=== PATIENT | male | born 1945 | race Caucasian/White ===

== ENCOUNTER 2017-02-27 09:24 | Observation (INO) | payer BC ==
--- NOTE | 2017-02-27 10:28 | RAD ---
ONE VIEW CHEST: Comparison: 01-21-17 History: Chest pain, low grade fever. FINDINGS: Stable left sided transvenous defibrillator. Note: Lead terminating over the right ventricle is not included on the current exam. Heart is enlarged. Pulmonary vessels are within normal limits. Costoph renic angles are clear. Chronic changes of the lung parenchyma. Hyperinflation is redemonstrated. No pneumothorax. Mild osteopenic changes. IMPRESSION: 1. Cardiomegaly. No evidence of congestive heart failure. 2. Left sided transvenous pacemaker, incompletely evaluated. POS: [facility]
[2017-02-27 10:38] LABS: #Eosinphils 0.1 thou/uL (0.0-0.7); #Lymphocytes 0.8 thou/uL (1.20-3.40); #Monocytes 0.4 thou/uL (0.11-0.59); #Neutrophils 9.2 thou/uL (1.40-6.50); %Basophils 0.3 % (0.0-1.0); %Eosinophils 0.9 % (0.0-10.0); %Lymphocytes 7.5 % (21.0-51.0); %Monocytes 3.6 % (0.0-10.0); Hematocrit 40.9 % (42.0-52.0); Mean Platelet Volume 6.9 fL (7.4-10.4); Red Blood Cell (RBC) Count 4.22 mill/uL (4.70-6.10); White Blood Cell (WBC) Count 10.5 thou/uL (4.8-10.8)
[2017-02-27 11:03] LABS: ALT (SGPT) 14 U/L (8-55); AST (SGOT) 14 U/L (5-34); Alkaline Phosphatase 80 U/L (40-150); Anion Gap 13 mmol/L (10-20); BUN (Urea Nitrogen) 35 mg/dL (8.4-25.7); Bilirubin, Total 0.5 mg/dL (0.2-1.2); CK (CPK) 42 U/L (30-200); Calc. Creatinine Clearance 0 mL/min (70-130); Calcium 9.3 mg/dL (7.8-10.44); Carbon Dioxide 28 mmol/L (23-31); Chloride 102 mmol/L (98-107); Estimated GFR-MDRD 39; Protein, Total 6.6 g/dL (5.8-8.1)
[2017-02-27 11:06] LABS: Troponin I 0.032 ng/mL (< 0.028)
[2017-02-27] MEDS ORDERED: Furosemide 40 MG/4 ML VIAL ONE (12:48)
--- NOTE | 2017-02-27 13:48 | HP ---
PRIMARY CARE PHYSICIAN: Dr. Wagner Mccormack. REASON FOR ADMISSION: Mild congestive heart failure and chronic obstructive pulmonary disease exace rbation. HISTORY OF PRESENT ILLNESS: A 71-year-old male who has chronic systolic heart failure with last ech ocardiography showed EF 20%-25%. He has an AICD in place. At the same time, he also has history of COPD, who came to the emergency room with complaint of 3 days history of increasing shortness of br eath, chest tightness and dizziness for the last 3 days. He also has cough productive of white sput um. He was feeling subjective feverish at home. He denies any orthopnea. He reports that he gaine d some weight. He does report lower extremity edema. The patient also reports that since yesterday , his blood sugar is also fluctuating too low to very high. The patient denies using oxygen at home. He was trying his inhalers without any significant help. As the patient's shortness of breath had gotten worse and more worse last night and that is why toda y patient decided to come to the emergency room. Patient called paramedics and paramedics saw him w ith low grade fever with a temperature of 99. He was wheezing in both lungs. Paramedics gave him D uoNeb therapy, Solu-Medrol 125 mg, and oxygen 2 liter nasal cannula and subsequently the patient was brought to emergency room. As per paramedics, his blood sugar was 262. Today in the emergency room, patient had electrocardiogram which showed pacemaker rhythm. Chest x-r ay showed cardiomegaly without any significant congestion. The patient's routine blood tests showed indeterminant troponin. At this point, we are admitting this patient for observation for mild COPD and CHF exacerbation. Patient reports that his normal baseline is he is able to walk 75 feet 2-3 times per day. The patie nt is still smoking at home. REVIEW OF SYSTEMS: The following complete review of systems was negative, unless otherwise mentione d in the HPI or below: Constitutional: Weight loss or gain, ability to conduct usual activities. Skin: Rash, itching. Eyes: Double vision, pain. ENT/Mouth: Nose bleeding, neck stiffness, pain, tenderness. Cardiovascular: Palpitations, dyspnea on exertion, orthopnea. Respiratory: Shortness of breath, wheezing, cough, hemoptysis, fever or night sweats. Gastrointestinal: Poor appetite, abdominal pain, heartburn, nausea, vomiting, constipation, or diar jesús. Genitourinary: Urgency, frequency, dysuria, nocturia. Musculoskeletal: Pain, swelling. Neurologic/Psychiatric: Anxiety, depression. Allergy/Immunologic: Skin rash, bleeding tendency. Please see my HPI for pertinent positives and negatives. All other review of system reviewed and ne gative except as mentioned in the HPI. PAST MEDICAL HISTORY: Coronary artery disease; ischemic cardiomyopathy; history of myocardial infar ction; chronic atrial fibrillation; history of pacemaker, which was upgraded to AICD; diabetes type 2, insulin requiring; hypertension; dyslipidemia; history of CVA; COPD; chronic systolic heart failu re with EF 20%-25%. PAST SURGICAL HISTORY: Appendicectomy, pacemaker placement and subsequent upgradation to defibrilla tor placement, bilateral cataract surgery. PAST PSYCHIATRIC HISTORY: Reviewed and negative. SOCIAL HISTORY: Patient lives at home with his . No history of alcohol abuse. He denies any o ther illicit drug abuse. Patient does have a history of smoking and he also intermittently smokes. He was a heavy smoker up until 2016. FAMILY HISTORY: No strong family history of premature coronary artery disease, stroke or cancer. ALLERGIES: No known drug allergies. CURRENT HOME MEDICATIONS: Symbicort 2 puff inhalation b.i.d., amiodarone 200 mg p.o. daily, Coreg 6 .25 mg p.o. b.i.d., Levemir 26 units subcu in morning, Lasix 20 mg p.o. daily, Coumadin 2 mg daily, Protonix 40 mg p.o. daily, aspirin 81 mg p.o. daily, Zocor 80 mg p.o. at bedtime, NovoLog insulin as per sliding scale. EMERGENCY ROOM COURSE: Patient is given DuoNeb therapy. PHYSICAL EXAMINATION: VITAL SIGNS: Currently, blood pressure 127/76, pulse 83, respiratory rate 26, temperature 98.8, sat uration 90% on room air and 96% on 2 liters oxygen, weight 99.7 kilograms. GENERAL: Patient is currently alert, awake, no obvious acute distress. Initially tachypneic, but n ow has improved after DuoNeb therapy. HEAD: Normocephalic, atraumatic. EYES: Pupils round, reactive to light. Extraocular muscle intact. ENT: Oropharynx within normal limits. Moist mucous membranes. No oral lesions. No pharyngeal brad thema, no exudates. NECK: Supple. Range of motion is normal. No meningeal signs of irritation, no obvious JVD noted. LUNGS: Few end expiratory wheezing heard, bibasilar rales noted. No accessory muscles of respirati on in use. CARDIAC: S1, S2 appears regular. No murmur, no gallop, no rub. AICD in place. No chest wall tend erness. ABDOMEN: Soft, bowel sounds present, nontender, nondistended. No organomegaly, no mass, no suprapu bic tenderness. BACK: Unremarkable, no CVA tenderness. EXTREMITIES: Upper extremity, passive movement of all joints are normal. Lower extremity, bilatera l pitting lower extremity edema noted. Good peripheral pulsation. SKIN: No skin rash. HEMATOLOGICAL: No lymphadenopathy. PSYCHIATRIC: Normal affect. NEUROLOGIC: The patient is alert, oriented x3, no focal neurological deficit noted. Speech normal. SIGNIFICANT LABORATORY DATA AND IMAGING: EKG based on my review, electronic ventricular pacemaker r hythm. Chest x-ray based on my review, cardiomegaly without any acute process. CBC: WBC 10.5, hem oglobin 12.8, platelets 169 with left shift. BMP shows sodium 139, potassium 4.3, chloride 102, car bon dioxide 28, anion gap 13, BUN 35, creatinine 1.71, glucose 250, calcium 9.3. Lactic acid 1.0. LFT: AST 14, ALT 14, alkaline phosphatase 80, albumin 3.6. CK 42, CK-MB 1.7, troponin I 0.032. BN P 513.8. ASSESSMENT AND PLAN: 1. Dyspnea on exertion, chest tightness, low grade fever, cough. This patient's presentation is co nsistent with both combined mild chronic obstructive pulmonary disease and congestive heart failure exacerbation. 2. Acute on chronic systolic congestive heart failure exacerbation. This patient has weight gain. He does have an elevated BNP. He does have cardiomegaly. He does have lower extremity pitting roxanne ma and pulmonary vascular congestion based on examination. This patient will benefit from Lasix 40 mg IV b.i.d. today and tomorrow. We will monitor BMP and we will monitor weight, input and output c earl, and replace electrolytes if needed. Upon discharge, we will increase his Lasix to 40 mg p.o. daily. Fluid balance and dietary education given. Congestive heart failure education given. 3. Mild chronic obstructive pulmonary disease exacerbation. This patient also has low grade fever with a left shift. He does have a cough productive of phlegm. He has underlying chronic obstructiv e pulmonary disease history. At this point, I will give him empiric antibiotic therapy with doxycyc line 100 mg p.o. b.i.d. We will continue with the DuoNeb therapy every 6 hourly an as needed basis along with Dulera two puffs inhalation b.i.d. I will also add Mucinex 600 mg twice daily. 4. Elevated troponin, likely due to demand ischemia. We will do 3 sets of cardiac enzymes to rule out acute coronary syndrome. 5. Chronic anticoagulation with warfarin. With the next blood draw, we will check PT/INR and we wi ll also repeat PT/INR tomorrow and based on that, we will continue the warfarin therapy. 6. Atrial fibrillation treated with pacemaker, currently on amiodarone 200 mg p.o. daily along with chronic anticoagulation therapy with warfarin. The patient's rate is under control. 7. Coronary artery disease. We will continue aspirin 81 mg p.o. daily, Zocor 80 mg p.o. at bedtime and we are trying to rule out acute coronary syndrome with serial cardiac enzymes. We will also co ntinue with nitro patch q.8 hourly. We will also continue with Coreg 3.125 mg p.o. b.i.d. Regardin g systolic congestive heart failure, the patient is not on HARSHAD inhibitor or ARB, because of renal in sufficiency. 8. Diabetes type 2. Patient reports that his blood sugar is fluctuating. At this point, I will co ntinue the Levemir 26 units subcutaneous daily and Humalog insulin as per sliding scale per protocol . Diabetic diet will be given. We will try to adjust his insulin dose before discharge. 9. Dyslipidemia. We will continue Zocor 40 mg p.o. at bedtime. 10. Chronic kidney disease stage 3. We will monitor renal function. 11. Deep venous thrombosis prophylaxis not needed, because the patient is already on warfarin thera py. 12. Gastrointestinal prophylaxis, Protonix 40 mg p.o. daily. CODE STATUS: Code status discussed with the patient, who can make decision by himself. The patient's is surrogate decision maker, but patient does not want intubation to be done. He is okay with CPR. We will respect his wishes and do not intubate order is written. Disposition and plan based on clinical course. At this point, I am expecting that patient should ge t better in 24-48 hours. Plan of care discussed with the patient in detail. Before discharge, we w ill also monitor his oxygen saturations and we will try to wean off oxygen to see his oxygen saturat ion is normal on room air, because he does not use oxygen and we will also do walking program to see his baseline status.
[2017-02-27 14:06] LABS: Troponin I 0.033 ng/mL (< 0.028)
[2017-02-27 15:34] VITALS: BMI 30.2
[2017-02-27] MEDS ORDERED: Milk Of Magnesia 30 ML UDCUP PO PRN (16:07)
[2017-02-27] MEDS ORDERED: Acetaminophen 325 MG TAB PO PRN (16:07)
[2017-02-27] MEDS ORDERED: Dextrose 50% Abboject 50 ML SYRINGE SLOW IVP PRN (16:07)
[2017-02-27] MEDS ORDERED: Eucerin (Mineral Oil/Petrolatum,White) 30 gm Jar TOP PRN (16:07)
[2017-02-27] MEDS ORDERED: Loratadine 10 MG TAB PO PRN (16:07)
[2017-02-27] MEDS ORDERED: HumaLOG 300 UNITS/3 ML VIAL SC PRN (16:07)
[2017-02-27] MEDS ORDERED: Ondansetron HCl/PF 4 MG/2 ML Vial IVP PRN (16:07)
[2017-02-27] MEDS ORDERED: Mag-Al 1200 mg/1200 mg/30 ML UDCUP PO PRN (16:07)
[2017-02-27] MEDS ORDERED: Loperamide HCl 2 MG CAP PO PRN (16:07)
[2017-02-27] MEDS ORDERED: Nitroglycerin 0.4 MG TAB (25 Tab Bottle) SL PRN (16:07)
[2017-02-27] MEDS ORDERED: Diabetic Tussin 200 MG/10 ML UDCUP PO PRN (16:07)
[2017-02-27] MEDS ORDERED: Dextrose 5% in Water 1,000 ML IV PRN (16:07)
[2017-02-27] MEDS ORDERED: Senokot 8.6 MG TAB PO PRN (16:07)
[2017-02-27] MEDS ORDERED: Benzonatate 100 MG CAP PO PRN (16:07)
[2017-02-27] MEDS ORDERED: Ondansetron ODT 4 MG TAB PO PRN (16:07)
[2017-02-27] MEDS ORDERED: Sodium Chloride 0.65% Nasal 44 ML BOT EA NARE PRN (16:07)
[2017-02-27 16:45] LABS: Troponin I 0.028 ng/mL (< 0.028)
[2017-02-27] MEDS ORDERED: Warfarin Sodium 2 MG TAB PO SCH (17:00)
[2017-02-27] MEDS: Furosemide 40 MG/4 ML VIAL SLOW IVP SCH (17:50)
[2017-02-27] MEDS: HumaLOG 300 UNITS/3 ML VIAL SC PRN (17:52)
[2017-02-27] MEDS: Mometasone/Formoterol 120 PUFF INHALER INH SCH (19:33)
[2017-02-27] MEDS: Doxycycline 100 MG CAP PO SCH (20:39)
[2017-02-27] MEDS: Carvedilol 6.25 MG TAB PO SCH (20:40)
[2017-02-27] MEDS: guaiFENesin ER 600 MG TAB PO SCH (20:40)
[2017-02-27] MEDS ORDERED: Simvastatin 40 MG TAB PO SCH (21:00)
[2017-02-28 04:35] LABS: Prothrombin Time 27.4 SEC (12.0-14.7)
[2017-02-28 04:42] LABS: Band 1 % (5-11); Mean Platelet Volume 7.4 fL (7.4-10.4); Neutrophil 94 % (42-75); Red Blood Cell (RBC) Count 4.12 mill/uL (4.70-6.10); White Blood Cell (WBC) Count 8.7 thou/uL (4.8-10.8)
[2017-02-28] MEDS: HumaLOG 300 UNITS/3 ML VIAL SC PRN (05:45)
[2017-02-28] MEDS: Furosemide 40 MG/4 ML VIAL SLOW IVP SCH (05:46)
[2017-02-28] MEDS: Mometasone/Formoterol 120 PUFF INHALER INH SCH (06:23)
[2017-02-28 07:47] VITALS: BP 119/85; TEMP 98.5
--- NOTE | 2017-02-28 08:11 | PDOC.PN ---
- Subjective Encounter Start Date: 02/28/17 Encounter Start Time: 08:09 - Objective Resuscitation Status: Resuscitation Status DNI:No Intubation MAR Reviewed: Yes Vital Signs & Weight: Vital Signs (12 hours) Temp Pulse Resp BP BP Pulse Ox 02/28/17 07:47 98.5 F 76 16 02/28/17 07:14 98.5 F 75 16 119/85 93 L 02/28/17 06:23 72 18 93 L 02/28/17 06:21 72 18 93 L 02/28/17 04:52 98.3 F 70 18 131/76 93 L 02/28/17 00:56 86 18 91 L 02/27/17 23:23 98.5 F 82 20 124/70 94 L 02/27/17 20:40 99.0 F 84 26 H Weight Weight 224 lb 1.6 oz I&O: 02/27/17 02/28/17 03/01/17 06:59 06:59 06:59 Intake Total 1320 400 Output Total 442 300 Balance 878 100 Result Diagrams: 02/28/17 04:14 02/27/17 10:24 Additional Labs: Accuchecks 02/28/17 02/27/17 02/27/17 05:39 20:37 17:17 POC Glucose 315 H 382 H 308 H Phys Exam - Physical Examination Constitutional: NAD HEENT: moist MMs, sclera anicteric Neck: no nodes, no JVD Respiratory: no wheezing, no rales, no rhonchi Cardiovascular: no significant murmur, no rub Gastrointestinal: soft, non-tender, positive bowel sounds Neurological: non-focal, moves all 4 limbs Psychiatric: normal affect Skin: no rash, normal turgor Dx/Plan (1) CHF exacerbation Code(s): I50.9 - HEART FAILURE, UNSPECIFIED Status: Acute (2) COPD exacerbation Code(s): J44.1 - CHRONIC OBSTRUCTIVE PULMONARY DISEASE W (ACUTE) EXACERBATION Status: Acute (3) Dyspnea Code(s): R06.00 - DYSPNEA, UNSPECIFIED Status: Acute (4) Afib Code(s): I48.91 - UNSPECIFIED ATRIAL FIBRILLATION Status: Chronic Qualifiers: (5) Ischemic cardiomyopathy Code(s): I25.5 - ISCHEMIC CARDIOMYOPATHY Status: Chronic (6) S/P implantation of automatic cardioverter/defibrillator (AICD) Code(s): Z95.810 - PRESENCE OF AUTOMATIC (IMPLANTABLE) CARDIAC DEFIBRILLATOR Status: Chronic - Plan Acute Systolic CHF exacerbation with Acute Bronchitis resulting in Dyspnea on Exertion * change IV lasix to PO (will double home dose to 40mg daily upon discharge) * continue Doxycycline will prescribe this for 7-day course * oxygen has been weaned off Uncontrolled DM2 * will increase Levemir to 19 units QAM today Dispo: Home today. Discharge Summary: [id number]
[2017-02-28] MEDS ORDERED: INSULIN DETEMIR SC SCH ×2 (09:00)
[2017-02-28] MEDS ORDERED: ADMIXTURE FEE SC SCH ×2 (09:00)
[2017-02-28] MEDS: guaiFENesin ER 600 MG TAB PO SCH (09:22)
[2017-02-28] MEDS: Carvedilol 6.25 MG TAB PO SCH (09:22)
[2017-02-28] MEDS: Doxycycline 100 MG CAP PO SCH (09:22)
--- NOTE | 2017-02-28 12:25 | DIS ---
DATE OF ADMISSION: 02/27/2017 DATE OF DISCHARGE: 02/28/2017 PRIMARY DISCHARGE DIAGNOSES: 1. Acute systolic congestive heart failure exacerbation with acute bronchitis resulting in dyspnea on exertion. 2. Uncontrolled diabetes mellitus, type 2. SECONDARY DISCHARGE DIAGNOSES: 1. Chronic obstructive pulmonary disease. 2. Atrial fibrillation. 3. Status post automatic implantable cardioverter-defibrillator. HOSPITAL COURSE SUMMARY: This is a very pleasant 71-year-old male, who presented with dyspnea on ex ertion, found to have acute systolic congestive heart failure exacerbation and acute bronchitis. He was treated with IV Lasix b.i.d. and placed on fluid restriction. He was also started on doxycycli ne and his oxygen has been weaned off. He feels a lot better today and is not complaining of any sh ortness of breath, chest pain, palpitations, nausea, or diaphoresis. For discharge physical examination, labs, and imaging, please refer to my progress note from earlier today. DISCHARGE MEDICATIONS: Reviewed and reconciled. Please refer to chart for details. DISCHARGE PLAN/DISPOSITION: 1. Discharge home today. 2. Follow up with PCP in 1 week. 3. We will double his dose of home Lasix from 20 mg to 40 mg daily. 4. New antibiotic will consist of doxycycline b.i.d. for 7 days.
== END 2017-02-28 11:20 | disposition home or self-care (01) ==
LOC: ERS 09:24 → 2SW 12:41
PROVIDERS: ADMIT Internal Medicine; ATTEND Internal Medicine
DX: I13.0 Hypertensive heart and chronic kidney disease with heart failure and stage 1 through stage 4 chronic kidney disease, or unspecified chronic kidney disease (principal); I50.23 Acute on chronic systolic (congestive) heart failure; J44.9 Chronic obstructive pulmonary disease, unspecified; J20.9 Acute bronchitis, unspecified; I48.91 Unspecified atrial fibrillation; I25.10 Atherosclerotic heart disease of native coronary artery without angina pectoris; I25.2 Old myocardial infarction; F17.200 Nicotine dependence, unspecified, uncomplicated; R77.8 Other specified abnormalities of plasma proteins; E78.5 Hyperlipidemia, unspecified; E11.22 Type 2 diabetes mellitus with diabetic chronic kidney disease; N18.3 Chronic kidney disease, stage 3 (moderate); Z79.82 Long term (current) use of aspirin; Z79.01 Long term (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 of anticoagulants; Z79.4 Long term (current) use of insulin; Z79.899 Other long term (current) drug therapy; Z91.018 Allergy to other foods; Z95.810 Presence of automatic (implantable) cardiac defibrillator; Z86.73 Personal history of transient ischemic attack (TIA), and cerebral infarction without residual deficits
CPT/HCPCS: 36415; 36416; 71010; 80053; 82553; 83605; 83880; 84484; 84550; 85007; 85025; 85027; 85610; 87040; 93005; 94640; 94760; 96374; 96376; G0378; J1815; J1940; J7620

== ENCOUNTER 2017-06-18 10:47 | Emergency (ER) | payer BC ==
--- NOTE | 2017-06-18 11:30 | RAD ---
CHEST 1 VIEW: Date: 06/18/17 HISTORY: Dyspnea. Edema. COMPARISON: 02/27/17. FINDINGS: Cardiac silhouette is magnified and enlarged. Pulmonary vasculature is engorged and accentuated by sh allow inspiration. Mediastinum is midline with aortic calcification and a multilead left subclavian c ardiac electronic device. No evidence of pneumothorax. IMPRESSION: 1. Pulmonary vascular congestion. 2. Atherosclerosis. POS: [facility]
[2017-06-18 11:56] LABS: #Basophils 0.1 thou/uL (0.0-0.2); #Eosinphils 0.4 thou/uL (0.0-0.7); #Lymphocytes 1.3 thou/uL (1.20-3.40); #Monocytes 0.8 thou/uL (0.11-0.59); #Neutrophils 5.6 thou/uL (1.40-6.50); %Basophils 0.9 % (0.0-1.0); %Eosinophils 4.4 % (0.0-10.0); %Lymphocytes 15.7 % (21.0-51.0); %Monocytes 9.5 % (0.0-10.0); %Neutrophils 69.5 % (42.0-75.0); Hemoglobin 11.8 g/dL (14.0-18.0); Mean Corpuscular HGB CONC 32.1 g/dL (32.0-36.0); Mean Corpuscular Hemoglobin 30.9 pg (27.0-31.0); Mean Corpuscular Volume 96.3 fl (80.0-94.0); Mean Platelet Volume 7.4 fL (7.4-10.4); Platelet Count 195 thou/uL (130-400); Red Blood Cell (RBC) Count 3.82 mill/uL (4.70-6.10); White Blood Cell (WBC) Count 8.1 thou/uL (4.8-10.8)
[2017-06-18 12:20] LABS: CKMB 2.5 ng/mL (0-6.6); Troponin I 0.063 ng/mL (< 0.028)
[2017-06-18 12:24] LABS: ALT (SGPT) 13 U/L (8-55); AST (SGOT) 23 U/L (5-34); Alkaline Phosphatase 99 U/L (40-150); Anion Gap 15 mmol/L (10-20); BUN (Urea Nitrogen) 38 mg/dL (8.4-25.7); Bilirubin, Total 0.6 mg/dL (0.2-1.2); CK (CPK) 89 U/L (30-200); Calc. Creatinine Clearance 0 mL/min (70-130); Calcium 9.1 mg/dL (7.8-10.44); Carbon Dioxide 28 mmol/L (23-31); Chloride 99 mmol/L (98-107); Estimated GFR-MDRD 33; Globulin 2.7 g/dL (2.4-3.5); Glucose 283 mg/dL (83-110); Protein, Total 6.7 g/dL (5.8-8.1); Sodium 137 mmol/L (136-145)
[2017-06-18] MEDS ORDERED: Furosemide 20 MG/2 ML VIAL ONE (13:24)
[2017-06-18] MEDS ORDERED: Water For Inject, Bacteriostat 30 ML ONE ×2 (13:24→13:48)
[2017-06-18] MEDS ORDERED: methylPREDNISolone Sod Succ/PF 125 MG/2 ML VIAL ONE ×2 (13:24→13:47)
[2017-06-18] MEDS ORDERED: Furosemide 40 MG/4 ML VIAL ONE (13:24)
[2017-06-18 14:08] LABS: Troponin I 0.051 ng/mL (< 0.028)
--- NOTE | 2017-07-14 18:59 | EKG ---
Test Reason : Blood Pressure : / mmHG Vent. Rate : 098 BPM Atrial Rate : 100 BPM P-R Int : 000 ms QRS Dur : 174 ms QT Int : 462 ms P-R-T Axes : 000 097 040 degrees QTc Int : 589 ms Ventricular-paced rhythm Abnormal ECG Confirmed by MAXIM BISWAS, UZMA Jaramillo ([id number]), editor map JOHNATHON CARBAJAL ([id number]) on 07/14/2017 6:58:25 PM Referred By: Confirmed By:UZMA PAN MD
== END 2017-06-18 14:18 | disposition home or self-care (01) ==
LOC: ERS 10:47
DX: J44.1 Chronic obstructive pulmonary disease with (acute) exacerbation (principal); R60.0 Localized edema; E11.9 Type 2 diabetes mellitus without complications; E78.5 Hyperlipidemia, unspecified; F17.210 Nicotine dependence, cigarettes, uncomplicated; I25.10 Atherosclerotic heart disease of native coronary artery without angina pectoris; I25.2 Old myocardial infarction; I48.91 Unspecified atrial fibrillation; I42.9 Cardiomyopathy, unspecified; I10 Essential (primary) hypertension; Z86.73 Personal history of transient ischemic attack (TIA), and cerebral infarction without residual deficits; Z79.82 Long term (current) use of aspirin; Z79.899 Other long term (current) drug therapy
CPT/HCPCS: 36416; 71045; 80053; 82553; 84484; 85025; 87040; 87804; 93005; 94640; 96374; 96375; J1940; J2930; J7620

== ENCOUNTER 2017-07-31 18:37 | Observation (INO) | payer MEDICARE, BC ==
[2017-07-31 19:13] LABS: #Eosinphils 0.2 thou/uL (0.0-0.7); #Lymphocytes 1.1 thou/uL (1.20-3.40); #Monocytes 0.6 thou/uL (0.11-0.59); #Neutrophils 7.1 thou/uL (1.40-6.50); %Basophils 0.3 % (0.0-1.0); %Eosinophils 2.2 % (0.0-10.0); %Lymphocytes 12.1 % (21.0-51.0); %Neutrophils 78.4 % (42.0-75.0); Hemoglobin 11.7 g/dL (14.0-18.0); Mean Corpuscular HGB CONC 32.4 g/dL (32.0-36.0); Mean Corpuscular Hemoglobin 30.3 pg (27.0-31.0); Mean Corpuscular Volume 93.5 fl (80.0-94.0); Platelet Count 209 thou/uL (130-400); RBC Distribution Width 14.4 % (11.5-14.5); Red Blood Cell (RBC) Count 3.86 mill/uL (4.70-6.10); White Blood Cell (WBC) Count 9.1 thou/uL (4.8-10.8)
[2017-07-31 19:41] LABS: ALT (SGPT) 12 U/L (8-55); AST (SGOT) 11 U/L (5-34); Albumin 3.4 g/dL (3.4-4.8); Alkaline Phosphatase 111 U/L (40-150); Anion Gap 12 mmol/L (10-20); BUN (Urea Nitrogen) 34 mg/dL (8.4-25.7); Bilirubin, Total 0.3 mg/dL (0.2-1.2); CK (CPK) 71 U/L (30-200); Calc. Creatinine Clearance 0 mL/min (70-130); Calcium 8.5 mg/dL (7.8-10.44); Carbon Dioxide 29 mmol/L (23-31); Chloride 101 mmol/L (98-107); Estimated GFR-MDRD 31; Globulin 2.6 g/dL (2.4-3.5); Glucose 341 mg/dL (83-110); Potassium 4.5 mmol/L (3.5-5.1); Sodium 137 mmol/L (136-145)
[2017-07-31 19:44] LABS: CKMB 2.5 ng/mL (0-6.6)
--- NOTE | 2017-07-31 19:48 | RAD ---
CHEST ONE VIEW 07/31/17 HISTORY: Dyspnea. Chest pain. COMPARISON: 06/18/17. FINDINGS: The cardiac silhouette is magnified and enlarged. Pulmonary vasculature is more engorged with patchy bilateral perihilar and bibasilar infiltrates. Mediastinum is midline with aortic calcification and a multilead left subclavian cardiac electronic device. No confluent air space consolidation or evidenc e of pneumothorax. IMPRESSION: Increasing pulmonary vascular congestion with cardiomegaly. POS: [facility]
[2017-07-31] MEDS ORDERED: Furosemide 20 MG/2 ML VIAL ONE (20:17)
[2017-07-31] MEDS ORDERED: Nitroglycerin 2% Ointment 1 INCH/1 GM Packet ONE (21:44)
[2017-07-31 22:47] LABS: Troponin I 0.092 ng/mL (< 0.028)
[2017-07-31] MEDS ORDERED: Acetaminophen 325 MG TAB PO PRN (23:43)
[2017-07-31] MEDS ORDERED: Ondansetron ODT 4 MG TAB SL PRN (23:43)
[2017-07-31] MEDS ORDERED: Ondansetron HCl/PF 4 MG/2 ML Vial IVP PRN (23:43)
--- NOTE | 2017-07-31 23:44 | PDOC.EVN ---
Event Note - Event Note Event Note: Attending note. Pt with on/off shortness of breath. Was bad enough today to come in. Has been having progressive abd swelling, some leg swelling. No cough or sputum production. No fever, chills, n/v, cp/PND/orthopnea. PMH/PSH/FH/Meds/all/SH and ROS reviewed. See resident note. NAD, watching TV RRR s M, AICD in place, no obvious JVD, bearded neck, pitting edema BLE Diffuse trace exp wheezes, good air movement, tachypnea with minimal increased wob BS+, NTTP, no palp organomegaly labs and imaging reviewed Acute on chronic systolic HF exacerbation -lasix -TTE -strict I&O, limit PO Acute hypoxic respiratory failure -possible component of COPD, but no distinct symptom -nebs q4h, hold on steroids pending clinical course as I suspect cardiac wheeze -if no improvement with diuresis will add above DMII -continue home dose, low carb diet -check A1c -adjust insulin PRN CKD -stable, monitor Anemia -stable, monitor Anticoagulated -check INR On digoxin - level pending Tobacco abuse -counseled cessation Obesity -discussed diet and exercise DVT ppx pending INR GI ppx with diet
--- NOTE | 2017-07-31 23:47 | PDOC.FPRHP ---
- History of Present Illness Chief Complaint: SOB History of Present Illness: 72 yo M w/hx of COPD, DM2, and CHF here with complaint of SOB with associated cough. He states that he has noticed progressively worsening SOB for the past month, however it has acutely worsened over the past 2 days. He denies associated fever/chills, purulent sputum, 2 pillow orthopnea, or chest pain. He states that he did notice LE edema which resolved with increasing his dose of lasix. Regarding the COPD, pt states that the only med he is on is albuterol and that he has been using his inhaler multiple times per day for a few months. Regarding CHF, pt has not had an echo for 2 years. He has an AICD in place Regarding DM2, pt states that as of recent his BG has been uncontrolled with measurements as high as 500 ED Course: In the ED he was found to have O2 sat in the low 90s, this improved to high 90s with the addition of 2L O2 by NC. He has no O2 requirement at home. - Allergies/Adverse Reactions Allergies Allergy/AdvReac Type Severity Reaction Status Date / Time ham Allergy Unknown Uncoded 07/31/17 23:55 - Home Medications Medication Instructions Recorded Confirmed Type Amiodarone HCl 200 mg PO DAILY 11/26/16 07/31/17 History Aspirin [Aspirin Chewable Tablet] 81 mg PO DAILY 11/26/16 07/31/17 History Budesonide [Pulmicort Flexhaler] 2 puff INH BID 11/26/16 07/31/17 History Carvedilol [Coreg] 3.125 mg PO BID 11/26/16 07/31/17 History Insulin Detemir 100 UNITS/ML 26 unit SQ QAM 11/26/16 07/31/17 History [Levemir] Simvastatin 80 mg PO QPM 11/26/16 07/31/17 History Warfarin Sodium [Coumadin] 2 mg PO DAILY 11/26/16 07/31/17 History Furosemide [Lasix] 40 mg PO DAILY #30 tablet 02/28/17 07/31/17 Rx Ferrous Sulfate [Feosol] 324 mg PO BID 07/31/17 07/31/17 History Furosemide [Lasix] 20 mg PO 1400 07/31/17 07/31/17 History - History PMHx: DM2 CHF COPD CAD Afib PSHx: AICD placement FHx: Social: 30+ pack year hx of smoking - Review of Systems General: denies: fever/chills, weight/appetite/sleep changes Eyes: denies: eye pain, vision changes ENT: denies: nasal congestion, rhinorrhea Respiratory: reports: cough, shortness of breath, exercise intolerance. denies : congestion Cardiovascular: reports: edema. denies: chest pain, palpitation, paroxysmal nocturnal dyspnea, orthopnea Gastrointestinal: denies: nausea, vomiting Genitourinary: reports: polyuria. denies: incontinence, dysuria Skin: denies: rashes, lesions Musculoskeletal: denies: pain, tenderness, stiffness Neurological: denies: numbness, syncope Psychological: denies: anxiety, depression - Vital signs BP: 125/91 HR: 82 RR: 20 Tmax: 98.7 Pox: 97% on 2L Wt: 108kg - Physical Exam Constitutional: NAD, awake, alert and oriented HEENT: normocephalic and atraumatic, PERRLA, EOMI Neck: supple, FROM Chest: no-tender to palpation, no lesions Heart: normal S1/S2, no murmurs/rubs/gallops, other (Irregularly irregular rhythm. Mild pitting edema to below the knee b/l) Lungs: no rales/rhonchi, no retractions, other (Wheezing throughout) Abdomen: soft, non-tender, bowel sounds present Musculoskeletal: normal structure, normal tone Neurological: no focal deficit, CN II-XII intact Skin: no rash/lesions, good turgor Heme/Lymphatic: no unusual bruising or bleeding Psychiatric: normal mood and affect FMR H&P: Results - Labs Result Diagrams: 07/31/17 19:04 07/31/17 19:04 Lab results: WBC 9.1 thou/uL (4.8-10.8) 07/31/17 19:04 Hgb 11.7 g/dL (14.0-18.0) L 07/31/17 19:04 Hct 36.1 % (42.0-52.0) L 07/31/17 19:04 MCV 93.5 fl (80.0-94.0) 07/31/17 19:04 Plt Count 209 thou/uL (130-400) 07/31/17 19:04 Neutrophils % 78.4 % (42.0-75.0) H 07/31/17 19:04 Sodium 137 mmol/L (136-145) 07/31/17 19:04 Potassium 4.5 mmol/L (3.5-5.1) 07/31/17 19:04 Chloride 101 mmol/L (98-107) 07/31/17 19:04 Carbon Dioxide 29 mmol/L (23-31) 07/31/17 19:04 BUN 34 mg/dL (8.4-25.7) H 07/31/17 19:04 Creatinine 2.12 mg/dL (0.6-1.3) H 07/31/17 19:04 Glucose 341 mg/dL (83-110) H 07/31/17 19:04 Calcium 8.5 mg/dL (7.8-10.44) 07/31/17 19:04 Total Bilirubin 0.3 mg/dL (0.2-1.2) 07/31/17 19:04 AST 11 U/L (5-34) 07/31/17 19:04 ALT 12 U/L (8-55) 07/31/17 19:04 Alkaline Phosphatase 111 U/L (40-150) 07/31/17 19:04 Creatine Kinase 71 U/L (30-200) 07/31/17 19:04 CK-MB (CK-2) 2.5 ng/mL (0-6.6) 07/31/17 19:04 B-Natriuretic Peptide 481.4 pg/mL (0-100) H 07/31/17 19:03 Serum Total Protein 6.0 g/dL (5.8-8.1) 07/31/17 19:04 Albumin 3.4 g/dL (3.4-4.8) 07/31/17 19:04 - EKG Interpretation EKG: Paced rhythm - Radiology Interpretation Chest x-ray Status: report reviewed by me (Increased pulmonary vascular congestion) FMR H&P: A/P - Problem List (1) Acute exacerbation of CHF (congestive heart failure) Current Visit: Yes Status: Acute Priority: High Code(s): I50.9 - HEART FAILURE, UNSPECIFIED Comment: last ef was 25% in 2016 (2) COPD exacerbation Current Visit: Yes Status: Suspected Priority: High Code(s): J44.1 - CHRONIC OBSTRUCTIVE PULMONARY DISEASE W (ACUTE) EXACERBATION (3) Afib Current Visit: Yes Status: Chronic Priority: Medium Code(s): I48.91 - UNSPECIFIED ATRIAL FIBRILLATION Qualifiers: Atrial fibrillation type: chronic Qualified Code(s): I48.2 - Chronic atrial fibrillation (4) Anemia Current Visit: Yes Status: Chronic Priority: Medium Code(s): D64.9 - ANEMIA, UNSPECIFIED Qualifiers: Anemia type: unspecified type Qualified Code(s): D64.9 - Anemia, unspecified (5) CAD (coronary artery disease) Current Visit: Yes Status: Chronic Priority: Medium Code(s): I25.10 - ATHSCL HEART DISEASE OF [place] CORONARY ARTERY W/O ANG PCTRS Qualifiers: Coronary Disease-Associated Artery/Lesion type: [place] artery [place] vs. transplanted heart: [place] heart Associated angina: without angina Qualified Code(s): I25.10 - Atherosclerotic heart disease of [place] coronary artery without angina pectoris (6) CKD (chronic kidney disease) stage 3, GFR 30-59 ml/min Current Visit: Yes Status: Chronic Priority: Medium (7) DM2 (diabetes mellitus, type 2) Current Visit: Yes Status: Chronic Qualifiers: Diabetes mellitus complication status: with kidney complications Diabetes mellitus complication detail: with chronic kidney disease Diabetes mellitus nursing home insulin use: with terminal gauger use Chronic kidney disease stage: stage 3 (moderate) Qualified Code(s): E11.22 - Type 2 diabetes mellitus with diabetic chronic kidney disease; N18.3 - Chronic kidney disease, stage 3 ( moderate); N18.3 - Chronic kidney disease, stage 3 (moderate); Z79.4 - [facility] (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 of insulin; Z79.4 - [facility] (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 of insulin; Z79.4 - [facility] (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 of insulin; Z79.4 - [facility] (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 of insulin - Plan CHF exacerbation - Give lasix PO - Strict i/o - Fluid restriction to 1500mL/day - Na restriction to 15g/day - Consider weaning O2 tomorrow depending on diuresis - echo in am as it has been 2 years - admit to tele COPD exacerbation - PO prednisone, azithromycin, duoneb scheduled - Will also start on ICS/LABA given his albuterol usage - O2 as above CAD - continue statin and ASA Afib - continue warfarin - order coags - it is unclear as to if the patient is taking dig. He states that he is, however it is not in his pharmacy's record as retrieved by [employer]. Will order level. - tele as above DM2 - start home Levemir - Moderate SSI - BG ACHS - low carb and HH diet CKD III - pt at baseline, monitor BMP Anemia - stable, chronic. Monitor with morning labs DVT Px - SCD, pt is on warfarin Disposition/LOS: Pt is currently stable. Will likely discharge in 24-48 hours. FMR H&P: Upper Level - Pertinent history Patient is a 72yo CM with PMHx of sCHF (EF 20-25% per previous H&P), COPD, T2DM , HTN, HLD, CAD w/ AICD placement, hx of MS (2008) who presents with worsening shortness of breath and leg swelling over the past few days. Patient with recurrent hospitalizations for CHF and COPD exacerbations. States he is compliant with medications and fluid restriction diet. Endorses non-productive and wheezing. Only neb for COPD and has been using it 2x/day for the past 4mo. Denies orthopnea, paroxysmal dyspnea, chest pain, fevers, chills, N/V, diarrhea. No sick contacts. - Pertinent findings Gen: NAD Heart: S1 S2, RRR, ACID in place Lungs: diffuse expiratory wheezing Abd: soft, nt/nd/bs+ Ext: BL LE 1+ pitting edema to knees - Plan Date/Time: 07/31/17 2336 IRossi, have evaluated this patient and agree with findings/ plan as outlined by [employer] compliance internship resident. Pertinent changes/additions are listed here. 1. Acute on Chronic CHF exacerbation: Patient with BNP at 481.4 and CXR showing pulmonary vascular congestion. Previous H&P in 02/2017 reports EF of 20-25% with last ECHO report in 2014 showing EF of 35-40%. Currently on Lasix 40mg qAM and 20mg qPM. Given Lasix 40mg iv in ED. Cont IV Lasix. Strict I/Os. Weight patient daily. Fluid restrict. Obtain ECHO. Consult HF Clinic. 2. COPD exacerbation: Azithromycin, PO steroids and duonebs faye. Patient only on neb at home for treatment and will step up regimen. 3. Indeterminate trops: Asymptomatic. Trend q3H. 4. GAVIN vs CKDIII: monitor closely. No IVF due to #1. 5. Chronic Afib: cont home warfarin. Check INR. 6. T2DM: Check A1c. Cont home insulin regimen. Accuchecks ACHS. Mild SSI. 7. HTN: cont home meds 8. HLD: cont home meds 9. CAD w/ AICD: cont home meds 10. Diet: HH/CC and fluid restrict 11. PPx: warfarin 12. Code Status: DNI Attending Addendum - Attending Addendum Date/Time: 08/01/17 9898 I personally evaluated the patient and discussed the management with Dr. Regalado and Jacklyn. I agree with and repeated the History, Examination, Assessment and Plan documented above with any addition or exceptions noted below. 1.5 g Na. See my event note.
[2017-07-31] MEDS ORDERED: Furosemide 40 MG/4 ML VIAL SLOW IVP SCH (23:59)
[2017-08-01 00:01] VITALS: BMI 33.1
[2017-08-01] MEDS ORDERED: Dextrose 5% in Water 1,000 ML IV PRN (00:40)
[2017-08-01] MEDS ORDERED: Dextrose 50% Abboject 50 ML SYRINGE SLOW IVP PRN (00:40)
[2017-08-01] MEDS ORDERED: HumaLOG 300 UNITS/3 ML VIAL SC PRN (00:40)
[2017-08-01] MEDS: Nitroglycerin 2% Ointment 1 INCH/1 GM Packet TOP SCH ×2 (01:05→05:41)
[2017-08-01 01:18] LABS: INR-International Normal Ratio 1.9; Prothrombin Time 22.7 SEC (12.0-14.7)
[2017-08-01 01:35] LABS: Troponin I 0.086 ng/mL (< 0.028)
[2017-08-01 03:33] LABS: Digoxin Less than 0.15 ng/mL (0.8-2.0)
[2017-08-01 04:56] LABS: Anion Gap 16 mmol/L (10-20); BUN (Urea Nitrogen) 41 mg/dL (8.4-25.7); Calc. Creatinine Clearance 47 mL/min (70-130); Calcium 8.5 mg/dL (7.8-10.44); Carbon Dioxide 24 mmol/L (23-31); Chloride 97 mmol/L (98-107); Estimated GFR-MDRD 30; Sodium 132 mmol/L (136-145)
[2017-08-01 04:59] LABS: Glucose 585 mg/dL (83-110)
[2017-08-01 05:02] LABS: #Lymphocytes 0.5 thou/uL (1.20-3.40); #Monocytes 0.1 thou/uL (0.11-0.59); #Neutrophils 10.1 thou/uL (1.40-6.50); %Eosinophils 0.1 % (0.0-10.0); %Lymphocytes 4.5 % (21.0-51.0); %Monocytes 0.8 % (0.0-10.0); %Neutrophils 94.5 % (42.0-75.0); Hemoglobin 12.2 g/dL (14.0-18.0); Mean Corpuscular HGB CONC 31.7 g/dL (32.0-36.0); Mean Corpuscular Hemoglobin 30.8 pg (27.0-31.0); Mean Platelet Volume 7.6 fL (7.4-10.4); Platelet Count 195 thou/uL (130-400); RBC Distribution Width 14.5 % (11.5-14.5); Red Blood Cell (RBC) Count 3.98 mill/uL (4.70-6.10); White Blood Cell (WBC) Count 10.7 thou/uL (4.8-10.8)
[2017-08-01] MEDS: HumaLOG 300 UNITS/3 ML VIAL SC PRN ×6 (05:41→20:42)
[2017-08-01] MEDS: Furosemide 40 MG/4 ML VIAL SLOW IVP SCH ×2 (05:41→13:23)
[2017-08-01] MEDS ORDERED: Furosemide 40 MG/4 ML VIAL SLOW IVP SCH (06:00)
--- NOTE | 2017-08-01 08:38 | PDOC.FM ---
- Subjective Subjective: This morning the patient reports that he slept well overnight. Denies cough or SOB. States he is ambulating without difficulty. He denies pain at this time. No other concerns at time of visit. - Objective Vital Signs & Weight: Vital Signs (12 hours) Temp Pulse Resp BP BP Pulse Ox 08/01/17 07:48 98.5 F 91 16 138/71 94 L 08/01/17 03:46 97.7 F 78 20 126/69 93 L 08/01/17 01:43 82 20 97 07/31/17 23:15 98.2 F 83 18 124/69 93 L Weight Weight 108.998 kg I&O: 07/31/17 08/01/17 08/02/17 06:59 06:59 06:59 Intake Total 800 Output Total 1315 Balance -515 Result Diagrams: 08/01/17 04:00 08/01/17 04:00 <Darron Crowley - Last Filed: 08/01/17 09:33> - Objective Vital Signs & Weight: Vital Signs (12 hours) Temp Pulse Pulse Pulse Resp BP BP 08/01/17 11:58 98.4 F 97 16 120/64 08/01/17 10:57 99 86 138/74 08/01/17 09:01 98.2 F 91 16 138/71 08/01/17 08:00 98.5 F 91 16 138/71 08/01/17 07:48 98.5 F 91 16 138/71 08/01/17 03:46 97.7 F 78 20 BP BP Pulse Ox Pulse Ox Pulse Ox 08/01/17 11:58 95 08/01/17 10:57 144/69 H 97 99 08/01/17 09:01 94 L 08/01/17 08:00 94 L 08/01/17 07:48 94 L 08/01/17 03:46 126/69 93 L Weight Weight 108.998 kg I&O: 07/31/17 08/01/17 08/02/17 06:59 06:59 06:59 Intake Total 800 4 Output Total 1315 Balance -515 4 Result Diagrams: 08/01/17 04:00 08/01/17 04:00 <Yissel Ledezma - Last Filed: 08/01/17 14:21> Phys Exam - Physical Examination Constitutional: NAD HEENT: PERRLA, moist MMs Neck: no nodes, full ROM Respiratory: wheezing present mild insp. and expiratory wheezes, no congestion at bases Cardiovascular: no significant murmur irregularly irregular rhythm, rate-controlled Gastrointestinal: soft, non-tender, no distention, positive bowel sounds Musculoskeletal: pulses present Mild edema on R lower ext., denies pain Neurological: non-focal, moves all 4 limbs Psychiatric: normal affect, A&O x 3 Skin: no rash, normal turgor, cap refill <2 seconds <Darron Crowley - Last Filed: 08/01/17 09:33> Dx/Plan (1) Acute exacerbation of CHF (congestive heart failure) Code(s): I50.9 - HEART FAILURE, UNSPECIFIED Status: Acute (2) Afib Code(s): I48.91 - UNSPECIFIED ATRIAL FIBRILLATION Status: Chronic QualifierTitle: Atrial fibrillation type: chronic Qualified Code(s): I48.2 - Chronic atrial fibrillation (3) Anemia Code(s): D64.9 - ANEMIA, UNSPECIFIED Status: Chronic QualifierTitle: Anemia type: unspecified type Qualified Code(s): D64.9 - Anemia, unspecified (4) CAD (coronary artery disease) Code(s): I25.10 - ATHSCL HEART DISEASE OF [place] CORONARY ARTERY W/O ANG PCTRS Status: Chronic QualifierTitle: Coronary Disease-Associated Artery/Lesion type: [place] artery [place] vs. transplanted heart: [place] heart Associated angina: without angina Qualified Code(s): I25.10 - Atherosclerotic heart disease of [place] coronary artery without angina pectoris (5) CKD (chronic kidney disease) stage 3, GFR 30-59 ml/min Status: Chronic (6) DM2 (diabetes mellitus, type 2) Status: Chronic QualifierTitle: Diabetes mellitus complication status: with kidney complications Diabetes mellitus complication detail: with chronic kidney disease Diabetes mellitus manager long term care insulin use: with [facility] use Chronic kidney disease stage: stage 3 (moderate) Qualified Code(s): E11.22 - Type 2 diabetes mellitus with diabetic chronic kidney disease; N18.3 - Chronic kidney disease, stage 3 (moderate); N18.3 - Chronic kidney disease, stage 3 (moderate) ; 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; Z79.4 - [facility] (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 of insulin; 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; Z79.4 - [facility] ( 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 of insulin (7) COPD exacerbation Code(s): J44.1 - CHRONIC OBSTRUCTIVE PULMONARY DISEASE W (ACUTE) EXACERBATION Status: Suspected (8) GAVIN (acute kidney injury) Code(s): N17.9 - ACUTE KIDNEY FAILURE, UNSPECIFIED Status: Acute (9) Dyspnea Code(s): R06.00 - DYSPNEA, UNSPECIFIED Status: Acute (10) Anticoagulant long-term use Code(s): Z79.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) USE OF ANTICOAGULANTS Status: Chronic (11) S/P implantation of automatic cardioverter/defibrillator (AICD) Code(s): Z95.810 - PRESENCE OF AUTOMATIC (IMPLANTABLE) CARDIAC DEFIBRILLATOR Status: Chronic - Plan Plan: # CHF exacerbation - IV lasix 40mg BID - AICD in place - Strict i/o - Fluid restriction to 1500mL/day - wean O2 as able - H&P 02/2017 states EF 20-25%, last Echo report from 2014 shows EF 35-40% - obtain echo this AM -HF clinic consulted - admit to tele # COPD exacerbation - PO prednisone, azithromycin, duoneb scheduled - on symbicort at home, has not been using it correctly - Has duonebs at home as well - Spiriva is on home med list, unclear whether or not he has been using this - O2 as above # CAD - continue statin and ASA - troponin .08-> .092 -> .086 # Afib - continue warfarin - order coags - patient says he is taking digoxin, dig level is negligible - tele as above # GAVIN vs. CKD - no fluids 2/2 CHF - will trend Cr # DM2 - f/u on A1C - start home Levemir - Moderate SSI - Accucheck q 2 hr - blood sugar > 580 this AM, likely 2/2 steroid - low carb and HH diet # Anemia - stable, chronic. Monitor with morning labs # HLD - home meds # DVT Px - SCD, pt is on warfarin # Code Status - DNR <Darron Crowley - Last Filed: 08/01/17 09:33> Attending Addendum - Attending Addendum Date/Time: 08/01/17 0928 I personally evaluated the patient and discussed the management with Dr. Crowley on 08/01/17. I agree with the History, Examination, Assessment and Plan documented above with any addition or exceptions noted below. Clinically improved today. Continue PT, weaning O2. Diabetes markedly uncontrolled, worse with steroids. Will aggressively titrate home insulin. <Yissel Ledezma - Last Filed: 08/01/17 14:21>
[2017-08-01] MEDS ORDERED: Azithromycin 250 MG TAB PO SCH (09:00)
[2017-08-01] MEDS ORDERED: INSULIN DETEMIR SC SCH (09:00)
[2017-08-01] MEDS ORDERED: ADMIXTURE FEE SC SCH (09:00)
[2017-08-01] MEDS: predniSONE 20 MG TAB PO SCH (09:10)
[2017-08-01 17:25] LABS: Glucose Accucheck Confirmation 282 mg/dl (83-110)
[2017-08-01] MEDS: Budesonide 0.5 MG/2 ML NEB INH SCH (18:26)
[2017-08-01 21:16] LABS: CKMB 3.6 ng/mL (0-6.6); Troponin I 0.069 ng/mL (< 0.028)
--- NOTE | 2017-08-01 21:16 | RAD ---
CHEST ONE VIEW 08/01/17 HISTORY: Chest pain. FINDINGS: The cardiac silhouette is magnified and enlarged. Pulmonary vasculature is upper limits of normal. Me diastinum is midline with aortic calcification and a multilead left subclavian cardiac electronic dev ice. No lobar consolidation or evidence of pneumothorax. IMPRESSION: 1. Cardiomegaly. Mild pulmonary vascular congestion. 2. Atherosclerosis. POS: [facility]
[2017-08-01 21:17] LABS: Glucose Accucheck Confirmation 258 mg/dl (83-110)
[2017-08-01] MEDS: Atorvastatin Calcium 40 MG TAB PO SCH (22:14)
[2017-08-02] MEDS: HumaLOG 300 UNITS/3 ML VIAL SC PRN ×6 (01:06→21:37)
[2017-08-02] MEDS: Furosemide 40 MG/4 ML VIAL SLOW IVP SCH ×2 (05:44→14:10)
[2017-08-02] MEDS: Budesonide 0.5 MG/2 ML NEB INH SCH ×2 (06:22→19:05)
--- NOTE | 2017-08-02 07:04 | PDOC.FM ---
- Subjective Subjective: This morning the patient states he is feeling well overall. States he had no difficulty walking up and down the [place] yesterday. States he is not coughing. State he is eating and drinking well. States he is feeling ready to go home. - Objective Vital Signs & Weight: Vital Signs (12 hours) Temp Pulse Resp BP BP Pulse Ox 08/02/17 06:22 96 16 92 L 08/02/17 04:00 98.0 F 95 18 114/66 92 L 08/02/17 00:00 98.4 F 95 18 129/71 94 L 08/01/17 22:22 95 20 94 L 08/01/17 19:30 98.4 F 85 18 128/64 93 L Weight Weight 110.813 kg I&O: 08/01/17 08/02/17 08/03/17 06:59 06:59 06:59 Intake Total 804 1448 Output Total 8422 7726 Balance -973 -892 Result Diagrams: 08/01/17 04:00 08/01/17 04:00 <Darron Crowley - Last Filed: 08/02/17 08:56> - Objective Vital Signs & Weight: Vital Signs (12 hours) Temp Pulse Pulse Pulse Resp BP BP 08/02/17 11:49 98.3 F 98 18 142/84 H 08/02/17 10:47 93 90 121/84 08/02/17 09:53 90 16 08/02/17 09:32 18 08/02/17 08:00 97.9 F 80 16 134/70 08/02/17 07:48 97.9 F 80 16 134/70 08/02/17 06:22 96 16 08/02/17 04:00 98.0 F 95 18 BP BP Pulse Ox Pulse Ox Pulse Ox 08/02/17 11:49 93 L 08/02/17 10:47 120/65 98 94 L 08/02/17 09:53 92 L 08/02/17 09:32 92 L 08/02/17 08:00 98 08/02/17 07:48 98 08/02/17 06:22 92 L 08/02/17 04:00 114/66 92 L Weight Weight 110.813 kg I&O: 08/01/17 08/02/17 08/03/17 06:59 06:59 06:59 Intake Total 804 1448 Output Total 2852 1657 Balance -832 -842 Result Diagrams: 08/01/17 04:00 08/01/17 04:00 <BrisaYissel - Last Filed: 08/02/17 12:39> Phys Exam - Physical Examination HEENT: PERRLA, moist MMs Neck: no nodes, full ROM Respiratory: wheezing present expiratory wheezes bilaterally Cardiovascular: RRR, no significant murmur, no rub Gastrointestinal: soft, non-tender, no distention Musculoskeletal: pulses present Neurological: non-focal, normal sensation Psychiatric: normal affect, A&O x 3 Skin: no rash, normal turgor, cap refill <2 seconds <Darron Crowley - Last Filed: 08/02/17 08:56> Dx/Plan (1) Acute exacerbation of CHF (congestive heart failure) Code(s): I50.9 - HEART FAILURE, UNSPECIFIED Status: Acute (2) Afib Code(s): I48.91 - UNSPECIFIED ATRIAL FIBRILLATION Status: Chronic QualifierTitle: Atrial fibrillation type: chronic Qualified Code(s): I48.2 - Chronic atrial fibrillation (3) Anemia Code(s): D64.9 - ANEMIA, UNSPECIFIED Status: Chronic QualifierTitle: Anemia type: unspecified type Qualified Code(s): D64.9 - Anemia, unspecified (4) CAD (coronary artery disease) Code(s): I25.10 - ATHSCL HEART DISEASE OF [place] CORONARY ARTERY W/O ANG PCTRS Status: Chronic QualifierTitle: Coronary Disease-Associated Artery/Lesion type: [place] artery [place] vs. transplanted heart: [place] heart Associated angina: without angina Qualified Code(s): I25.10 - Atherosclerotic heart disease of [place] coronary artery without angina pectoris (5) CKD (chronic kidney disease) stage 3, GFR 30-59 ml/min Status: Chronic (6) DM2 (diabetes mellitus, type 2) Status: Chronic QualifierTitle: Diabetes mellitus complication status: with kidney complications Diabetes mellitus complication detail: with chronic kidney disease Diabetes mellitus long term care pharmacist insulin use: with retirement use Chronic kidney disease stage: stage 3 (moderate) Qualified Code(s): E11.22 - Type 2 diabetes mellitus with diabetic chronic kidney disease; N18.3 - Chronic kidney disease, stage 3 (moderate); N18.3 - Chronic kidney disease, stage 3 (moderate) ; 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.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 (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 of insulin; Z79.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 (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 of insulin; Z79.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 (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 of insulin; Z79.4 - [facility] ( 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 of insulin (7) COPD exacerbation Code(s): J44.1 - CHRONIC OBSTRUCTIVE PULMONARY DISEASE W (ACUTE) EXACERBATION Status: Suspected (8) GAVIN (acute kidney injury) Code(s): N17.9 - ACUTE KIDNEY FAILURE, UNSPECIFIED Status: Acute (9) Dyspnea Code(s): R06.00 - DYSPNEA, UNSPECIFIED Status: Acute (10) Anticoagulant long-term use Code(s): Z79.01 - [facility] (CURRENT) USE OF ANTICOAGULANTS Status: Chronic (11) S/P implantation of automatic cardioverter/defibrillator (AICD) Code(s): Z95.810 - PRESENCE OF AUTOMATIC (IMPLANTABLE) CARDIAC DEFIBRILLATOR Status: Chronic - Plan Plan: # CHF exacerbation - IV lasix 40mg BID - AICD in place - Strict i/o - Fluid restriction to 1500mL/day - wean O2 as able - H&P 02/2017 states EF 20-25%, last Echo report from 2014 shows EF 35-40% - need echo before discharge -HF clinic consulted - admit to tele # COPD exacerbation - PO prednisone, levoquin, duoneb scheduled - switched from azithromycin to levoquin - on symbicort at home, has not been using it correctly - Has duonebs at home as well - Spiriva is on home med list, unclear whether or not he has been using this - O2 as above # CAD - continue statin and ASA - troponin .08-> .092 -> .086 -> .069 # Afib - continue warfarin - order coags - patient says he is taking digoxin, dig level is negligible - tele as above # GAVIN vs. CKD - no fluids 2/2 CHF - will trend Cr # DM2 - f/u on A1C - start home Levemir - Moderate SSI - Accucheck q 2 hr - blood sugar > 580 this AM, likely 2/2 steroid - low carb and HH diet # Anemia - stable, chronic. Monitor with morning labs # HLD - home meds # DVT Px - SCD, pt is on warfarin # Code Status - DNR Dispo: plan on home today after echo, pending O2 requirements <Darron Crowley - Last Filed: 08/02/17 08:56> Attending Addendum - Attending Addendum Date/Time: 08/02/17 9911 I personally evaluated the patient and discussed the management with Dr. Corwley on 08/02/17. I agree with the History, Examination, Assessment and Plan documented above with any addition or exceptions noted below. Patient now off of oxygen. Doing well. Will get echo done and then be ready for discharge. <Yissel Ledezma - Last Filed: 08/02/17 12:39>
[2017-08-02] MEDS: ADMIXTURE FEE SC SCH (09:56)
[2017-08-02] MEDS: INSULIN DETEMIR SC SCH (09:56)
[2017-08-02] MEDS: predniSONE 20 MG TAB PO SCH (09:57)
[2017-08-02] MEDS ORDERED: Warfarin Sodium 2 MG TAB PO SCH (17:00)
[2017-08-02] MEDS: Atorvastatin Calcium 40 MG TAB PO SCH (20:40)
[2017-08-03] MEDS: HumaLOG 300 UNITS/3 ML VIAL SC PRN ×2 (00:39→09:43)
[2017-08-03] MEDS: Furosemide 40 MG/4 ML VIAL SLOW IVP SCH (05:23)
[2017-08-03 07:17] VITALS: BP 117/58; TEMP 97.7
[2017-08-03] MEDS: Budesonide 0.5 MG/2 ML NEB INH SCH (08:51)
--- NOTE | 2017-08-03 08:56 | PDOC.FM ---
- Subjective Subjective: This morning patient states he is having no shortness of breath. He is excited to go home today. Denies any issues overnight. - Objective Vital Signs & Weight: Vital Signs (12 hours) Temp Pulse Resp BP BP Pulse Ox 08/03/17 08:51 89 16 93 L 08/03/17 07:22 97.7 F 86 16 117/58 L 92 L 08/03/17 07:16 97.7 F 86 16 117/58 L 92 L 08/03/17 04:00 97.8 F 96 18 143/75 H 94 L 08/03/17 01:21 94 L Weight Weight 108.998 kg I&O: 08/02/17 08/03/17 08/04/17 06:59 06:59 06:59 Intake Total 1448 1444 Output Total 2045 2680 Balance -597 -1236 Result Diagrams: 08/01/17 04:00 08/01/17 04:00 <Darron Crowley - Last Filed: 08/03/17 08:54> - Objective Vital Signs & Weight: Weight Weight 108.998 kg I&O: 08/03/17 08/04/17 08/05/17 06:59 06:59 06:59 Intake Total 1444 Output Total 2680 Balance -1236 Result Diagrams: 08/01/17 04:00 08/01/17 04:00 <Yissel Ledezma - Last Filed: 08/04/17 09:20> Phys Exam - Physical Examination HEENT: PERRLA, moist MMs Neck: no nodes, full ROM Respiratory: no wheezing, clear to auscultation bilateral Cardiovascular: RRR, no significant murmur Gastrointestinal: soft, non-tender, no distention, positive bowel sounds Musculoskeletal: pulses present, edema present +1 edema bilaterally Neurological: non-focal, moves all 4 limbs Psychiatric: normal affect, A&O x 3 Skin: no rash, normal turgor, cap refill <2 seconds <Darron Crowley - Last Filed: 08/03/17 08:54> Dx/Plan (1) Acute exacerbation of CHF (congestive heart failure) Code(s): I50.9 - HEART FAILURE, UNSPECIFIED Status: Acute (2) Afib Code(s): I48.91 - UNSPECIFIED ATRIAL FIBRILLATION Status: Chronic QualifierTitle: Atrial fibrillation type: chronic Qualified Code(s): I48.2 - Chronic atrial fibrillation (3) Anemia Code(s): D64.9 - ANEMIA, UNSPECIFIED Status: Chronic QualifierTitle: Anemia type: unspecified type Qualified Code(s): D64.9 - Anemia, unspecified (4) CAD (coronary artery disease) Code(s): I25.10 - ATHSCL HEART DISEASE OF [place] CORONARY ARTERY W/O ANG PCTRS Status: Chronic QualifierTitle: Coronary Disease-Associated Artery/Lesion type: [place] artery [place] vs. transplanted heart: [place] heart Associated angina: without angina Qualified Code(s): I25.10 - Atherosclerotic heart disease of [place] coronary artery without angina pectoris (5) CKD (chronic kidney disease) stage 3, GFR 30-59 ml/min Status: Chronic (6) DM2 (diabetes mellitus, type 2) Status: Chronic QualifierTitle: Diabetes mellitus complication status: with kidney complications Diabetes mellitus complication detail: with chronic kidney disease Diabetes mellitus half-way insulin use: with half-way use Chronic kidney disease stage: stage 3 (moderate) Qualified Code(s): E11.22 - Type 2 diabetes mellitus with diabetic chronic kidney disease; N18.3 - Chronic kidney disease, stage 3 (moderate); N18.3 - Chronic kidney disease, stage 3 (moderate) ; Z79.4 - snf (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 of insulin; Z79.4 - exterminator termite (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 of insulin; Z79.4 - exterminator termite (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 of insulin; Z79.4 - exterminator termite ( 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 of insulin (7) COPD exacerbation Code(s): J44.1 - CHRONIC OBSTRUCTIVE PULMONARY DISEASE W (ACUTE) EXACERBATION Status: Suspected (8) GAVIN (acute kidney injury) Code(s): N17.9 - ACUTE KIDNEY FAILURE, UNSPECIFIED Status: Acute (9) Dyspnea Code(s): R06.00 - DYSPNEA, UNSPECIFIED Status: Acute (10) Anticoagulant long-term use Code(s): Z79.01 - BANKRUPTCY PARALEGAL (CURRENT) USE OF ANTICOAGULANTS Status: Chronic (11) S/P implantation of automatic cardioverter/defibrillator (AICD) Code(s): Z95.810 - PRESENCE OF AUTOMATIC (IMPLANTABLE) CARDIAC DEFIBRILLATOR Status: Chronic - Plan Plan: # CHF exacerbation - IV lasix 40mg BID - AICD in place - Strict i/o - Fluid restriction to 1500mL/day - wean O2 as able - H&P 02/2017 states EF 20-25%, last Echo report from 2014 shows EF 35-40% - need echo before discharge -HF clinic consulted - admit to tele # COPD exacerbation - PO prednisone, levoquin, duoneb scheduled - switched from azithromycin to levoquin - on symbicort at home, has not been using it correctly - Has duonebs at home as well - Spiriva is on home med list, unclear whether or not he has been using this - O2 as above - RA overnight # CAD - continue statin and ASA - troponin .08-> .092 -> .086 -> .069 # Afib - continue warfarin - order coags - patient says he is taking digoxin, dig level is negligible - tele as above # GAVIN vs. CKD - no fluids 2/2 CHF - will trend Cr # DM2 - f/u on A1C - start home Levemir - Moderate SSI - Accucheck q 2 hr - blood sugar > 580 this AM, likely 2/2 steroid - low carb and HH diet # Anemia - stable, chronic. Monitor with morning labs # HLD - home meds # DVT Px - SCD, pt is on warfarin # Code Status - DNR Dispo: plan on home today <Darron Crowley - Last Filed: 08/03/17 08:54> Attending Addendum - Attending Addendum Date/Time: 08/04/17 0919 I personally evaluated the patient and discussed the management with Dr. Crowley on 08/03/17. I agree with the History, Examination, Assessment and Plan documented above with any addition or exceptions noted below. Patient is back to baseline function. Ambulating, chiqui PO, weaned off O2. Ambulatory oxygen levels were normal. Echo done yesterday showed EF 30-35%. Will hold off on initiating HARSHAD/ARB due to decreased kidney function. Will start low dose cardioselective beta shanti now that his COPD exacerbation has resolved. <Yissel Ledezma - Last Filed: 08/04/17 09:20>
[2017-08-03] MEDS: INSULIN DETEMIR SC SCH (09:42)
[2017-08-03] MEDS: ADMIXTURE FEE SC SCH (09:42)
[2017-08-03] MEDS: predniSONE 20 MG TAB PO SCH (09:43)
[2017-08-03 13:40] LABS: INR-International Normal Ratio 1.3; Prothrombin Time 16.1 SEC (12.0-14.7)
--- NOTE | 2017-08-04 00:03 | DIS-2 ---
DATE OF ADMISSION: 07/31/2017 DATE OF DISCHARGE: 08/03/2017 RESIDENT: Dr. Darron Crowley. ADMITTING ATTENDING: Dr. Alexander Li. DISCHARGE ATTENDING: Dr. Yissel Ledezma. CONSULTATIONS: None. PROCEDURES: None. PRIMARY DIAGNOSIS: Chronic obstructive pulmonary disease exacerbation. SECONDARY DIAGNOSES: Congestive heart failure exacerbation; chest pain, rule out; atrial fibrillatio n; chronic kidney disease; diabetes mellitus, type 2; anemia, hyperlipidemia. DISCHARGE MEDICATIONS: Amiodarone 200 mg daily, aspirin 81 mg daily, Symbicort 1 puff b.i.d., carved ilol 3.125 mg b.i.d., iron b.i.d., Lasix 40 mg a.m. and 20 mg p.m., Levemir 32 units a.m., simvastati n 80 mg, Coumadin 2 mg. HISTORY OF PRESENT ILLNESS AND HOSPITAL COURSE: A 72-year-old male with history of COPD, diabetes me llitus type 2 and CHF, comes in with complaint of shortness of breath and cough. States it was progr essively worsening for the last month, specifically worsened over the last 2 days. Denies fevers, ch ills or sweats, productive cough, 2-pillow orthopnea, no chest pain. States he did notice some swell ing of the left lower extremity. Patient states he has been using his DuoNeb 3-4 times a day for the last few months. Patient states his blood glucose has been uncontrolled at home sometimes as high a s 500. During the course of the stay, the patient received IV Lasix 40 mg b.i.d., which helped his diuresis. By time of discharge, he slept overnight on room air with no hypoxic episodes. Walking test result ed in O2 saturation in the low 90s and thus he did not qualify for home health. Patient is discharge d home on optimized COPD and CHF regimen. DISPOSITION: Stable. DISCHARGE INSTRUCTIONS: 1. Location: Home. 2. Diet: Regular. 3. Activity: As tolerated. 4. Follow up with Dr. Mccormack within 1 week.
--- NOTE | 2017-08-04 13:14 | EKG ---
Test Reason : CHEST PAIN Blood Pressure : / mmHG Vent. Rate : 078 BPM Atrial Rate : 394 BPM P-R Int : 000 ms QRS Dur : 186 ms QT Int : 524 ms P-R-T Axes : 000 002 049 degrees QTc Int : 597 ms Electronic ventricular pacemaker Confirmed by MILO MCKEE MD ([id number]), video effects editor CRISTEL PRESTON ([id number]) on 08/04/2017 1:14:21 PM Referred By: PPURVIS Confirmed By:MILO MCKEE MD
== END 2017-08-03 13:30 | disposition home or self-care (01) ==
LOC: ERS 18:37 → 2NO 22:00 → INTOOBSV 22:00
PROVIDERS: ADMIT Emergency Medicine; ATTEND Emergency Medicine
DX: J44.1 Chronic obstructive pulmonary disease with (acute) exacerbation (principal); I13.0 Hypertensive heart and chronic kidney disease with heart failure and stage 1 through stage 4 chronic kidney disease, or unspecified chronic kidney disease; E11.22 Type 2 diabetes mellitus with diabetic chronic kidney disease; N18.3 Chronic kidney disease, stage 3 (moderate); I50.23 Acute on chronic systolic (congestive) heart failure; N17.9 Acute kidney failure, unspecified; D63.1 Anemia in chronic kidney disease; I48.91 Unspecified atrial fibrillation; E78.5 Hyperlipidemia, unspecified; D64.9 Anemia, unspecified; I25.10 Atherosclerotic heart disease of native coronary artery without angina pectoris; I25.2 Old myocardial infarction; J96.20 Acute and chronic respiratory failure, unspecified whether with hypoxia or hypercapnia; E66.9 Obesity, unspecified; Z68.32 Body mass index [BMI] 32.0-32.9, adult; Z87.891 Personal history of nicotine dependence; Z79.4 Long term (current) use of insulin; Z79.01 Long term (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 of anticoagulants; Z79.82 Long term (current) use of aspirin; Z79.899 Other long term (current) drug therapy; Z95.810 Presence of automatic (implantable) cardiac defibrillator; Z91.018 Allergy to other foods
CPT/HCPCS: 36415; 36416; 71045; 80048; 80053; 80162; 82553; 83880; 84484; 85025; 85610; 93005; 93306; 93798; 94640; 94760; 96374; 96376; 99406; A4216; G0378; J1815; J1940; J7506; J7620; J7626

== ENCOUNTER 2017-10-08 12:58 | Inpatient (IN) | payer MEDICARE, BC ==
[2017-10-08 13:56] LABS: #Eosinphils 0.1 thou/uL (0.0-0.7); #Lymphocytes 0.8 thou/uL (1.20-3.40); #Monocytes 0.6 thou/uL (0.11-0.59); #Neutrophils 10.1 thou/uL (1.40-6.50); %Basophils 0.1 % (0.0-1.0); %Eosinophils 0.5 % (0.0-10.0); %Monocytes 4.8 % (0.0-10.0); %Neutrophils 87.7 % (42.0-75.0); Hemoglobin 8.2 g/dL (14.0-18.0); Mean Corpuscular HGB CONC 33.2 g/dL (32.0-36.0); Mean Corpuscular Hemoglobin 30.8 pg (27.0-31.0); Mean Corpuscular Volume 92.9 fl (80.0-94.0); Mean Platelet Volume 7.2 fL (7.4-10.4); Platelet Count 187 thou/uL (130-400); RBC Distribution Width 14.9 % (11.5-14.5); Red Blood Cell (RBC) Count 2.65 mill/uL (4.70-6.10); White Blood Cell (WBC) Count 11.5 thou/uL (4.8-10.8)
[2017-10-08 14:17] LABS: ALT (SGPT) 8 U/L (8-55); AST (SGOT) 7 U/L (5-34); Albumin 2.7 g/dL (3.4-4.8); Alkaline Phosphatase 70 U/L (40-150); Anion Gap 11 mmol/L (10-20); BUN (Urea Nitrogen) 27 mg/dL (8.4-25.7); Bilirubin, Total 0.7 mg/dL (0.2-1.2); CK (CPK) 73 U/L (30-200); Calc. Creatinine Clearance 0 mL/min (70-130); Calcium 7.4 mg/dL (7.8-10.44); Carbon Dioxide 29 mmol/L (23-31); Chloride 96 mmol/L (98-107); Estimated GFR-MDRD 30; Globulin 1.8 g/dL (2.4-3.5); Glucose 479 mg/dL (83-110); Protein, Total 4.5 g/dL (5.8-8.1); Sodium 133 mmol/L (136-145)
--- NOTE | 2017-10-08 14:19 | RAD ---
UPRIGHT PORTABLE CHEST 1 VIEW: Date: 10/08/17 HISTORY: 72-year-old male with history of shortness of breath. COMPARISON: 07/31/17. FINDINGS: Minimal cardiomegaly. Left ICD. Stable increased markings bilaterally without confluent pneumonia, ov ert edema, or pleural effusion. IMPRESSION: Stable cardiomegaly and left ICD. Atherosclerosis of aorta with ectasia. POS: KIEL
[2017-10-08 14:22] LABS: CKMB 1.6 ng/mL (0-6.6); Troponin I 0.036 ng/mL (< 0.028)
--- NOTE | 2017-10-08 14:47 | PDOC.FPRHP ---
- History of Present Illness Chief Complaint: Dizziness, SOB History of Present Illness: 72 yo male presents for multiple complaints. Patient states that one week ago he began to have lower extremity swelling. He states that his PCP changed his fluid pills around at that time. He states that his leg swelling varied. He also states that yesterday he got up and walked to the bathroom. After he was walking back from the bathroom, he began to feel dizzy and lightheaded. He then states he lost consciousness and went down. While he was on the floor he states he must have hit his legs and feet, but not his head. He also notes while on the floor that his AICD fired. He then felt better. This morning he woke up with pain in his legs, which he thinks is from the fall, and he got a call from his pacemaker company saying that his AICD went off. He then called EMS for transport ED Course: 1L NS bolus - Allergies/Adverse Reactions Allergies Allergy/AdvReac Type Severity Reaction Status Date / Time ham Allergy Unknown Uncoded 07/31/17 23:55 - Home Medications Medication Instructions Recorded Confirmed Type Amiodarone HCl 200 mg PO DAILY 11/26/16 10/08/17 History Aspirin [Aspirin Chewable Tablet] 81 mg PO DAILY 11/26/16 10/08/17 History Carvedilol [Coreg] 3.125 mg PO BID 11/26/16 10/08/17 History Simvastatin 80 mg PO QPM 11/26/16 10/08/17 History Warfarin Sodium [Coumadin] 2 mg PO DAILY 11/26/16 10/08/17 History Ferrous Sulfate [Feosol] 324 mg PO BID 07/31/17 10/08/17 History Insulin Detemir 100 UNITS/ML 32 unit SQ QAM 30 Days #1 ampule 08/02/17 10/08/17 Rx [Levemir] Budesonide-Formoterol [Symbicort 1 puff INH BID 30 Days #1 aer 08/03/17 Rx 80-4.5] Furosemide [Lasix] 40 mg PO BID 10/08/17 10/08/17 History Ipratropium/Albuterol Sulfate 3 ml NEB QID PRN 10/08/17 10/08/17 History [Duoneb] Metolazone 5 mg PO DAILY 10/08/17 10/08/17 History Pantoprazole [Protonix] 40 mg PO DAILY 10/08/17 10/08/17 History - History PMHx: CAD, MD, Cardiomyopathy, A-fib with AICD, DM2, HTN, COPD, HLD, CVA PSHx: Appendectomy, Defibrillator placement, Bilateral cataract surgery FHx: Non-Contributory Social: Patient is current everyday smoker. 1 PPD for 60 years. He denies alcohol or drug use. - Review of Systems General: denies: fever/chills Eyes: denies: eye pain, vision changes ENT: denies: nasal congestion, rhinorrhea Respiratory: reports: shortness of breath. denies: cough, congestion Cardiovascular: denies: chest pain, palpitation Gastrointestinal: denies: nausea, vomiting, diarrhea, constipation Genitourinary: denies: incontinence Skin: denies: rashes Musculoskeletal: denies: pain, tenderness, stiffness, swelling, arthritis/ arthralgias Neurological: reports: syncope. denies: numbness, seizure, weakness Psychological: denies: anxiety, depression - Vital signs BP: 117/73 HR: 82 RR: 22 Tmax: 98.1 Pox: 100% on 2L Wt: 102 kg - Physical Exam Constitutional: awake, alert and oriented HEENT: normocephalic and atraumatic, grossly normal vision, grossly normal hearing, normal nasal mucosa -HEENT: Edentulous and Dry mucous membranes Neck: supple, trachea midline Chest: no-tender to palpation Heart: RRR, normal S1/S2, no murmurs/rubs/gallops, pulses present -Heart: 2+ pitting edema to posterior lower extremity -Lungs: Wheezing with crackles present at bilateral bases Abdomen: soft, non-tender, bowel sounds present, no masses/distention Musculoskeletal: normal structure, normal tone, ROM grossly normal Neurological: no focal deficit, CN II-XII intact Skin: no rash/lesions -Heme/Lymphatic: Multiple ecchymosis present over upper extremity Psychiatric: normal mood and affect, good judgment and insight, intact recent and remote memory FMR H&P: Results - Labs Result Diagrams: 10/08/17 13:39 10/08/17 13:39 Lab results: WBC 11.5 thou/uL (4.8-10.8) H 10/08/17 13:39 Hgb 8.2 g/dL (14.0-18.0) L 10/08/17 13:39 Hct 24.6 % (42.0-52.0) L 10/08/17 13:39 MCV 92.9 fl (80.0-94.0) 10/08/17 13:39 Plt Count 187 thou/uL (130-400) 10/08/17 13:39 Neutrophils % 87.7 % (42.0-75.0) H 10/08/17 13:39 Sodium 133 mmol/L (136-145) L 10/08/17 13:39 Potassium 3.0 mmol/L (3.5-5.1) L 10/08/17 13:39 Chloride 96 mmol/L (98-107) L 10/08/17 13:39 Carbon Dioxide 29 mmol/L (23-31) 10/08/17 13:39 BUN 27 mg/dL (8.4-25.7) H 10/08/17 13:39 Creatinine 2.18 mg/dL (0.6-1.3) H 10/08/17 13:39 Glucose 479 mg/dL (83-110) H 10/08/17 13:39 Calcium 7.4 mg/dL (7.8-10.44) L 10/08/17 13:39 Total Bilirubin 0.7 mg/dL (0.2-1.2) 10/08/17 13:39 AST 7 U/L (5-34) 10/08/17 13:39 ALT 8 U/L (8-55) 10/08/17 13:39 Alkaline Phosphatase 70 U/L (40-150) 10/08/17 13:39 Creatine Kinase 73 U/L (30-200) 10/08/17 13:39 CK-MB (CK-2) 1.6 ng/mL (0-6.6) 10/08/17 13:39 Serum Total Protein 4.5 g/dL (5.8-8.1) L 10/08/17 13:39 Albumin 2.7 g/dL (3.4-4.8) L 10/08/17 13:39 - EKG Interpretation EK lead EKG shows, paced rhythm, Rate (beats per minute): 75, with no ectopics, Other findings include:, 100% pacemaker capture demonstrated, Clinical impression:, non-specific EKG. FMR H&P: A/P - Problem List (1) AICD discharge Current Visit: Yes Status: Acute Code(s): Z45.02 - ENCNTR FOR ADJUST AND MGMT OF AUTOMATIC IMPLNTBL CARD DEFIB (2) Afib Current Visit: No Status: Chronic Priority: Medium Code(s): I48.91 - UNSPECIFIED ATRIAL FIBRILLATION Qualifiers: Atrial fibrillation type: chronic Qualified Code(s): I48.2 - Chronic atrial fibrillation (3) CAD (coronary artery disease) Current Visit: No Status: Chronic Priority: Medium Code(s): I25.10 - ATHSCL HEART DISEASE OF [place] CORONARY ARTERY W/O ANG PCTRS Qualifiers: Coronary Disease-Associated Artery/Lesion type: [place] artery [place] vs. transplanted heart: [place] heart Associated angina: without angina Qualified Code(s): I25.10 - Atherosclerotic heart disease of [place] coronary artery without angina pectoris (4) CKD (chronic kidney disease) stage 3, GFR 30-59 ml/min Current Visit: No Status: Chronic Priority: Medium (5) DM2 (diabetes mellitus, type 2) Current Visit: No Status: Chronic Qualifiers: Diabetes mellitus retirement insulin use: with retirement use Diabetes mellitus complication status: with kidney complications Diabetes mellitus complication detail: with chronic kidney disease Chronic kidney disease stage : stage 3 (moderate) Qualified Code(s): E11.22 - Type 2 diabetes mellitus with diabetic chronic kidney disease; N18.3 - Chronic kidney disease, stage 3 ( moderate); N18.3 - Chronic kidney disease, stage 3 (moderate); Z79.4 - manager terminal (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 of insulin; Z79.4 - senior care (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 of insulin; Z79.4 - senior care (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 of insulin; Z79.4 - senior care (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 of insulin (6) Ischemic cardiomyopathy Current Visit: No Status: Chronic Code(s): I25.5 - ISCHEMIC CARDIOMYOPATHY (7) COPD (chronic obstructive pulmonary disease) Current Visit: Yes Status: Acute (8) Tobacco abuse Current Visit: Yes Status: Acute Code(s): Z72.0 - TOBACCO USE (9) CHF (congestive heart failure) Current Visit: Yes Status: Acute Code(s): I50.9 - HEART FAILURE, UNSPECIFIED (10) Hypokalemia Current Visit: Yes Status: Acute Code(s): E87.6 - HYPOKALEMIA (11) Anemia Current Visit: No Status: Chronic Priority: Medium Code(s): D64.9 - ANEMIA , UNSPECIFIED Qualifiers: Anemia type: unspecified type Qualified Code(s): D64.9 - Anemia, unspecified - Plan (1) AICD discharge - Plan for interrogation of AICD - Initial read shows event of V-tach - Cardiology consulted, appreciate recs (2) Afib - Continue home meds - Continue Coumadin (3) CAD (coronary artery disease) - Continue home meds (4) CKD (chronic kidney disease) stage 3, GFR 30-59 ml/min - Will start gentle IVF - Monitor Creatinine (5) DM2 (diabetes mellitus, type 2) - Will check HgbA1C - Will give 10 u regular insulin - Continue home regimen - Accuchecks - SSI (6) Ischemic cardiomyopathy - Continue home meds (7) COPD (chronic obstructive pulmonary disease) - Duonebs - Continue home meds (8) Tobacco abuse - Counseled on cessation - Nicotine patch if needed (9) CHF (congestive heart failure) - Monitor fluid status closely - Continue home meds (10) Hypokalemia - Will replenish - Monitor with BMP (11) Anemia - Will check FOBT, iron studies - Hgb fluctuated on previous admissions - No other signs or symptoms of bleeding CODE STATUS: DO NOT INTUBATE Disposition: Stable, will admit to Telemetry services FMR H&P: Upper Level - Pertinent history 72 yo M with PMH significant for CHFrEF s/p pacemaker and CAD presenting with dizziness. States his defibrillator went off yesterday and since then he has been feeling dizzy and lightheaded ever since. Had metolazone added to medication regimen by PCP recently due to appearing clinically fluid overloaded , in addition to lasix BID. Denies feeling any palpitations prior to this event. Denies any F/Ch, N/V, abd pain, CP, SOB, headaches, vision changes. - Pertinent findings PE: T: 98.1 P: 82 BP: 117/73 RR: 22 95% RA Gen: [place] male in NAD HEENT: PERRL, EOMI, dry MM, no lymphadenopathy or thyromegaly CV: RRR no murmurs, distal pulses intact Pulm: CTAB, no wheezes or rhonchi Abd: soft, NT/ND, BS present, no masses or distention Ext: mild pitting edema of posterior calf MSK: [place] well, no joint or muscle pain or swelling Neuro: CN 2-12 intact, normal sensation Psych: A&O x3, appropriate in conversation - Plan Date/Time: 10/08/17 1446 72 yo M presenting after pacer shock 1) AICD discharge: Will interrogate pacemaker and consult his Hand Binder Stripper, Dr. Arredondo. 2) CHFrEF: s/p pacemaker placement, plan as above. 3) Chronic A. fib: Continue warfarin, rate control. 4) Anemia: Suspect this is chronic based on previous labs, likely 2/2 chronic disease and decreased renal function. 5) CKDsIII: At baseline despite increased diuretic therapy 6) DM2: Hyperglycemic currently, continue home medications, SSI, accuchecks 7) Tobacco abuse: [facility] on cessation I, [Alberto Maddox], have evaluated this patient and agree with findings/plan as outlined by director internal audit resident. Pertinent changes/additions are listed here. Attending Addendum - Attending Addendum Date/Time: 10/08/17 1625 I personally evaluated the patient and discussed the management with Dr. Landon /Tan. I agree with the History, Examination, Assessment and Plan documented above with any addition or exceptions noted below. Patient with history of CAD, HRrEF last EF 35%, Afib, T2DM presents after AICD discharge yesterday. Patient reports seeing his PCP a week ago who increased diuresis due to persistent LE edema. He was started on Lasix BID as well as Metolazone daily. Patient reports he was feeling well, but yesterday was walking back from his bathroom, when he apparently syncopized. He only remembers laying on the floor, and feeling normal at that time. He received a phone call stating that his AICD had discharged. Patient overall felt well until this morning when he developed pre-syncopal symptoms as well as extremely dry mouth and throat. Other than leg pain from his apparent fall yesterday, he report no other complaints. AICD interrogated in the ER which shows that patient had a ~35 second run of Vtach s/p AICD discharge. He otherwise has no aberrancy. Exam reveals minimal LE edema, V paced rhythm, Lungs CTAB. Vitals overall stable. His labs are pertinent for mild elevation of WBC with L shift, normocytic anemia that is chronic but acutely worse since his previous admission , hypokalemia, baseline chronic renal disease, and elevated blood sugar. XR shows no acute process. Patient will be observed on telemetry overnight. Due to occurrence and resolution of potentially fatal dysrhythmia, will consult his regional clinical research associate for review of data. Will gently rehydrate patient as he is clinically hypovolemic and this could be part of his symptomology. We will do a basic evaluation of this worsening anemia. Potassium will be repleted, and we will work to get his blood sugars under control. Estimate hospitalization of 1- 2 days depending on Cardiology recommendations.
[2017-10-08] MEDS ORDERED: Adacel (T-DAP) 0.5 ML VIAL ONE (15:48)
[2017-10-08 16:36] LABS: Iron 53 ug/dL (65-175); Iron Binding Capacity, Total 261 mcg/dL (261-462)
[2017-10-08 17:13] LABS: Troponin I 0.042 ng/mL (< 0.028)
[2017-10-08] MEDS ORDERED: Insulin Regular 300 UNITS/3 ML VIAL SC SCH (17:30)
[2017-10-08 17:51] VITALS: BMI 32.1
[2017-10-08] MEDS ORDERED: Dextrose 5% in Water 1,000 ML IV PRN (17:53)
[2017-10-08] MEDS ORDERED: Dextrose 50% Abboject 50 ML SYRINGE SLOW IVP PRN (17:53)
[2017-10-08 18:19] LABS: Hemoglobin A1c 9.5 % (4.0-6.0)
[2017-10-08 18:37] LABS: Prothrombin Time 57.5 SEC (12.0-14.7)
[2017-10-08 18:39] LABS: CKMB 2.1 ng/mL (0-6.6); Troponin I 0.044 ng/mL (< 0.028)
[2017-10-08 18:42] LABS: INR-International Normal Ratio 6.1
--- NOTE | 2017-10-08 19:06 | CON ---
DATE OF CONSULTATION: 10/08/2017 DATE OF CONSULTATION: Recent ICD discharge. HISTORY OF PRESENT ILLNESS: This is a 72-year-old gentleman, who was seen and evaluated in the past. He has a history of CAD, status post stent placement. This was in 2008. He has had ischemic cardi omyopathy and has an ICD in place. He states he had a syncopal episode. He states his chest felt so re. He felt he was cardioverted. He presented to the emergency room. He was interrogated and in fa ct did have ICD discharge. It was difficult to ascertain whether this is atrial fibrillation with ra pid ventricular response or a true ventricular event. He is currently asymptomatic. He is on long-term amiodarone therapy for atrial fibrillation. PAST MEDICAL HISTORY: Ischemic cardiomyopathy, atrial fibrillation, hyperlipidemia, diabetes mellitu s, hypertension, ventricular tachycardia, ventricular fibrillation, tonsillectomy, previous AR. HOME MEDICATIONS: Include Coumadin, Zocor, Lasix, NovoLog, Levemir, Symbicort, pantoprazole, iron, a miodarone, digoxin, Coreg and aspirin. REVIEW OF SYSTEMS: Ten-point review of systems is reviewed and as above, otherwise negative. PHYSICAL EXAMINATION: GENERAL: Patient is a pleasant male who is in no acute distress. The patient appears his stated age. VITAL SIGNS: Blood pressure 114/78, pulse 79, temperature 97.8. NEUROLOGIC: The patient is alert and oriented times 3 with no focal neurologic deficits. HEENT: Sclerae without icterus. Mouth has moist mucous membranes with normal pallor. NECK: No JVD. Carotid upstroke brisk. No bruits bilaterally. LUNGS: Clear to auscultation with unlabored respirations. BACK: No scoliosis or kyphosis. CARDIAC: Regular rate and rhythm with normal S1 and S2. No S3 or S4 noted. No significant rubs, mu rmurs, thrills, or gallops noted throughout the precordium. PMI is not displaced. There is no ld ternal heave. ABDOMEN: Soft, nontender, nondistended. No peritoneal signs present. No hepatosplenomegaly. No ab normal striae. EXTREMITIES: 2+ femoral and 2+ dorsalis pedis pulses. No cyanosis, clubbing, or edema. SKIN: No gross abnormalities. PERTINENT LABS: Hemoglobin 8.2, creatinine 2.1, sodium 133, potassium 3.0. Peak troponin is 0.042. IMPRESSION: 1. Implantable cardioverter/defibrillator discharge. 2. Atrial fibrillation with rapid ventricular response versus ventricular tachycardia. 3. Ischemic cardiomyopathy. 4. Chronic atrial fibrillation. RECOMMENDATIONS: At this point, Mr. Soto is on amiodarone therapy. May consider reloading amiodaron e therapy versus sotalol, although sotalol may be relative contraindications due to creatinine of 2.1 . I will consult with EP in the morning for further recommendations. His last stress study performe d in 2013 showing a scar present in the septum and inferior wall with LVEF of 29%.
[2017-10-08] MEDS: Mometasone/Formoterol 120 PUFF INHALER INH SCH (19:15)
[2017-10-08 21:25] LABS: CKMB 2.3 ng/mL (0-6.6); Troponin I 0.027 ng/mL (< 0.028)
[2017-10-08] MEDS ORDERED: HumaLOG 300 UNITS/3 ML VIAL SC SCH (21:30)
[2017-10-08] MEDS: HumaLOG 300 UNITS/3 ML VIAL SC PRN (21:48)
[2017-10-08] MEDS: Acetaminophen 325 MG TAB PO PRN (21:48)
[2017-10-08] MEDS: Simvastatin 40 MG TAB PO SCH (21:49)
[2017-10-08] MEDS: Carvedilol 3.125 MG TAB PO SCH (21:49)
[2017-10-08] MEDS: Ferrous Sulfate 325 MG TAB PO SCH (21:49)
[2017-10-08 23:42] LABS: Bilirubin Negative (Negative); Blood, Urine Negative (Negative); Clarity CLEAR (Clear); Glucose, Urine (Dipstick) >=1000 mg/dL (Negative); Leukocyte Negative (Negative); Nitrite Negative (Negative); Protein, Urine (Dipstick) Negative (Neg-Trace); Specific Gravity, Urine 1.015 (1.002-1.036); Urobilinogen 0.2 mg/dL (0.2-1.0)
[2017-10-08 23:44] LABS: Bacteria/HPF None Seen HPF (None Seen); Hyaline Casts/LPF 0-3 HYALINE CAST LPF (0-3 Hyaline); RBC/HPF 0-3 HPF (0-3); Squamous Epithelial None Seen HPF (0-3); WBC/HPF None Seen HPF (0-3)
[2017-10-09] MEDS ORDERED: Insulin Regular 300 UNITS/3 ML VIAL SC SCH (01:30)
[2017-10-09] MEDS ORDERED: traMADol HCl 50 MG TAB PO SCH ×2 (01:30→21:00)
[2017-10-09 05:07] LABS: #Lymphocytes 0.8 thou/uL (1.20-3.40); #Monocytes 0.5 thou/uL (0.11-0.59); #Neutrophils 11.6 thou/uL (1.40-6.50); %Eosinophils 0.1 % (0.0-10.0); %Lymphocytes 6.5 % (21.0-51.0); %Monocytes 4.2 % (0.0-10.0); %Neutrophils 89.3 % (42.0-75.0); Mean Corpuscular HGB CONC 32.6 g/dL (32.0-36.0); Mean Corpuscular Hemoglobin 29.9 pg (27.0-31.0); Mean Corpuscular Volume 91.7 fl (80.0-94.0); Mean Platelet Volume 7.3 fL (7.4-10.4); Platelet Count 186 thou/uL (130-400); RBC Distribution Width 14.8 % (11.5-14.5); Red Blood Cell (RBC) Count 2.66 mill/uL (4.70-6.10)
[2017-10-09 05:22] LABS: Anion Gap 12 mmol/L (10-20); BUN (Urea Nitrogen) 32 mg/dL (8.4-25.7); Calc. Creatinine Clearance 45 mL/min (70-130); Calcium 8.1 mg/dL (7.8-10.44); Carbon Dioxide 29 mmol/L (23-31); Cardiac Risk 2.5 (Less than 4.5); Chloride 96 mmol/L (98-107); Cholesterol 89 mg/dl (< 200 Desired); Estimated GFR-MDRD 30; Glucose 289 mg/dL (83-110); HDL Cholesterol 35 mg/dL (>60 Neg Risk); LDL Cholesterol, Calculated 40 mg/dL; Potassium 4.1 mmol/L (3.5-5.1); Sodium 133 mmol/L (136-145); Triglycerides 72 mg/dL (Less than 150)
--- NOTE | 2017-10-09 06:13 | PDOC.FM ---
- Subjective Subjective: Patient had a good night. He states he feels much better after the pain medication yesterday. He denies any new chest pain, SOB, palpitations, fevers, chills, n/v/d. He states that he hopes nothing like that helps again. No other acute events or complaints this AM. - Objective Vital Signs & Weight: Vital Signs (12 hours) Temp Pulse Resp BP Pulse Ox 10/09/17 04:00 98.1 F 90 20 100/57 L 93 L 10/09/17 02:28 86 18 100 10/08/17 22:31 78 16 97 10/08/17 21:35 98.1 F 80 18 122/54 L 95 10/08/17 19:14 83 16 98 Weight Weight 107.643 kg I&O: 10/07/17 10/08/17 10/09/17 06:59 06:59 06:59 Intake Total 2100 Output Total 625 Balance 1475 Result Diagrams: 10/09/17 04:24 10/09/17 04:24 <Rodo Landon - Yuniel Filed: 10/09/17 07:42> - Objective Vital Signs & Weight: Vital Signs (12 hours) Temp Pulse Resp BP Pulse Ox 10/09/17 07:13 90 14 10/09/17 04:00 98.1 F 90 20 100/57 L 93 L 10/09/17 02:28 86 18 100 10/08/17 22:31 78 16 97 Weight Admit Weight 107.53 kg Weight 107.643 kg I&O: 10/08/17 10/09/17 10/10/17 06:59 06:59 06:59 Intake Total 2100 Output Total 625 Balance 1475 Result Diagrams: 10/09/17 04:24 10/09/17 04:24 <Mikel Morgan - Last Filed: 10/09/17 10:21> Phys Exam - Physical Examination HEENT: moist MMs Respiratory: wheezing present Cardiovascular: RRR, no significant murmur Gastrointestinal: soft, non-tender, no distention, positive bowel sounds Musculoskeletal: no edema, pulses present Neurological: non-focal, moves all 4 limbs Lymphatic: no nodes Psychiatric: normal affect, A&O x 3 Skin: no rash Deviation from normal: multiple ecchymosis over upper extremities and inner thighs. <Rodo Landon Filed: 10/09/17 07:42> Dx/Plan (1) AICD discharge Code(s): Z45.02 - ENCNTR FOR ADJUST AND MGMT OF AUTOMATIC IMPLNTBL CARD DEFIB Status: Acute (2) Afib Code(s): I48.91 - UNSPECIFIED ATRIAL FIBRILLATION Status: Chronic QualifierTitle: Atrial fibrillation type: chronic Qualified Code(s): I48.2 - Chronic atrial fibrillation (3) CAD (coronary artery disease) Code(s): I25.10 - ATHSCL HEART DISEASE OF [place] CORONARY ARTERY W/O ANG PCTRS Status: Chronic QualifierTitle: Coronary Disease-Associated Artery/Lesion type: [place] artery [place] vs. transplanted heart: [place] heart Associated angina: without angina Qualified Code(s): I25.10 - Atherosclerotic heart disease of [place] coronary artery without angina pectoris (4) CKD (chronic kidney disease) stage 3, GFR 30-59 ml/min Status: Chronic (5) DM2 (diabetes mellitus, type 2) Status: Chronic QualifierTitle: Diabetes mellitus alf insulin use: with predatory animal exterminator use Diabetes mellitus complication status: with kidney complications Diabetes mellitus complication detail: with chronic kidney disease Chronic kidney disease stage: stage 3 (moderate) Qualified Code(s): E11.22 - Type 2 diabetes mellitus with diabetic chronic kidney disease; N18.3 - Chronic kidney disease, stage 3 (moderate); N18.3 - Chronic kidney disease, stage 3 (moderate) ; Z79.4 - retirement (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 of insulin; Z79.4 - retirement (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 of insulin; Z79.4 - equipment operator intermodal yard (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 of insulin; Z79.4 - equipment operator intermodal yard ( 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 of insulin (6) Ischemic cardiomyopathy Code(s): I25.5 - ISCHEMIC CARDIOMYOPATHY Status: Chronic (7) COPD (chronic obstructive pulmonary disease) Status: Acute (8) Tobacco abuse Code(s): Z72.0 - TOBACCO USE Status: Acute (9) CHF (congestive heart failure) Code(s): I50.9 - HEART FAILURE, UNSPECIFIED Status: Acute (10) Hypokalemia Code(s): E87.6 - HYPOKALEMIA Status: Acute (11) Anemia Code(s): D64.9 - ANEMIA, UNSPECIFIED Status: Chronic QualifierTitle: Anemia type: unspecified type Qualified Code(s): D64.9 - Anemia, unspecified - Plan Plan: (1) AICD discharge - Plan for interrogation of AICD - Initial read shows event of V-tach - Cardiology consulted, appreciate recs - Dr. Arredondo has consulted EP, will await their recs (2) Afib - Continue home meds - Currently V-paced - INR 6.1 yesterday, will hold Coumadin for now (3) CAD (coronary artery disease) - Continue home meds (4) CKD (chronic kidney disease) stage 3, GFR 30-59 ml/min - Will start gentle IVF - Monitor Creatinine (5) DM2 (diabetes mellitus, type 2) - HgbA1C 9.5 - Continue home regimen, may need to titrate up as outpatient - Accuchecks - SSI (6) Ischemic cardiomyopathy - Continue home meds (7) COPD (chronic obstructive pulmonary disease) - Duonebs - Continue home meds (8) Tobacco abuse - Counseled on cessation - Nicotine patch if needed (9) CHF (congestive heart failure) - Monitor fluid status closely - Continue home meds (10) Hypokalemia, resolved - Will replenish - Monitor with BMP (11) Anemia - Likely due to CKD - Hgb fluctuated on previous admissions - Await FOBT results - No other signs or symptoms of bleeding <Rodo Landon - Last Filed: 10/09/17 07:42> (1) AICD discharge Code(s): Z45.02 - ENCNTR FOR ADJUST AND MGMT OF AUTOMATIC IMPLNTBL CARD DEFIB Status: Acute (2) Afib Code(s): I48.91 - UNSPECIFIED ATRIAL FIBRILLATION Status: Chronic Qualifiers: Atrial fibrillation type: chronic Qualified Code(s): I48.2 - Chronic atrial fibrillation (3) CAD (coronary artery disease) Code(s): I25.10 - ATHSCL HEART DISEASE OF [place] CORONARY ARTERY W/O ANG PCTRS Status: Chronic Qualifiers: Coronary Disease-Associated Artery/Lesion type: [place] artery [place] vs. transplanted heart: [place] heart Associated angina: without angina Qualified Code(s): I25.10 - Atherosclerotic heart disease of [place] coronary artery without angina pectoris (4) CKD (chronic kidney disease) stage 3, GFR 30-59 ml/min Status: Chronic (5) DM2 (diabetes mellitus, type 2) Status: Chronic Qualifiers: Diabetes mellitus predatory animal exterminator insulin use: with alf use Diabetes mellitus complication status: with kidney complications Diabetes mellitus complication detail: with chronic kidney disease Chronic kidney disease stage : stage 3 (moderate) Qualified Code(s): E11.22 - Type 2 diabetes mellitus with diabetic chronic kidney disease; N18.3 - Chronic kidney disease, stage 3 ( moderate); N18.3 - Chronic kidney disease, stage 3 (moderate); Z79.4 - equipment operator intermodal yard (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 of insulin; Z79.4 - retirement (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 of insulin; Z79.4 - equipment operator intermodal yard (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 of insulin; Z79.4 - equipment operator intermodal yard (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 of insulin (6) Ischemic cardiomyopathy Code(s): I25.5 - ISCHEMIC CARDIOMYOPATHY Status: Chronic (7) COPD (chronic obstructive pulmonary disease) Status: Acute (8) Tobacco abuse Code(s): Z72.0 - TOBACCO USE Status: Acute (9) CHF (congestive heart failure) Code(s): I50.9 - HEART FAILURE, UNSPECIFIED Status: Acute (10) Hypokalemia Code(s): E87.6 - HYPOKALEMIA Status: Acute (11) Anemia Code(s): D64.9 - ANEMIA, UNSPECIFIED Status: Chronic Qualifiers: Anemia type: unspecified type Qualified Code(s): D64.9 - Anemia, unspecified <Mikel Morgan - Last Filed: 10/09/17 10:21> Attending Addendum - Attending Addendum Date/Time: 10/09/17 1020 I personally evaluated the patient and discussed the management with Dr. Landon. I agree with the History, Examination, Assessment and Plan documented above with any addition or exceptions noted below. Patient reports feeling improved this morning. No further episodes of AICD firing. Cardiology has evaluated the patient and has consulted EP to further evaluate. His INR has been found to be supratherapeutic. No current bleeding and no indication for urgent correction, holding warfarin. He continues to have stable decrease in his Hgb over previous, and so anemia workup in progress. Will increase insulin regimen to obtain better glycemic control. <Mikel Morgan - Last Filed: 10/09/17 10:21>
[2017-10-09] MEDS: Acetaminophen 325 MG TAB PO PRN (06:28)
[2017-10-09] MEDS: Mometasone/Formoterol 120 PUFF INHALER INH SCH ×2 (07:13→19:50)
[2017-10-09] MEDS ORDERED: ADMIXTURE FEE SC SCH (09:00)
[2017-10-09] MEDS ORDERED: INSULIN DETEMIR SC SCH (09:00)
[2017-10-09] MEDS: Amiodarone 200 MG TAB PO SCH (09:23)
[2017-10-09] MEDS: Carvedilol 3.125 MG TAB PO SCH ×2 (09:23→20:17)
[2017-10-09] MEDS: Ferrous Sulfate 325 MG TAB PO SCH ×2 (09:23→20:17)
[2017-10-09] MEDS: HumaLOG 300 UNITS/3 ML VIAL SC PRN ×4 (09:25→21:02)
--- NOTE | 2017-10-09 14:12 | PDOC.CTH ---
Cardiology Progress Note - Subjective Patient without complaint. Says that EP came by and planning procedure tomorrow. - Objective Vital Signs Temp Pulse Resp BP BP Pulse Ox 10/09/17 12:10 96.8 F L 91 18 111/68 97 10/09/17 10:58 79 15 97 10/09/17 09:20 98.2 F 84 16 123/58 L 95 10/09/17 07:13 90 14 10/09/17 04:00 98.1 F 90 20 100/57 L 93 L 10/09/17 02:28 86 18 100 Admit Weight 237 lb 1 oz Weight 237 lb 5 oz 10/08/17 10/09/17 10/10/17 06:59 06:59 06:59 Intake Total 2100 Output Total 625 Balance 1475 - Physical Examination General/Neuro: alert & oriented x3 Lungs: CTA Heart: RRR Abdomen: NT/ND Extremities: other: (left foot bandaged; extensive bruising to extremities.) - Telemetry Telemetry Rhythm: V-pacing w/underlying AF - Labs Result Diagrams: 10/09/17 04:24 10/09/17 04:24 Troponin/CKMB CK-MB (CK-2) 2.3 ng/mL (0-6.6) 10/08/17 20:54 Troponin I 0.027 ng/mL (< 0.028) 10/08/17 20:54 - Assessment/Plan 1. ICD discharge - secondary to AF with RVR most-likely. EP note not available, but based on patient statement it sounds like plan for AVJ-RFA. Will continue to follow. 2. Chronic AF - on coumadin. Held recently due to supratherapeutic INR. May benefit from NOAC if labile INR. Notes say previously on Amio for AF. Will defer to EP if to continue for ventricular arrhythmias or stop given chronic AF. 3. 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 Uncontrolled DM
[2017-10-09] MEDS ORDERED: Warfarin Sodium 2 MG TAB PO SCH (17:00)
--- NOTE | 2017-10-09 18:40 | CON ---
DATE OF CONSULTATION: 10/09/2017 DATE OF ADMISSION: 10/08/2017 This is Mckenzie Kebede, nurse practitioner, dictating for Dr. Ryan Andino. REFERRING PHYSICIAN: Cristian Arredondo M.D. REASON FOR CONSULTATION: ICD shock and atrial arrhythmias. HISTORY OF PRESENT ILLNESS: Mr. Soto is a 72-year-old gentleman with a history of ischemic cardiomyo mami and inclusion of an ICD. He had a recent syncopal episode and ICD discharge. He had called 91 1 and at that time, it was determined he was stable and he stayed home; however, the following mornin g, he said he continued to feel very poorly. His legs hurt and he had dizziness and he once again ca lled 911 at which time he was brought to the emergency room for further medical evaluation. He has a history of coronary artery disease with prior stent placement and has multiple admissions for decomp ensated heart failure in the past year. He is well known to our [facility] for his history of ventricular tachycardia, ventricular fib rillation as well as his atrial arrhythmias. He is on chronic detention amiodarone therapy given his ventricular arrhythmias. He has chronic atrial fibrillation and AV node ablation has been discussed with him in the past given his poor rate control and recurrent heart failure exacerbations seen in co njunction with his atrial arrhythmias and poor rate control. Currently, he is resting in bed. He do es report some lingering shortness of breath, fatigue, and activity intolerance. He denies any heart racing, palpitations, chest pain, pressure, or additional syncopal episodes since the day before he was admitted. He is currently asymptomatic. REVIEW OF SYSTEMS: A 12-point review of systems was conducted and is negative except that listed abo ve in the HPI. PAST MEDICAL HISTORY: 1. Ventricular tachycardia and ventricular fibrillation, well suppressed on long-term amiodarone. 2. Longstanding persistent atrial fibrillation with poor rate control. 3. Paroxysmal complete heart block. 4. Ischemic cardiomyopathy and NYHA functional class 3. 5. Hypertension. 6. Dyslipidemia. 7. Inclusion of a biventricular ICD. 8. PVCs. 9. Warfarin for CVA prophylaxis. HOME MEDICATIONS LIST: Coumadin as directed, amiodarone 200 mg daily, carvedilol 3.125 mg b.i.d., as pirin 81 mg daily, Levemir 26 units daily, simvastatin 80 mg daily, furosemide 40 mg daily, ferrous s ulfate 325 mg daily, pantoprazole 40 mg daily, doxycycline 100 mg b.i.d., Pulmicort 2 puffs b.i.d., a nd prednisone 5 mg daily. ALLERGIES: No known drug allergies. PHYSICAL EXAMINATION: VITAL SIGNS: Most recent vital signs, 96.8, heart rate 105, blood pressure 111/68, respirations 16, oxygen saturation 97% on 2 liters via nasal cannula. GENERAL: This is a chronically ill-appearing elderly male in no acute distress. He is alert and cali ented. HEENT: His speech is clear and his affect is appropriate. NEUROLOGIC: Grossly intact and nonfocal and without deficit. Sclerae are anicteric. EOMs are intac t. His oral mucosa is moist and pink. NECK: Supple, without jugular venous distention. Carotids are without bruit and the thyroid is nonp alpable. LUNGS: There are mild bibasilar crackles. Respirations are even and unlabored. Positive orthopnea. No wheezes or rhonchi appreciated. ABDOMEN: Soft and nontender without palpable masses and positive bowel sounds noted throughout. Hep atojugular reflux is positive. EXTREMITIES: Warm and dry to touch without clubbing, cyanosis or edema. LABORATORY DATA: WBC 13.0, hemoglobin 8, hematocrit 24.4. INR on 10/08/2017 is 6.1. Chemistry on 0 10/09/2017, sodium 133, potassium 4.1, chloride 96, carbon dioxide 29, BUN is 32, creatinine is 2.18. Chest x-ray on 10/08/2017 reveals minimal cardiomegaly, left ICD is stable, increased markings bilat erally without confluent pneumonia, overt edema, or pleural effusion. Stable image. Device check, interrogation reveals a [employer]tronic Viva Quad XT SAL[place] TROLL FISHER-D implant is 07/30/2015, battery brenda gevity is estimated at 14 months. Lead impedances are stable. RV capture threshold is elevated at 3 .0 volts at 1.5 milliseconds. P-sensing 2.3, R sensing greater than 20. Current mode is DDDR 70-130 , longstanding chronic atrial fibrillation, burden is 99.9%, one episode of ventricular tachycardia w hich accelerated to ventricular fibrillation and resulted in delivered shock successfully terminating the arrhythmia, total V paced 71.1% (suboptimal). AP less than 1% (chronic atrial fibrillation), fa irly rapid battery depletion, possibly due to the elevated RV threshold. Suboptimal ventricular paci ng in the presence of chronic atrial fibrillation with poor rate control and also PVCs. IMPRESSION: 1. History of ventricular tachycardia and ventricular fibrillation with recent episode successfully treated and terminated by ICD shock. 2. Chronic congestive heart failure, currently decompensated. NYHA functional class 3. 3. Chronic atrial fibrillation with suboptimal rate control contributing to the suboptimal ventricul ar pacing currently at 71%. 4. Inclusion of a biventricular ICD with accelerated battery depletion, likely due to elevated RV th reshold. 5. Warfarin for stroke prophylaxis, supratherapeutic INR currently 6.1 with warfarin being held. RECOMMENDATIONS: 1. Today we discussed AV node ablation with Mr. Soto again. This has been discussed with him in [facility] in the past and previously has chosen medical management over ablation. However, we find that he continues to have heart failure exacerbations and suboptimal LV pacing and strongly encourage AV nod e ablation. Patient is agreeable to undergo ablation well while hospitalized; however, at this time we will need to wait until his INRs are within therapeutic range between 2 and 3. This will also all ow some time for additional diuresis. His OptiVol fluid index is trending up and he does show signs of fluid overload. Ablation will be scheduled, possibly on if INR is stable and within opti mal range. 2. Chronic long-term amiodarone therapy for ventricular arrhythmia suppression. Previously adequate ; however, with recent VT/VF episode requiring ICD to terminate the arrhythmia. 3. Inclusion of SALMON TROLL FISHER ICD with suboptimal LV pacing. The AV node ablation would allow for improved LV pacing and therefore allow the patient to receive maximal benefit from cardiac resynchronization the rapies. Thank you for allowing us to participate in the care of this patient.
[2017-10-09 19:28] LABS: PTT 73.2 SEC (22.9-36.1)
[2017-10-09 19:31] LABS: Prothrombin Time 55.4 SEC (12.0-14.7)
[2017-10-09 19:34] LABS: INR-International Normal Ratio 5.8
[2017-10-09] MEDS: Simvastatin 40 MG TAB PO SCH (20:17)
[2017-10-09] MEDS ORDERED: Insulin Glargine 20 UNITS in Pre-Filled Syringe 1 EACH SC SCH (21:00)
[2017-10-09] MEDS ORDERED: Insulin Detemir 100 UNITS/ML 20 UNITS in Pre-Filled Syringe 1 EACH SC SCH (21:00)
[2017-10-10 05:21] LABS: PTT 49.7 SEC (22.9-36.1); Prothrombin Time 45.7 SEC (12.0-14.7)
[2017-10-10 05:32] LABS: INR-International Normal Ratio 4.6
[2017-10-10] MEDS ORDERED: Insulin Regular 300 UNITS/3 ML VIAL SC PRN (06:13)
--- NOTE | 2017-10-10 06:18 | PDOC.FM ---
- Subjective Subjective: Patient had a good night. He complains of some pain from his fall. He denies SOB. He saw Dr. Andino yesterday and is in agreement with an ablation later this week. No n/v/d, fevers, or chills. No other complaints today. - Objective Vital Signs & Weight: Vital Signs (12 hours) Temp Pulse Resp BP Pulse Ox 10/10/17 04:00 98.0 F 72 20 108/61 100 10/10/17 00:32 95 16 96 10/09/17 22:33 84 12 10/09/17 19:35 98.0 F 96 18 100/58 L 93 L Weight Admit Weight 107.53 kg Weight 107.303 kg I&O: 10/08/17 10/09/17 10/10/17 06:59 06:59 06:59 Intake Total 2100 720 Output Total 625 650 Balance 1475 70 Result Diagrams: 10/09/17 04:24 10/09/17 04:24 <Rodo Landon - Last Filed: 10/10/17 08:10> - Objective Vital Signs & Weight: Vital Signs (12 hours) Temp Pulse Resp BP Pulse Ox 10/10/17 10:19 82 16 97 10/10/17 07:28 100 10/10/17 07:25 85 16 100 10/10/17 04:00 98.0 F 72 20 108/61 100 10/10/17 00:32 95 16 96 Weight Admit Weight 107.53 kg Weight 107.303 kg I&O: 10/09/17 10/10/17 10/11/17 06:59 06:59 06:59 Intake Total 2100 1200 Output Total 625 950 Balance 1475 250 Result Diagrams: 10/09/17 04:24 10/09/17 04:24 <Mikel Morgan - Last Filed: 10/10/17 10:56> Phys Exam - Physical Examination HEENT: moist MMs Neck: no nodes Respiratory: wheezing present Cardiovascular: RRR, no significant murmur Gastrointestinal: soft, non-tender, no distention, positive bowel sounds Musculoskeletal: edema present Multiple ecchymosis present bilateral upper and lower extremities Neurological: non-focal, moves all 4 limbs Lymphatic: no nodes Psychiatric: normal affect, A&O x 3 <Rodo Landon - Last Filed: 10/10/17 08:10> Dx/Plan (1) AICD discharge Code(s): Z45.02 - ENCNTR FOR ADJUST AND MGMT OF AUTOMATIC IMPLNTBL CARD DEFIB Status: Acute (2) Afib Code(s): I48.91 - UNSPECIFIED ATRIAL FIBRILLATION Status: Chronic QualifierTitle: Atrial fibrillation type: chronic Qualified Code(s): I48.2 - Chronic atrial fibrillation (3) CAD (coronary artery disease) Code(s): I25.10 - ATHSCL HEART DISEASE OF [place] CORONARY ARTERY W/O ANG PCTRS Status: Chronic QualifierTitle: Coronary Disease-Associated Artery/Lesion type: [place] artery [place] vs. transplanted heart: [place] heart Associated angina: without angina Qualified Code(s): I25.10 - Atherosclerotic heart disease of [place] coronary artery without angina pectoris (4) CKD (chronic kidney disease) stage 3, GFR 30-59 ml/min Status: Chronic (5) DM2 (diabetes mellitus, type 2) Status: Chronic QualifierTitle: Diabetes mellitus air conditioning specialist insulin use: with air conditioning specialist use Diabetes mellitus complication status: with kidney complications Diabetes mellitus complication detail: with chronic kidney disease Chronic kidney disease stage: stage 3 (moderate) Qualified Code(s): E11.22 - Type 2 diabetes mellitus with diabetic chronic kidney disease; N18.3 - Chronic kidney disease, stage 3 (moderate); N18.3 - Chronic kidney disease, stage 3 (moderate) ; Z79.4 - alf (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 of insulin; Z79.4 - alf (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 of insulin; Z79.4 - alf (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 of insulin; Z79.4 - alf ( 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 of insulin (6) Ischemic cardiomyopathy Code(s): I25.5 - ISCHEMIC CARDIOMYOPATHY Status: Chronic (7) COPD (chronic obstructive pulmonary disease) Status: Acute (8) Tobacco abuse Code(s): Z72.0 - TOBACCO USE Status: Acute (9) CHF (congestive heart failure) Code(s): I50.9 - HEART FAILURE, UNSPECIFIED Status: Acute (10) Hypokalemia Code(s): E87.6 - HYPOKALEMIA Status: Acute (11) Anemia Code(s): D64.9 - ANEMIA, UNSPECIFIED Status: Chronic QualifierTitle: Anemia type: unspecified type Qualified Code(s): D64.9 - Anemia, unspecified - Plan Plan: (1) AICD discharge - Plan for interrogation of AICD - Initial read shows event of V-tach - Cardiology consulted, appreciate recs - Dr. Arredondo has consulted EP, appreciate recs - Dr. Andino recommends ablation when INR therapeutic (2) Afib - Continue home meds - Currently V-paced - INR 4.6 this AM, continue to hold (3) CAD (coronary artery disease) - Continue home meds (4) CKD (chronic kidney disease) stage 3, GFR 30-59 ml/min - Will start gentle IVF - Monitor Creatinine (5) DM2 (diabetes mellitus, type 2) - HgbA1C 9.5 - Increased regimen for better control - Accuchecks - increased SSI to moderate (6) Ischemic cardiomyopathy - Continue home meds (7) COPD (chronic obstructive pulmonary disease) - Duonebs - Continue home meds (8) Tobacco abuse - Counseled on cessation - Nicotine patch if needed (9) CHF (congestive heart failure) - Monitor fluid status closely - Continue home meds (10) Hypokalemia, resolved - Will replenish - Monitor with BMP (11) Anemia - Likely due to CKD - Hgb fluctuated on previous admissions - Await FOBT results - No other signs or symptoms of bleeding Disposition: Stable, will await better glycemic control and decrease of INR. <Rodo Landon - Last Filed: 10/10/17 08:10> (1) AICD discharge Code(s): Z45.02 - ENCNTR FOR ADJUST AND MGMT OF AUTOMATIC IMPLNTBL CARD DEFIB Status: Acute (2) Afib Code(s): I48.91 - UNSPECIFIED ATRIAL FIBRILLATION Status: Chronic Qualifiers: Atrial fibrillation type: chronic Qualified Code(s): I48.2 - Chronic atrial fibrillation (3) CAD (coronary artery disease) Code(s): I25.10 - ATHSCL HEART DISEASE OF [place] CORONARY ARTERY W/O ANG PCTRS Status: Chronic Qualifiers: Coronary Disease-Associated Artery/Lesion type: [place] artery [place] vs. transplanted heart: [place] heart Associated angina: without angina Qualified Code(s): I25.10 - Atherosclerotic heart disease of [place] coronary artery without angina pectoris (4) CKD (chronic kidney disease) stage 3, GFR 30-59 ml/min Status: Chronic (5) DM2 (diabetes mellitus, type 2) Status: Chronic Qualifiers: Diabetes mellitus air conditioning specialist insulin use: with [facility]p use Diabetes mellitus complication status: with kidney complications Diabetes mellitus complication detail: with chronic kidney disease Chronic kidney disease stage : stage 3 (moderate) Qualified Code(s): E11.22 - Type 2 diabetes mellitus with diabetic chronic kidney disease; N18.3 - Chronic kidney disease, stage 3 ( moderate); N18.3 - Chronic kidney disease, stage 3 (moderate); Z79.4 - windows vmware administrator (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 of insulin; Z79.4 - windows vmware administrator (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 of insulin; Z79.4 - alf (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 of insulin; Z79.4 - alf (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 of insulin (6) Ischemic cardiomyopathy Code(s): I25.5 - ISCHEMIC CARDIOMYOPATHY Status: Chronic (7) COPD (chronic obstructive pulmonary disease) Status: Acute (8) Tobacco abuse Code(s): Z72.0 - TOBACCO USE Status: Acute (9) CHF (congestive heart failure) Code(s): I50.9 - HEART FAILURE, UNSPECIFIED Status: Acute (10) Hypokalemia Code(s): E87.6 - HYPOKALEMIA Status: Acute (11) Anemia Code(s): D64.9 - ANEMIA, UNSPECIFIED Status: Chronic Qualifiers: Anemia type: unspecified type Qualified Code(s): D64.9 - Anemia, unspecified <Mikel Morgan R - Last Filed: 10/10/17 10:56> Attending Addendum - Attending Addendum Date/Time: 10/10/17 1054 I personally evaluated the patient and discussed the management with Dr. Landon. I agree with the History, Examination, Assessment and Plan documented above with any addition or exceptions noted below. Patient is scheduled for EP ablation tomorrow pending his INR is therapeutic. Continue to hold warfarin. He has otherwise done fairly well on amiodarone and has not had any aberrancy on telemetry. Appreciate cardiology and EP recs. Patient with minimal lower extremity edema and no shortness of breath. Sats stable. <Mikel Morgan R - Last Filed: 10/10/17 10:56>
[2017-10-10] MEDS: Mometasone/Formoterol 120 PUFF INHALER INH SCH ×2 (07:27→18:47)
[2017-10-10] MEDS ORDERED: INSULIN GLARGINE SC SCH (09:00)
[2017-10-10] MEDS ORDERED: ADMIXTURE FEE SC SCH (09:00)
[2017-10-10] MEDS: Carvedilol 3.125 MG TAB PO SCH ×2 (09:03→21:20)
[2017-10-10] MEDS: Ferrous Sulfate 325 MG TAB PO SCH ×2 (09:03→21:20)
[2017-10-10] MEDS: Amiodarone 200 MG TAB PO SCH (09:03)
[2017-10-10] MEDS ORDERED: Phytonadione 10 MG/ML AMP PO SCH (10:00)
[2017-10-10] MEDS: Insulin Regular 300 UNITS/3 ML VIAL SC PRN ×2 (12:21→18:11)
--- NOTE | 2017-10-10 13:02 | PRG ---
DATE OF SERVICE: 10/10/2017 SUBJECTIVE: Mr. Soto seems to be doing well without any signs of angina or further CHF issues. He i s able to lay flat. OBJECTIVE DATA: VITAL SIGNS: Blood pressure is 108/61, heart rate 72, respiratory rate 20, temperature 98 degrees Fa hrenheit. GENERAL: He is an alert and oriented man in no apparent distress. NECK: Supple. Jugular veins are slightly distended. CHEST: Coarse with a few crackles. HEART: Sounds are regularly regular. S1 and S2 are variable. No murmur, rub, or gallop. Left prec ordial ICD insertion site is well healed. ABDOMEN: Benign. Bowel sounds positive. LOWER EXTREMITIES: Without edema, clubbing, or cyanosis. DATABASE: The telemetry reveals atrial fibrillation, ventricular pacing alternating with a conducted atrial fibrillation beats. LABORATORY DATA: The INR this morning is 4.6. ASSESSMENT AND PLAN: Mr. Rod is a very pleasant 72-year-old man with a prior history of congestiv e heart failure, likely ischemic cardiomyopathy, prior bypass surgery. He presented after a syncopal spell and implantable cardioverter defibrillator shock. The implantable cardioverter defibrillator interrogation reveals chronic atrial fibrillation, but an episode of rapid ventricular tachycardia, r equiring adequate therapy for letting to his syncopal event was noted. At this point, he remained stable without further ventricular arrhythmias. Some degree of heart fail ure exacerbation is present based on his OptiVol data. On the other hand, he also has renal insuffic iency, started him now on diuretics, but his renal insufficiency seems to be at baseline. As noted before, his biventricular implantable cardioverter defibrillator is suboptimally supporting him with low ventricular pacing in the 70s due to atrial fibrillation and rapidly conducted beats. I think this fact likely contributes to his heart failure exacerbation, also could potentially exacerb ate some of his ventricular arrhythmias. At this point, my plan would be to consider AV alcon ablation, which hopefully will help him to impro ve his biventricular pacing percentage as far as his synchrony and subsequently reduce his chance for further congestive heart failure exacerbations. This also could reduce the chance for further ventr icular arrhythmias. At this point, I am holding off on antiarrhythmic agents. He is a somewhat suboptimal candidate exce pt for possibly amiodarone. Chronic anticoagulation for atrial fibrillation, currently over therapeutic reducing to 4.6 today. W e will give him some vitamin K to have him ready for even ablation procedure.
--- NOTE | 2017-10-10 14:49 | PDOC.CTH ---
Cardiology Progress Note - Subjective No complaints today. Awaiting therapuetic INR for AV alcon ablation. 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 ICD shock - secondary to RVR. Plan for AVJ-RFA when INR therapeutic 2. Chronic AF - see above. 3. CHF - stable 4. DM-II - uncontrolled.
[2017-10-10] MEDS: Simvastatin 40 MG TAB PO SCH (21:19)
[2017-10-10] MEDS: Insulin Glargine 60 UNITS in Pre-Filled Syringe 1 EACH SC SCH (22:31)
[2017-10-11] MEDS: Carvedilol 3.125 MG TAB PO SCH ×2 (05:27→21:08)
[2017-10-11 05:47] LABS: INR-International Normal Ratio 1.4; Prothrombin Time 17.9 SEC (12.0-14.7)
--- NOTE | 2017-10-11 06:18 | PDOC.FM ---
- Subjective Subjective: Patient feeling well today. No acute events overnight. He is ready to have his ablation today. No other complaints. - Objective Vital Signs & Weight: Vital Signs (12 hours) Temp Pulse Resp BP Pulse Ox 10/11/17 03:17 98.4 F 88 20 134/58 L 100 10/11/17 02:07 89 18 96 10/10/17 22:22 87 16 98 10/10/17 21:20 98.2 F 86 20 144/63 H 100 10/10/17 18:44 89 18 100 Weight Admit Weight 107.53 kg Weight 107.303 kg I&O: 10/09/17 10/10/17 10/11/17 06:59 06:59 06:59 Intake Total 2100 1200 960 Output Total 593 148 2708 Balance 1475 250 -240 Result Diagrams: 10/09/17 04:24 10/09/17 04:24 <Rodo Landon - Last Filed: 10/11/17 08:29> - Objective Vital Signs & Weight: Vital Signs (12 hours) Temp Pulse Resp BP Pulse Ox 10/11/17 09:52 98.2 F 78 18 125/56 L 100 10/11/17 07:49 98.2 F 88 14 10/11/17 07:47 88 14 98 10/11/17 03:17 98.4 F 88 20 134/58 L 100 10/11/17 02:07 89 18 96 Weight Admit Weight 107.53 kg Weight 107.615 kg I&O: 10/10/17 10/11/17 10/12/17 06:59 06:59 06:59 Intake Total 1200 1135 Output Total 950 1775 Balance 250 -640 Result Diagrams: 10/09/17 04:24 10/09/17 04:24 <Mikel Morgan - Last Filed: 10/11/17 10:31> Phys Exam - Physical Examination HEENT: moist MMs Neck: no nodes Respiratory: no wheezing, clear to auscultation bilateral Cardiovascular: RRR, no significant murmur Gastrointestinal: soft, non-tender, no distention, positive bowel sounds Musculoskeletal: edema present (1+ pitting edema present ) multiple ecchymosis on bilateral upper and lower extremities Neurological: non-focal, normal sensation, moves all 4 limbs Lymphatic: no nodes Psychiatric: normal affect, A&O x 3 Skin: no rash <Rodo Landon - Last Filed: 10/11/17 08:29> Dx/Plan (1) AICD discharge Code(s): Z45.02 - ENCNTR FOR ADJUST AND MGMT OF AUTOMATIC IMPLNTBL CARD DEFIB Status: Acute (2) Afib Code(s): I48.91 - UNSPECIFIED ATRIAL FIBRILLATION Status: Chronic QualifierTitle: Atrial fibrillation type: chronic Qualified Code(s): I48.2 - Chronic atrial fibrillation (3) CAD (coronary artery disease) Code(s): I25.10 - ATHSCL HEART DISEASE OF [place] CORONARY ARTERY W/O ANG PCTRS Status: Chronic QualifierTitle: Coronary Disease-Associated Artery/Lesion type: [place] artery [place] vs. transplanted heart: [place] heart Associated angina: without angina Qualified Code(s): I25.10 - Atherosclerotic heart disease of [place] coronary artery without angina pectoris (4) CKD (chronic kidney disease) stage 3, GFR 30-59 ml/min Status: Chronic (5) DM2 (diabetes mellitus, type 2) Status: Chronic QualifierTitle: Diabetes mellitus intermediate designer insulin use: with intermediate designer use Diabetes mellitus complication status: with kidney complications Diabetes mellitus complication detail: with chronic kidney disease Chronic kidney disease stage: stage 3 (moderate) Qualified Code(s): E11.22 - Type 2 diabetes mellitus with diabetic chronic kidney disease; N18.3 - Chronic kidney disease, stage 3 (moderate); N18.3 - Chronic kidney disease, stage 3 (moderate) ; Z79.4 - penitentiary (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 of insulin; Z79.4 - penitentiary (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 of insulin; Z79.4 - penitentiary (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 of insulin; Z79.4 - penitentiary ( 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 of insulin (6) Ischemic cardiomyopathy Code(s): I25.5 - ISCHEMIC CARDIOMYOPATHY Status: Chronic (7) COPD (chronic obstructive pulmonary disease) Status: Acute (8) Tobacco abuse Code(s): Z72.0 - TOBACCO USE Status: Acute (9) CHF (congestive heart failure) Code(s): I50.9 - HEART FAILURE, UNSPECIFIED Status: Acute (10) Hypokalemia Code(s): E87.6 - HYPOKALEMIA Status: Acute (11) Anemia Code(s): D64.9 - ANEMIA, UNSPECIFIED Status: Chronic QualifierTitle: Anemia type: unspecified type Qualified Code(s): D64.9 - Anemia, unspecified (12) Supratherapeutic INR Code(s): R79.1 - ABNORMAL COAGULATION PROFILE Status: Resolved - Plan Plan: (1) AICD discharge - Plan for interrogation of AICD - Initial read shows event of V-tach - Cardiology consulted, appreciate recs - Dr. Arredondo has consulted EP, appreciate recs - Dr. Andino recommends ablation when INR therapeutic, INR this morning 1.6 after Vit. K (2) Afib - Continue home meds - Currently V-paced - INR 1.6 this AM, continue to hold until after procedure (3) CAD (coronary artery disease) - Continue home meds (4) CKD (chronic kidney disease) stage 3, GFR 30-59 ml/min - IVF d/c - Monitor Creatinine (5) DM2 (diabetes mellitus, type 2) - HgbA1C 9.5 - Increased regimen for better control - Accuchecks - increased SSI to aggressive (6) Ischemic cardiomyopathy - Continue home meds (7) COPD (chronic obstructive pulmonary disease) - Duonebs - Continue home meds (8) Tobacco abuse - Counseled on cessation - Nicotine patch if needed (9) CHF (congestive heart failure) - Monitor fluid status closely - Continue home meds (10) Hypokalemia, resolved - Will replenish - Monitor with BMP (11) Anemia - Likely due to CKD - Hgb fluctuated on previous admissions - Await FOBT results - No other signs or symptoms of bleeding Disposition: Stable, will await EP recs <Rodo Landon - Last Filed: 10/11/17 08:29> (1) AICD discharge Code(s): Z45.02 - ENCNTR FOR ADJUST AND MGMT OF AUTOMATIC IMPLNTBL CARD DEFIB Status: Acute (2) Afib Code(s): I48.91 - UNSPECIFIED ATRIAL FIBRILLATION Status: Chronic Qualifiers: Atrial fibrillation type: chronic Qualified Code(s): I48.2 - Chronic atrial fibrillation (3) CAD (coronary artery disease) Code(s): I25.10 - ATHSCL HEART DISEASE OF [place] CORONARY ARTERY W/O ANG PCTRS Status: Chronic Qualifiers: Coronary Disease-Associated Artery/Lesion type: [place] artery [place] vs. transplanted heart: [place] heart Associated angina: without angina Qualified Code(s): I25.10 - Atherosclerotic heart disease of [place] coronary artery without angina pectoris (4) CKD (chronic kidney disease) stage 3, GFR 30-59 ml/min Status: Chronic (5) DM2 (diabetes mellitus, type 2) Status: Chronic Qualifiers: Diabetes mellitus custodial insulin use: with intermediate designer use Diabetes mellitus complication status: with kidney complications Diabetes mellitus complication detail: with chronic kidney disease Chronic kidney disease stage : stage 3 (moderate) Qualified Code(s): E11.22 - Type 2 diabetes mellitus with diabetic chronic kidney disease; N18.3 - Chronic kidney disease, stage 3 ( moderate); N18.3 - Chronic kidney disease, stage 3 (moderate); Z79.4 - penitentiary (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 of insulin; Z79.4 - penitentiary (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 of insulin; Z79.4 - long term care social worker (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 of insulin; Z79.4 - long term care social worker (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 of insulin (6) Ischemic cardiomyopathy Code(s): I25.5 - ISCHEMIC CARDIOMYOPATHY Status: Chronic (7) COPD (chronic obstructive pulmonary disease) Status: Acute (8) Tobacco abuse Code(s): Z72.0 - TOBACCO USE Status: Acute (9) CHF (congestive heart failure) Code(s): I50.9 - HEART FAILURE, UNSPECIFIED Status: Acute (10) Hypokalemia Code(s): E87.6 - HYPOKALEMIA Status: Acute (11) Anemia Code(s): D64.9 - ANEMIA, UNSPECIFIED Status: Chronic Qualifiers: Anemia type: unspecified type Qualified Code(s): D64.9 - Anemia, unspecified <Mikel Morgan - Last Filed: 10/11/17 10:31> Attending Addendum - Attending Addendum Date/Time: 10/11/17 1029 I personally evaluated the patient and discussed the management with Dr. Landon. I agree with the History, Examination, Assessment and Plan documented above with any addition or exceptions noted below. Patient doing well. His INR is now subtherapeutic 2/2 Vit K admin by EP today, so he should be favorable for RFA today. Await that procedure and further recs from cardiology. Consider NOAC versus resumption of warfarin after procedure, will discuss with PCP and Cardiology. Patient does have fairly significant risk of bleeding 2/2 recent falls. Other labs stable. Has diuresed mildly overnight. <Mikel Morgan - Last Filed: 10/11/17 10:31>
[2017-10-11] MEDS: Mometasone/Formoterol 120 PUFF INHALER INH SCH ×2 (07:48→19:26)
[2017-10-11] MEDS: Ferrous Sulfate 325 MG TAB PO SCH ×2 (09:00→21:08)
[2017-10-11] MEDS ORDERED: Ketamine 50 MG/ML VIAL ONE (11:26)
[2017-10-11] MEDS ORDERED: Midazolam HCl 2 mg/2 ml Vial ONE (11:26)
[2017-10-11] MEDS ORDERED: Fentanyl 100 MCG/2 ML VIAL ONE (11:26)
[2017-10-11] MEDS ORDERED: Heparin 10,000 UNITS/1 ML VIAL ONE (12:14)
[2017-10-11] MEDS ORDERED: Lidocaine 1% (PF) 30 ML VIAL ONE (12:15)
[2017-10-11] MEDS ORDERED: DOPamine 400 MG/D5W 250 ML 250 ML ONE (12:17)
--- NOTE | 2017-10-11 13:00 | OP ---
DATE OF PROCEDURE: 10/11/2017 PROCEDURE: EP Study and Radiofrequency ablation. REFERRING PHYSICIAN: Dr. Cristian Arredondo SURGEON: Dr. Ryan Andino REASON FOR PROCEDURE: Mr. Soto is a 72-year-old male with history of chronic atrial fibrillation, CHF, cardiomyopathy, history of ventricular tachycardia, on amiodarone suppression. He has had another recurrence of recurring ICD shock while on amiodarone. He has poorly controlled heart failure with ventricular pacing only 70% despite the amiodarone administration, hence and well functioning biventricular ICD. The plan is to perform AV alcon ablation. PROCEDURE: The patient received propofol per Anesthesia specialist. After adequate level of sedation achieved, the right femoral venous area was prepped and draped, anesthetized using subcutaneous lidocaine and under ultrasound guidance, right femoral vein was cannulated with a multipurpose needle and an 8 [place] short sheath was introduced. Through this, a ThermoCool SF catheter was advanced to the right atrium. The HIS bundle was located and the compact AV node also identified on fluoroscopic. The following measurements were obtained. The QRS 140, QT 3371, H1 59, HV 88 milliseconds. The pacemaker/ICD function was verified programmed to VVI 40. In the settings radiofrequency ablation of the compact AV node was performed. Residual junctional escape rhythm is noted. Dopamine administered and no true AV alcon conduction remained. CONCLUSION: Successful AV alcon ablation. PLAN: 1. Resume anticoagulation and routine ICD monitoring. 2. Continue the amiodarone hence history of ventricular tachycardia. MTDD
[2017-10-11] MEDS ORDERED: PROPOFOL 200 MG/20 ML VIAL ONE (13:30)
[2017-10-11] MEDS: Amiodarone 200 MG TAB PO SCH (16:34)
[2017-10-11] MEDS ORDERED: Warfarin Sodium 10 MG TAB PO SCH (17:00)
[2017-10-11] MEDS: Insulin Regular 300 UNITS/3 ML VIAL SC PRN (18:12)
[2017-10-11] MEDS: Simvastatin 40 MG TAB PO SCH (21:08)
[2017-10-11] MEDS: Insulin Glargine 60 UNITS in Pre-Filled Syringe 1 EACH SC SCH (21:09)
[2017-10-12 05:50] LABS: #Eosinphils 0.1 thou/uL (0.0-0.7); #Lymphocytes 1.5 thou/uL (1.20-3.40); #Monocytes 0.9 thou/uL (0.11-0.59); #Neutrophils 8.3 thou/uL (1.40-6.50); %Eosinophils 1.2 % (0.0-10.0); %Lymphocytes 13.7 % (21.0-51.0); %Monocytes 8.5 % (0.0-10.0); %Neutrophils 76.6 % (42.0-75.0); Hemoglobin 6.8 g/dL (14.0-18.0); Mean Corpuscular HGB CONC 33.2 g/dL (32.0-36.0); Mean Corpuscular Hemoglobin 30.5 pg (27.0-31.0); Mean Corpuscular Volume 91.9 fl (80.0-94.0); Mean Platelet Volume 6.9 fL (7.4-10.4); Platelet Count 248 thou/uL (130-400); RBC Distribution Width 15.7 % (11.5-14.5); Red Blood Cell (RBC) Count 2.22 mill/uL (4.70-6.10); White Blood Cell (WBC) Count 10.8 thou/uL (4.8-10.8)
[2017-10-12 06:01] LABS: PTT 33.7 SEC (22.9-36.1)
[2017-10-12 06:06] LABS: INR-International Normal Ratio 1.3; Prothrombin Time 16.5 SEC (12.0-14.7)
[2017-10-12] MEDS: Mometasone/Formoterol 120 PUFF INHALER INH SCH ×2 (07:36→19:08)
--- NOTE | 2017-10-12 07:52 | PDOC.FM ---
- Subjective Subjective: Patient had a good night, however, he states that he feels weak when he gets up to walk around. He also notes that he doesn't feel safe to go home. He states that he would like to go to rehab before going home. He denies any chest pain, new sob, or palpitations. No other complaints today. - Objective Vital Signs & Weight: Vital Signs (12 hours) Temp Pulse Resp BP Pulse Ox 10/12/17 07:38 72 16 98 10/12/17 07:36 77 18 97 10/12/17 04:00 97.9 F 70 20 109/53 L 94 L 10/12/17 02:09 69 18 100 10/11/17 19:59 98.3 F 70 20 109/55 L 100 Weight Admit Weight 107.53 kg Weight 109.497 kg I&O: 10/11/17 10/12/17 10/13/17 06:59 06:59 06:59 Intake Total 1135 1070 Output Total 1775 280 Balance -640 790 Result Diagrams: 10/12/17 04:53 10/09/17 04:24 <Rodo Landon - Last Filed: 10/12/17 07:50> - Objective Vital Signs & Weight: Vital Signs (12 hours) Temp Pulse Resp BP Pulse Ox 10/12/17 08:15 98.2 F 71 20 112/57 L 100 10/12/17 07:38 72 16 98 10/12/17 07:36 77 18 97 10/12/17 04:00 97.9 F 70 20 109/53 L 94 L 10/12/17 02:09 69 18 100 Weight Admit Weight 107.53 kg Weight 109.497 kg I&O: 10/11/17 10/12/17 10/13/17 06:59 06:59 06:59 Intake Total 1135 1070 Output Total 1775 280 Balance -640 790 Result Diagrams: 10/12/17 04:53 10/12/17 08:10 <Mikel Morgan - Last Filed: 10/12/17 09:48> Phys Exam - Physical Examination Neck: no nodes Respiratory: wheezing present Cardiovascular: RRR, no significant murmur Gastrointestinal: soft, non-tender, no distention, positive bowel sounds Musculoskeletal: edema present Multiple ecchymosis over upper and lower extremities Neurological: non-focal, moves all 4 limbs Lymphatic: no nodes Psychiatric: normal affect, A&O x 3 Skin: no rash <Rodo Landon - Last Filed: 10/12/17 07:50> Dx/Plan (1) AICD discharge Code(s): Z45.02 - ENCNTR FOR ADJUST AND MGMT OF AUTOMATIC IMPLNTBL CARD DEFIB Status: Acute (2) Afib Code(s): I48.91 - UNSPECIFIED ATRIAL FIBRILLATION Status: Chronic QualifierTitle: Atrial fibrillation type: chronic Qualified Code(s): I48.2 - Chronic atrial fibrillation (3) CAD (coronary artery disease) Code(s): I25.10 - ATHSCL HEART DISEASE OF [place] CORONARY ARTERY W/O ANG PCTRS Status: Chronic QualifierTitle: Coronary Disease-Associated Artery/Lesion type: [place] artery [place] vs. transplanted heart: [place] heart Associated angina: without angina Qualified Code(s): I25.10 - Atherosclerotic heart disease of [place] coronary artery without angina pectoris (4) CKD (chronic kidney disease) stage 3, GFR 30-59 ml/min Status: Chronic (5) DM2 (diabetes mellitus, type 2) Status: Chronic QualifierTitle: Diabetes mellitus manager intermediate insulin use: with jail use Diabetes mellitus complication status: with kidney complications Diabetes mellitus complication detail: with chronic kidney disease Chronic kidney disease stage: stage 3 (moderate) Qualified Code(s): E11.22 - Type 2 diabetes mellitus with diabetic chronic kidney disease; N18.3 - Chronic kidney disease, stage 3 (moderate); N18.3 - Chronic kidney disease, stage 3 (moderate) ; Z79.4 - jail (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 of insulin; Z79.4 - manager intermediate (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 of insulin; Z79.4 - jail (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 of insulin; Z79.4 - manager intermediate ( 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 of insulin (6) Ischemic cardiomyopathy Code(s): I25.5 - ISCHEMIC CARDIOMYOPATHY Status: Chronic (7) COPD (chronic obstructive pulmonary disease) Status: Acute (8) Tobacco abuse Code(s): Z72.0 - TOBACCO USE Status: Acute (9) CHF (congestive heart failure) Code(s): I50.9 - HEART FAILURE, UNSPECIFIED Status: Acute (10) Hypokalemia Code(s): E87.6 - HYPOKALEMIA Status: Acute (11) Anemia Code(s): D64.9 - ANEMIA, UNSPECIFIED Status: Chronic QualifierTitle: Anemia type: unspecified type Qualified Code(s): D64.9 - Anemia, unspecified (12) Supratherapeutic INR Code(s): R79.1 - ABNORMAL COAGULATION PROFILE Status: Resolved - Plan Plan: (1) AICD discharge - Plan for interrogation of AICD - Initial read shows event of V-tach - Cardiology consulted, appreciate recs - Dr. Arredondo has consulted EP, appreciate recs - Dr. Andino completed successful ablation 10/11 (2) Afib - Continue home meds - Currently V-paced - INR 1.3 this AM, continue to monitor (3) CAD (coronary artery disease) - Continue home meds (4) CKD (chronic kidney disease) stage 3, GFR 30-59 ml/min - IVF d/c - Monitor Creatinine (5) DM2 (diabetes mellitus, type 2) - HgbA1C 9.5 - Increased regimen for better control - Accuchecks - increased SSI to aggressive (6) Ischemic cardiomyopathy - Continue home meds (7) COPD (chronic obstructive pulmonary disease) - Duonebs - Continue home meds (8) Tobacco abuse - Counseled on cessation - Nicotine patch if needed (9) CHF (congestive heart failure) - Monitor fluid status closely - Continue home meds - Will give lasix after transfusion (10) Hypokalemia, resolved - resolved (11) Anemia - Likely due to CKD - Hgb fluctuated on previous admissions - Hgb this AM 6.8, will type and cross 1u of blood - Becoming symptomatic: feeling weak, not able to walk far, increased O2 demand - Multiple ecchymosis from previous fall Disposition: Stable, Patient would like to be placed in SNF for rehab upon discharge. Will confirm with EP that patient is stable for discharge. <Rodo Landon - Last Filed: 10/12/17 07:50> (1) AICD discharge Code(s): Z45.02 - ENCNTR FOR ADJUST AND MGMT OF AUTOMATIC IMPLNTBL CARD DEFIB Status: Acute (2) Afib Code(s): I48.91 - UNSPECIFIED ATRIAL FIBRILLATION Status: Chronic Qualifiers: Atrial fibrillation type: chronic Qualified Code(s): I48.2 - Chronic atrial fibrillation (3) CAD (coronary artery disease) Code(s): I25.10 - ATHSCL HEART DISEASE OF [place] CORONARY ARTERY W/O ANG PCTRS Status: Chronic Qualifiers: Coronary Disease-Associated Artery/Lesion type: [place] artery [place] vs. transplanted heart: [place] heart Associated angina: without angina Qualified Code(s): I25.10 - Atherosclerotic heart disease of [place] coronary artery without angina pectoris (4) CKD (chronic kidney disease) stage 3, GFR 30-59 ml/min Status: Chronic (5) DM2 (diabetes mellitus, type 2) Status: Chronic Qualifiers: Diabetes mellitus manager intermediate insulin use: with manager intermediate use Diabetes mellitus complication status: with kidney complications Diabetes mellitus complication detail: with chronic kidney disease Chronic kidney disease stage : stage 3 (moderate) Qualified Code(s): E11.22 - Type 2 diabetes mellitus with diabetic chronic kidney disease; N18.3 - Chronic kidney disease, stage 3 ( moderate); N18.3 - Chronic kidney disease, stage 3 (moderate); Z79.4 - jail (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 of insulin; Z79.4 - jail (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 of insulin; Z79.4 - manager intermediate (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 of insulin; Z79.4 - jail (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 of insulin (6) Ischemic cardiomyopathy Code(s): I25.5 - ISCHEMIC CARDIOMYOPATHY Status: Chronic (7) COPD (chronic obstructive pulmonary disease) Status: Acute (8) Tobacco abuse Code(s): Z72.0 - TOBACCO USE Status: Acute (9) CHF (congestive heart failure) Code(s): I50.9 - HEART FAILURE, UNSPECIFIED Status: Acute (10) Hypokalemia Code(s): E87.6 - HYPOKALEMIA Status: Acute (11) Anemia Code(s): D64.9 - ANEMIA, UNSPECIFIED Status: Chronic Qualifiers: Anemia type: unspecified type Qualified Code(s): D64.9 - Anemia, unspecified <Mikel Morgan - Last Filed: 10/12/17 09:48> Attending Addendum - Attending Addendum Date/Time: 10/12/17 0946 I personally evaluated the patient and discussed the management with Dr. Landon. I agree with the History, Examination, Assessment and Plan documented above with any addition or exceptions noted below. Patient with successful EP ablation yesterday. He is currently v-paced, though atrial rhythm is fibrillation. Continue amiodarone. He is more anemic this morning, and currently feeling fatigued and complaints of leg pain. We will give 1 u PRBC with Lasix afterward to prevent fluid overload. Awaiting bowel movement for FOBT to try and ascertain where he is bleeding from. He has multiple bruises associated with his previously supratherapeutic INR and that may be part of where he has been bleeding. <Mikel Morgan R - Last Filed: 10/12/17 09:48>
[2017-10-12] MEDS ORDERED: Enoxaparin Sodium 120 MG/0.8 ML SYRINGE SC SCH (09:00)
[2017-10-12 09:19] LABS: Anion Gap 18 mmol/L (10-20); BUN (Urea Nitrogen) 43 mg/dL (8.4-25.7); Calc. Creatinine Clearance 56 mL/min (70-130); Calcium 8.4 mg/dL (7.8-10.44); Carbon Dioxide 24 mmol/L (23-31); Chloride 95 mmol/L (98-107); Estimated GFR-MDRD 38; Glucose 124 mg/dL (83-110); Potassium 4.2 mmol/L (3.5-5.1); Sodium 133 mmol/L (136-145)
[2017-10-12] MEDS: Ferrous Sulfate 325 MG TAB PO SCH ×2 (10:32→20:37)
[2017-10-12] MEDS: Carvedilol 3.125 MG TAB PO SCH ×2 (10:32→20:37)
[2017-10-12] MEDS: Acetaminophen 325 MG TAB PO PRN (10:32)
[2017-10-12] MEDS: Amiodarone 200 MG TAB PO SCH (10:32)
[2017-10-12] MEDS: Polyethylene Glycol 3350 17 GM Packet PO SCH (10:33)
[2017-10-12] MEDS ORDERED: Furosemide 40 MG TAB PO SCH (12:00)
[2017-10-12] MEDS: Insulin Regular 300 UNITS/3 ML VIAL SC PRN ×2 (12:32→19:07)
--- NOTE | 2017-10-12 12:41 | PRG ---
DATE OF SERVICE: 10/12/2017 SUBJECTIVE: Mr. Soto states he is doing fine. No current complaints. He states he is weak. He und erwent a recent AV alcon ablation. He was having several runs of atrial fibrillation with rapid vent ricular response. He did undergo synchronized cardioversion prior to admission. OBJECTIVE: VITAL SIGNS: Blood pressure 112/57, pulse 81, temperature 98.2. LUNGS: Clear to auscultation. CARDIAC: Regular rate and rhythm. ABDOMEN: Soft, nontender, nondistended. EXTREMITIES: No edema. PERTINENT LABORATORY DATA: Hemoglobin 6.8, hematocrit 20.4. IMPRESSION: 1. Weakness and fatigue. 2. Atrial fibrillation with rapid ventricular response. 3. Status post AV alcon ablation. RECOMMENDATIONS: The patient will likely need transfusion. His hemoglobin has dropped from 8 to 6.8 from 10/09/2017 to 10/12/2017. Outside of weakness, he has no current symptoms. We would recommend 1 unit of packed red blood cells.
[2017-10-12] MEDS: traMADol HCl 50 MG TAB PO PRN (14:51)
[2017-10-12] MEDS ORDERED: Warfarin Sodium 3 MG TAB PO SCH (17:00)
--- NOTE | 2017-10-12 17:05 | PDOC.CTH ---
<Mckenzie Kebede - Last Filed: 10/12/17 17:14> Cardiology Progress Note - Subjective EP progress note: Patient seen and evaluated. No new cardiac complaints. Feels weak today and low energy levels. No chest pain, heart racing, palpitations, stroke or stroke like symptoms. + BLE leg pain. No pain at right groin sheath site from RFA yesterday. - Objective Vital Signs Temp Pulse Pulse Resp BP BP Pulse Ox 10/12/17 16:25 98.1 F 69 20 104/58 L 94 L 10/12/17 14:06 71 16 94 L 10/12/17 13:50 98.3 F 71 20 99/53 L 93 L 10/12/17 13:35 98.6 F 71 22 H 109/68 94 L 10/12/17 13:30 98.6 F 71 22 H 109/68 94 L 10/12/17 10:51 71 16 97 10/12/17 08:15 98.2 F 71 20 112/57 L 100 10/12/17 07:38 72 16 98 10/12/17 07:36 77 18 97 Admit Weight 237 lb 1 oz Weight 241 lb 6.4 oz 10/11/17 10/12/17 10/13/17 06:59 06:59 06:59 Intake Total 1135 1070 350 Output Total 1775 280 Balance -640 790 350 - Physical Examination General/Neuro: alert & oriented x3 Neck: carotid US brisk, no JVD present Lungs: unlabored respirations Heart: RRR Abdomen: NT/ND, soft Extremities: + edema B Other PE findings: right groin sheath site stable. no hematoma. - Telemetry Telemetry Rhythm: underlying AF, MANAGER PURCHASING - Labs Result Diagrams: 10/12/17 04:53 10/12/17 08:10 Troponin/CKMB CK-MB (CK-2) 2.3 ng/mL (0-6.6) 10/08/17 20:54 Troponin I 0.027 ng/mL (< 0.028) 10/08/17 20:54 - Assessment/Plan 1. Chronic atrial fibrillation- poor rate control with frequent RVR contributing to CHF exacerbations. Now s/p AV node ablation. 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 Acute anemia- 1 unit PRBC transfused today. H/H recheck pending. Mild concern for pericardial bleed post ablation. Echocardiogram ordered for further evaluation. 3. Congestive heart failure- now better compensated. BLE 1+ pitting edema present. 4. Sub therapeutic INR for atrial arrhythmias but with acute drop in hemoglobin. INR was critically high at 6.1 on admission. If stable enough to resume OAC may benefit from changing to NOAC in place of warfarin. 5. Deconditioning- reported plan for SNF/rehab once ready for DC. 6. Ventricular tachycardia- no new episodes. Continue chronic amiodarone for suppression. 7. ICD- normal function 8. Multiple recent falls at home- with critically elevated INR. Extensive bruising present on admission to generalized BUE and BLE posteriorly. May account for some of the blood loss. <Ryan Andino - Last Filed: 10/12/17 18:38> Cardiology Progress Note - Objective Vital Signs Temp Pulse Pulse Resp BP BP Pulse Ox 10/12/17 16:25 98.1 F 69 20 104/58 L 94 L 10/12/17 16:00 98.1 F 69 22 H 104/58 L 97 10/12/17 14:06 71 16 94 L 10/12/17 13:50 98.3 F 71 20 99/53 L 93 L 10/12/17 13:35 98.6 F 71 22 H 109/68 94 L 10/12/17 13:30 98.6 F 71 22 H 109/68 94 L 10/12/17 10:51 71 16 97 10/12/17 08:15 98.2 F 71 20 112/57 L 100 10/12/17 07:38 72 16 98 10/12/17 07:36 77 18 97 Admit Weight 237 lb 1 oz Weight 241 lb 6.4 oz 10/11/17 10/12/17 10/13/17 06:59 06:59 06:59 Intake Total 1135 1070 350 Output Total 1775 280 Balance -640 790 350 - Labs Result Diagrams: 10/12/17 04:53 10/12/17 08:10 Troponin/CKMB CK-MB (CK-2) 2.3 ng/mL (0-6.6) 10/08/17 20:54 Troponin I 0.027 ng/mL (< 0.028) 10/08/17 20:54 Attending Addendum - Attending Addendum Date/Time: 10/12/171836 I personally evaluated the patient and discussed the management with Ms Kebeed. I agree with the History, Examination, Assessment and Plan documented above with any addition or exceptions noted below. 1. Chronic atrial fibrillation- poor rate control with frequent RVR contributing to CHF exacerbations. Now s/p AV node ablation. 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 Acute anemia- 1 unit PRBC transfused today. H/H recheck pending. Mild concern for pericardial bleed post ablation. Echocardiogram ordered for further evaluation. No paradox pulse present. 3. Congestive heart failure- now better compensated. BLE 1+ pitting edema present. 4. Sub therapeutic INR for atrial arrhythmias but with acute drop in hemoglobin. INR was critically high at 6.1 on admission. If stable enough to resume OAC may benefit from changing to NOAC in place of warfarin. 5. Deconditioning- reported plan for SNF/rehab once ready for DC. 6. Ventricular tachycardia- no new episodes. Continue chronic amiodarone for suppression. 7. BiV ICD- normal function 8. Multiple recent falls at home- with critically elevated INR. Extensive bruising present on admission to generalized BUE and BLE posteriorly. May account for some of the blood loss.
[2017-10-12 20:05] LABS: #Eosinphils 0.1 thou/uL (0.0-0.7); #Lymphocytes 1.5 thou/uL (1.20-3.40); #Monocytes 0.9 thou/uL (0.11-0.59); #Neutrophils 8.4 thou/uL (1.40-6.50); %Eosinophils 1.4 % (0.0-10.0); %Lymphocytes 13.6 % (21.0-51.0); %Monocytes 8.3 % (0.0-10.0); %Neutrophils 76.7 % (42.0-75.0); Hemoglobin 7.1 g/dL (14.0-18.0); Mean Corpuscular HGB CONC 33.1 g/dL (32.0-36.0); Mean Corpuscular Hemoglobin 30.7 pg (27.0-31.0); Mean Corpuscular Volume 92.9 fl (80.0-94.0); Platelet Count 227 thou/uL (130-400); RBC Distribution Width 15.4 % (11.5-14.5); Red Blood Cell (RBC) Count 2.31 mill/uL (4.70-6.10); White Blood Cell (WBC) Count 10.9 thou/uL (4.8-10.8)
[2017-10-12] MEDS: Simvastatin 40 MG TAB PO SCH (20:37)
[2017-10-12] MEDS: Insulin Glargine 60 UNITS in Pre-Filled Syringe 1 EACH SC SCH (20:39)
[2017-10-13 00:43] LABS: Hemoglobin 7.2 g/dL (14.0-18.0); Mean Corpuscular Hemoglobin 30.8 pg (27.0-31.0); Mean Corpuscular Volume 93.3 fl (80.0-94.0); Mean Platelet Volume 6.6 fL (7.4-10.4); Platelet Count 232 thou/uL (130-400); RBC Distribution Width 15.1 % (11.5-14.5); Red Blood Cell (RBC) Count 2.33 mill/uL (4.70-6.10); White Blood Cell (WBC) Count 9.7 thou/uL (4.8-10.8)
--- NOTE | 2017-10-13 06:40 | PDOC.FM ---
- Subjective Subjective: Patient's status is unchanged. He still feels not great. He hasn't had any acute changes in his status, but would like to feel better. He also feels like he needs to have BM, but can't go. We will increase his regimen for that today. Otherwise no other complaints this morning. - Objective Vital Signs & Weight: Vital Signs (12 hours) Temp Pulse Resp BP Pulse Ox 10/13/17 04:00 97.8 F 71 20 110/70 98 10/13/17 03:10 75 18 10/13/17 00:00 98.1 F 82 18 98/51 L 95 10/12/17 22:21 72 16 10/12/17 20:00 98.2 F 69 20 116/58 L 97 10/12/17 19:08 72 16 Weight Admit Weight 107.53 kg Weight 107.683 kg I&O: 10/11/17 10/12/17 10/13/17 06:59 06:59 06:59 Intake Total 1135 1070 830 Output Total 1775 280 Balance -640 790 830 Result Diagrams: 10/13/17 06:51 10/12/17 08:10 <Rodo Landon - Last Filed: 10/13/17 07:33> - Objective Vital Signs & Weight: Vital Signs (12 hours) Temp Pulse Resp BP Pulse Ox 10/13/17 10:27 71 10/13/17 10:14 100 10/13/17 09:34 99.1 F 70 19 94/51 L 76 L 10/13/17 07:44 77 16 96 10/13/17 07:41 77 16 96 10/13/17 04:00 97.8 F 71 20 110/70 98 10/13/17 03:10 75 18 10/13/17 00:00 98.1 F 82 18 98/51 L 95 Weight Admit Weight 107.53 kg Weight 107.683 kg I&O: 10/12/17 10/13/17 10/14/17 06:59 06:59 06:59 Intake Total 1070 830 Output Total 280 Balance 790 830 Result Diagrams: 10/13/17 06:51 10/12/17 08:10 <Mikel Morgan - Last Filed: 10/13/17 10:42> Phys Exam - Physical Examination HEENT: moist MMs Neck: no nodes Respiratory: wheezing present, clear to auscultation bilateral Cardiovascular: RRR, no significant murmur Gastrointestinal: soft, non-tender, no distention, positive bowel sounds Musculoskeletal: pulses present, edema present at baseline, Multiple ecchymosis. No ecchymosis on back. Neurological: non-focal, normal sensation, moves all 4 limbs Lymphatic: no nodes Psychiatric: normal affect, A&O x 3 Skin: no rash <Rodo Landon - Last Filed: 10/13/17 07:33> Dx/Plan (1) AICD discharge Code(s): Z45.02 - ENCNTR FOR ADJUST AND MGMT OF AUTOMATIC IMPLNTBL CARD DEFIB Status: Acute (2) Afib Code(s): I48.91 - UNSPECIFIED ATRIAL FIBRILLATION Status: Chronic QualifierTitle: Atrial fibrillation type: chronic Qualified Code(s): I48.2 - Chronic atrial fibrillation (3) CAD (coronary artery disease) Code(s): I25.10 - ATHSCL HEART DISEASE OF [place] CORONARY ARTERY W/O ANG PCTRS Status: Chronic QualifierTitle: Coronary Disease-Associated Artery/Lesion type: [place] artery [place] vs. transplanted heart: [place] heart Associated angina: without angina Qualified Code(s): I25.10 - Atherosclerotic heart disease of [place] coronary artery without angina pectoris (4) CKD (chronic kidney disease) stage 3, GFR 30-59 ml/min Status: Chronic (5) DM2 (diabetes mellitus, type 2) Status: Chronic QualifierTitle: Diabetes mellitus alf insulin use: with alf use Diabetes mellitus complication status: with kidney complications Diabetes mellitus complication detail: with chronic kidney disease Chronic kidney disease stage: stage 3 (moderate) Qualified Code(s): E11.22 - Type 2 diabetes mellitus with diabetic chronic kidney disease; N18.3 - Chronic kidney disease, stage 3 (moderate); N18.3 - Chronic kidney disease, stage 3 (moderate) ; Z79.4 - alf (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 of insulin; Z79.4 - intermediate manager (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 of insulin; Z79.4 - intermediate manager (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 of insulin; Z79.4 - alf ( 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 of insulin (6) Ischemic cardiomyopathy Code(s): I25.5 - ISCHEMIC CARDIOMYOPATHY Status: Chronic (7) COPD (chronic obstructive pulmonary disease) Status: Acute (8) Tobacco abuse Code(s): Z72.0 - TOBACCO USE Status: Acute (9) CHF (congestive heart failure) Code(s): I50.9 - HEART FAILURE, UNSPECIFIED Status: Acute (10) Hypokalemia Code(s): E87.6 - HYPOKALEMIA Status: Acute (11) Anemia Code(s): D64.9 - ANEMIA, UNSPECIFIED Status: Chronic QualifierTitle: Anemia type: unspecified type Qualified Code(s): D64.9 - Anemia, unspecified (12) Supratherapeutic INR Code(s): R79.1 - ABNORMAL COAGULATION PROFILE Status: Resolved (13) Constipation Code(s): K59.00 - CONSTIPATION, UNSPECIFIED Status: Acute - Plan Plan: (1) AICD discharge - Plan for interrogation of AICD - Initial read shows event of V-tach - Cardiology consulted, appreciate recs - Dr. Arredondo has consulted EP, appreciate recs - Dr. Andino completed successful ablation 10/11 (2) Afib - Continue home meds - Currently V-paced - INR pending (3) CAD (coronary artery disease) - Continue home meds (4) CKD (chronic kidney disease) stage 3, GFR 30-59 ml/min - IVF d/c - Monitor Creatinine (5) DM2 (diabetes mellitus, type 2) - HgbA1C 9.5 - Increased regimen for better control - Accuchecks - increased SSI to aggressive - Better control this am (6) Ischemic cardiomyopathy - Continue home meds (7) COPD (chronic obstructive pulmonary disease) - Duonebs - Continue home meds (8) Tobacco abuse - Counseled on cessation - Nicotine patch if needed (9) CHF (congestive heart failure) - Monitor fluid status closely - Continue home meds - Will give lasix after transfusion (10) Hypokalemia, resolved - resolved (11) Anemia - Likely due to CKD - Hgb fluctuated on previous admissions - Hgb this AM 7.4, s/p 1u pRBC - Cardiology concerned for pericardial bleed, echo ordered - FOBT pending - Multiple ecchymosis from previous fall (12) Constipation - Miralax - Milk of Mag - Encourage BM today to check FOBT Disposition: Stable, Patient would like to be placed in SNF for rehab upon discharge. <Rodo Landon - Last Filed: 10/13/17 07:33> (1) AICD discharge Code(s): Z45.02 - ENCNTR FOR ADJUST AND MGMT OF AUTOMATIC IMPLNTBL CARD DEFIB Status: Acute (2) Afib Code(s): I48.91 - UNSPECIFIED ATRIAL FIBRILLATION Status: Chronic Qualifiers: Atrial fibrillation type: chronic Qualified Code(s): I48.2 - Chronic atrial fibrillation (3) CAD (coronary artery disease) Code(s): I25.10 - ATHSCL HEART DISEASE OF [place] CORONARY ARTERY W/O ANG PCTRS Status: Chronic Qualifiers: Coronary Disease-Associated Artery/Lesion type: [place] artery [place] vs. 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: with alf use Diabetes mellitus complication status: with kidney complications Diabetes mellitus complication detail: with chronic kidney disease Chronic kidney disease stage : stage 3 (moderate) Qualified Code(s): E11.22 - Type 2 diabetes mellitus with diabetic chronic kidney disease; N18.3 - Chronic kidney disease, stage 3 ( moderate); N18.3 - Chronic kidney disease, stage 3 (moderate); Z79.4 - alf (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 of insulin; Z79.4 - intermediate manager (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 of insulin; Z79.4 - intermediate manager (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 of insulin; Z79.4 - alf (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 of insulin (6) Ischemic cardiomyopathy Code(s): I25.5 - ISCHEMIC CARDIOMYOPATHY Status: Chronic (7) COPD (chronic obstructive pulmonary disease) Status: Acute (8) Tobacco abuse Code(s): Z72.0 - TOBACCO USE Status: Acute (9) CHF (congestive heart failure) Code(s): I50.9 - HEART FAILURE, UNSPECIFIED Status: Acute (10) Hypokalemia Code(s): E87.6 - HYPOKALEMIA Status: Acute (11) Anemia Code(s): D64.9 - ANEMIA, UNSPECIFIED Status: Chronic Qualifiers: Anemia type: unspecified type Qualified Code(s): D64.9 - Anemia, unspecified <Mikel Morgan - Last Filed: 10/13/17 10:42> Attending Addendum - Attending Addendum Date/Time: 10/13/17 1034 I personally evaluated the patient and discussed the management with Dr. Landon. I agree with the History, Examination, Assessment and Plan documented above with any addition or exceptions noted below. Patient had clarisse marissa called just after the initiation of our bedside discussion with him. Patient had acute onset of increased shortness of breath and reported feeling very ill. He was noted to be in some mild respiratory distress. Pulse ox showed sats of 81% on 2L, and BP at that time was noted to be 80s/50s. His pulse was brisk and regular. Cardiac exam revealed normal rhythm and no muffled heart sounds. Lung exam showed diffuse decreased air entry , but no major wheezes or rales noted on my exam. His lower extremity edema is unchanged from previous exams. Abdominal exam nontender. Clarisse marissa called due to change in patient condition. CXR obtained shows no major change from previous , but I do note some possible new Curly B lines on imaging. Patient received 1 unit of blood yesterday that may have resulted in some mild fluid overload, but there is overtly no major evidence to support that. EP had some concern yesterday of possible pericardial bleeding and had requested echo that has not yet been done. air analysis engineering technician called for stat Echo and if this is occurring it could certainly contribute to currently symptoms. Patient was initiated on a breathing treatment, and sats improved to 100% on Venti mask and blood pressure improved somewhat to 109/62. ABG showed 7.47 PO2 40 PCO2 46, placing patient in new onset hypoxic respiratory failure. Decision made to transfer the patient to IM and initiate Bipap support. Pulmonology has been consulted. We have attempted to contact [employer] subscription crew leader to give input on potential for this pericardial process versus other process ongoing because of his recent EP procedure. Will closely monitor patient in IMCU. Confirmed with patient that he is a DNI. 30 minutes critical care provided in care and stabilization of this patient. <Mikel Morgan - Last Filed: 10/13/17 10:42>
[2017-10-13 07:04] LABS: Hemoglobin 7.4 g/dL (14.0-18.0); Platelet Count 237 thou/uL (130-400)
[2017-10-13] MEDS ORDERED: Milk Of Magnesia 30 ML UDCUP PO PRN (07:32)
[2017-10-13] MEDS: Mometasone/Formoterol 120 PUFF INHALER INH SCH ×2 (07:41→18:41)
[2017-10-13 08:22] LABS: INR-International Normal Ratio 1.7; PTT 40.6 SEC (22.9-36.1)
--- NOTE | 2017-10-13 10:17 | RAD ---
ONE VIEW CHEST: HISTORY: Shortness of breath. COMPARISON: 10/08/17. FINDINGS: Stable left-sided defibrillator. Stable cardiomegaly and atherosclerosis. Bibasilar pleural and par enchymal changes are noted. No pneumothorax. IMPRESSION: Congestive heart failure. POS: [facility]
[2017-10-13 10:18] LABS: Actual Bicarbonate (HCO3a) 32.5 mEq/L (22-26); CO2 Tension 45.6 mmHg (35.0-45.0); pH, Arterial 7.47 (7.35-7.45)
[2017-10-13 10:19] LABS: Base Excess (BEa) 8.1 mEq/L (0 (+/-) 2.5)
[2017-10-13 10:20] LABS: Hematocrit-ABG 26.6 % (42.0-52.0); Hemoglobin (Hb) 7.2 g/dL (14.0-18.0)
[2017-10-13 10:21] LABS: Analyzer IN Cardio OR; Calcium, Ionized 1.1 mmol/L (1.12-1.30); Puncture Site LRA
[2017-10-13] MEDS ORDERED: Lorazepam 2 MG/ML VIAL SLOW IVP PRN (10:25)
[2017-10-13] MEDS: Ferrous Sulfate 325 MG TAB PO SCH ×2 (10:41→20:48)
[2017-10-13] MEDS: Amiodarone 200 MG TAB PO SCH (10:41)
[2017-10-13] MEDS: Polyethylene Glycol 3350 17 GM Packet PO SCH (10:42)
[2017-10-13] MEDS ORDERED: Furosemide 40 MG/4 ML VIAL SLOW IVP SCH (10:45)
[2017-10-13] MEDS: Carvedilol 3.125 MG TAB PO SCH (10:49)
--- NOTE | 2017-10-13 10:52 | PRG ---
DATE OF SERVICE: 10/13/2017 Mr. Soto had a "code green" this morning. He became much more short of breath. His oxygen levels dr opped and the oxygen saturations in the 40s. He was moved on an emergency basis to the intermediate care unit. The patient continues to have difficulty breathing. He says he still feels he cannot breathe even with the CPAP. He is not having chest pain. PHYSICAL EXAMINATION: VITAL SIGNS: His blood pressure dropped into the 90s, systolic range. Pulse is in the 70s. LUNGS: Clear anteriorly and laterally. CARDIAC: Normal S1 and S2. ABDOMEN: Soft and nontender. EXTREMITIES: Left groin site, there is quite a bit of ecchymosis with hematoma. The blood counts have not drop further. The hemoglobin is 7.4. The arterial blood gas, pO2 is 46 with oxygen saturation 82 that was on oxygen. The pH 7.47 and hemo globin 7.2 on the blood gas. Chest x-ray looks like heart failure. ASSESSMENT: 1. Congestive heart failure, worsened. 2. Anemia. 3. Hematoma in the left groin, especially left thigh. PLAN: 1. Intravenous Lasix. 2. Stat echo has been ordered to look for any evidence of pericardial fluid. 3. Prognosis guarded. The patient has previously indicated Do Not Intubate status. We will treat a ggressively.
[2017-10-13 11:16] LABS: Glucose Accucheck Confirmation 164 mg/dl (83-110)
--- NOTE | 2017-10-13 13:36 | PDOC.EVN ---
Event Note - Event Note Event Note: Barrera Schmidt was called to patient's room shortly before 10:00 AM. Patient acutely became SOB and had O2 saturation of 76% on Room Air. A stat ECHO, ABG, CXR was ordered at that time. Patient was also placed on Ventimask with improvement of O2 sats into 90s. Patient received a Duoneb and was transferred to the [facility] for BIPAP therapy. Patient was then seen by Dr. Koroma, Cardiology, and was given 40 mg IV lasix. He was continued on BIPAP therapy for now. Dr. Steward, Pulmonology, was consulted and recommended additional blood transfusions. The patient was set up for 2u pRBCs and will receive those throughout the day. The patient continues to state that he does not want to be intubated, but will accept BIPAP therapy. He will be monitored closely throughout the day. <Rodo Landon - Last Filed: 10/13/17 13:24> Attending Addendum - Attending Addendum Date/Time: 10/13/17 1510 I personally evaluated the patient and discussed the management with Dr. Landon. I agree with the History, Examination, Assessment and Plan documented above with any addition or exceptions noted below. Agree with above. Please see my addendum to progress note from this morning for further details. 30 minutes critical time spent assessing and stabilizing patient. <Mikel Morgan - Last Filed: 10/13/17 15:11>
[2017-10-13] MEDS ORDERED: Potassium Chloride 20 MEQ TAB PO SCH (18:00)
[2017-10-13] MEDS: Insulin Regular 300 UNITS/3 ML VIAL SC PRN (18:02)
[2017-10-13 19:56] LABS: Hemoglobin 8.6 g/dL (14.0-18.0); Platelet Count 269 thou/uL (130-400)
[2017-10-13] MEDS ORDERED: Furosemide 20 MG/2 ML VIAL SLOW IVP SCH (20:00)
[2017-10-13] MEDS: Simvastatin 40 MG TAB PO SCH (20:48)
[2017-10-13] MEDS: Insulin Glargine 60 UNITS in Pre-Filled Syringe 1 EACH SC SCH (20:51)
--- NOTE | 2017-10-13 23:44 | CON ---
DATE OF CONSULTATION: 10/13/2017 HISTORY OF PRESENT ILLNESS: Charles is a 72-year-old male, transferred to the Intermediate Care Unit today. He was transiently placed on BiPAP. He received a dose of Lasix. He clinically improved and asked for the BiPAP to be removed. He was actually in absolutely no distress when I saw him. He is status post fall and has extensive bruising to his right lateral and posterior thigh. PAST MEDICAL HISTORY: Remarkable for coronary stenting, ischemic cardiomyopathy with a defibrillator in place, atrial fibrillation, lipid disorder, diabetes, hypertension, ventricular tachycardia and ventricular fibrillation in the past, tonsillectomy and an myocardial infarction in the past. Prior to admission, he was on Zocor, Lasix, NovoLog, Levemir, Symbicort, Protonix, iron, amiodarone, digoxin, Coreg, and aspirin. FAMILY HISTORY: Negative for lung disease in early age. SOCIAL HISTORY: He denies smoking or drinking. REVIEW OF SYSTEMS: Otherwise negative. He says that he has been told he has COPD in the past by his primary care physician and thinks he has had breathing tests in the past, but he is not sure. In all of the old records in the whole computer system, all of his contact has been with the cardiologists. There is no pulmonary evaluation in the hospital in the past. I did find a note that said he has had a CVA in the past. He was also reported to have quit smoking in 2008. He is not a daily drinker. REVIEW OF SYSTEMS: 10 point review otherwise negative. PHYSICAL EXAMINATION: GENERAL: He is in no distress. VITAL SIGNS: He is afebrile, heart rate is 74, respiratory rate is 16, oximetry is 100% on 2-liter cannula. HEENT: Pupils are equal. Sclerae are anicteric. NECK: Supple. No lymphadenopathy. LUNGS: Remarkable for fine crackles at his bases. He is not wheezing. HEART: Regular rhythm. S1 and S2 are normal. ABDOMEN: Soft and nontender. EXTREMITIES: Without clubbing, cyanosis, or edema. NEUROLOGIC: Grossly nonfocal. LABORATORY AND X-RAY FINDINGS: Hemoglobin is 7.2 at midnight, 7.4 at 651. He has been transfused this morning. White count 9.7, platelets 232,000. No new electrolytes today. Blood gas showed a pH of 7.47, pCO2 of 45, pO2 of 46 earlier on 2 liters. Chest radiograph reviewed by me shows pulmonary edema that is mild. IMPRESSION: 1. Congestive heart failure, improved. 2. Anemia, ? blood loss related, not felt to have had retroperitoneal bleed at least clinically at this point in time. 3. Left groin and thigh hematoma. Thigh hematomas, may be related to the fall. Lasix has helped today. The transfusion will probably help as well. We just need to watch him closely for recurrence of his pulmonary edema. A 50-minute consult, greater than 50% of the time was spent in coordinating care on the unit. FANY
[2017-10-14] MEDS: Acetaminophen 325 MG TAB PO PRN (01:05)
[2017-10-14 04:46] LABS: #Eosinphils 0.2 thou/uL (0.0-0.7); #Lymphocytes 1.4 thou/uL (1.20-3.40); #Monocytes 1.2 thou/uL (0.11-0.59); #Neutrophils 7.9 thou/uL (1.40-6.50); %Basophils 0.2 % (0.0-1.0); %Eosinophils 1.8 % (0.0-10.0); %Monocytes 10.8 % (0.0-10.0); %Neutrophils 74.2 % (42.0-75.0); Hemoglobin 8.3 g/dL (14.0-18.0); Mean Corpuscular Hemoglobin 31.1 pg (27.0-31.0); Mean Corpuscular Volume 94.2 fl (80.0-94.0); Mean Platelet Volume 6.9 fL (7.4-10.4); Platelet Count 275 thou/uL (130-400); RBC Distribution Width 15.6 % (11.5-14.5); Red Blood Cell (RBC) Count 2.66 mill/uL (4.70-6.10); White Blood Cell (WBC) Count 10.7 thou/uL (4.8-10.8)
[2017-10-14 05:02] LABS: Anion Gap 12 mmol/L (10-20); BUN (Urea Nitrogen) 40 mg/dL (8.4-25.7); Calc. Creatinine Clearance 55 mL/min (70-130); Calcium 8.4 mg/dL (7.8-10.44); Carbon Dioxide 34 mmol/L (23-31); Chloride 88 mmol/L (98-107); Estimated GFR-MDRD 38; Glucose 239 mg/dL (83-110); Sodium 130 mmol/L (136-145)
[2017-10-14] MEDS: Insulin Regular 300 UNITS/3 ML VIAL SC PRN ×2 (05:35→12:12)
[2017-10-14] MEDS: Mometasone/Formoterol 120 PUFF INHALER INH SCH ×2 (06:29→19:32)
--- NOTE | 2017-10-14 07:13 | PDOC.FM ---
- Subjective Subjective: Patient feels better. No more SOB, his legs feel better. He does complain of a congested nose. No other complaints this morning. - Objective Vital Signs & Weight: Vital Signs (12 hours) Temp Pulse Resp BP Pulse Ox 10/14/17 06:27 70 16 93 L 10/14/17 03:51 97.6 F 69 20 117/52 L 100 10/14/17 03:23 70 16 99 10/14/17 00:00 70 18 126/54 L 97 10/13/17 22:19 74 16 99 10/13/17 20:00 97.7 F 73 20 120/49 L 99 Weight Admit Weight 107.53 kg Weight 108.318 kg I&O: 10/13/17 10/14/17 10/15/17 06:59 06:59 06:59 Intake Total 830 1189 Output Total 2925 Balance 830 -1736 Result Diagrams: 10/14/17 03:38 10/14/17 03:38 <Rodo Landon - Last Filed: 10/14/17 07:11> - Objective Vital Signs & Weight: Vital Signs (12 hours) Temp Pulse Resp BP Pulse Ox 10/14/17 10:20 67 18 96 10/14/17 08:00 97.7 F 70 24 H 113/47 L 97 10/14/17 06:27 70 16 93 L 10/14/17 03:51 97.6 F 69 20 117/52 L 100 10/14/17 03:23 70 16 99 10/14/17 00:00 70 18 126/54 L 97 Weight Admit Weight 107.53 kg Weight 108.318 kg I&O: 10/13/17 10/14/17 10/15/17 06:59 06:59 06:59 Intake Total 830 1189 Output Total 2925 Balance 830 -1736 Result Diagrams: 10/14/17 03:38 10/14/17 03:38 <Mikel Morgan - Last Filed: 10/14/17 10:28> Phys Exam - Physical Examination HEENT: moist MMs Neck: no nodes Respiratory: no wheezing, clear to auscultation bilateral Cardiovascular: RRR, no significant murmur Gastrointestinal: soft, non-tender, no distention, positive bowel sounds Musculoskeletal: pulses present, edema present Neurological: non-focal, normal sensation, moves all 4 limbs left leg hematoma. multiple ecchymosis upper and lower extremities Psychiatric: normal affect, A&O x 3 Skin: no rash <Rodo Landon - Last Filed: 10/14/17 07:11> Dx/Plan (1) AICD discharge Code(s): Z45.02 - ENCNTR FOR ADJUST AND MGMT OF AUTOMATIC IMPLNTBL CARD DEFIB Status: Acute (2) Afib Code(s): I48.91 - UNSPECIFIED ATRIAL FIBRILLATION Status: Chronic QualifierTitle: Atrial fibrillation type: chronic Qualified Code(s): I48.2 - Chronic atrial fibrillation (3) CAD (coronary artery disease) Code(s): I25.10 - ATHSCL HEART DISEASE OF [place] CORONARY ARTERY W/O ANG PCTRS Status: Chronic QualifierTitle: Coronary Disease-Associated Artery/Lesion type: [place] artery [place] vs. transplanted heart: [place] heart Associated angina: without angina Qualified Code(s): I25.10 - Atherosclerotic heart disease of [place] coronary artery without angina pectoris (4) CKD (chronic kidney disease) stage 3, GFR 30-59 ml/min Status: Chronic (5) DM2 (diabetes mellitus, type 2) Status: Chronic QualifierTitle: Diabetes mellitus manager intermediate insulin use: with shelter use Diabetes mellitus complication status: with kidney complications Diabetes mellitus complication detail: with chronic kidney disease Chronic kidney disease stage: stage 3 (moderate) Qualified Code(s): E11.22 - Type 2 diabetes mellitus with diabetic chronic kidney disease; N18.3 - Chronic kidney disease, stage 3 (moderate); N18.3 - Chronic kidney disease, stage 3 (moderate) ; Z79.4 - [facility] (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 of insulin; Z79.4 - watermelon harvesting supervisor (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 of insulin; Z79.4 - [facility] (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 of insulin; Z79.4 - [facility] ( 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 of insulin (6) Ischemic cardiomyopathy Code(s): I25.5 - ISCHEMIC CARDIOMYOPATHY Status: Chronic (7) COPD (chronic obstructive pulmonary disease) Status: Acute (8) Tobacco abuse Code(s): Z72.0 - TOBACCO USE Status: Acute (9) CHF (congestive heart failure) Code(s): I50.9 - HEART FAILURE, UNSPECIFIED Status: Acute (10) Hypokalemia Code(s): E87.6 - HYPOKALEMIA Status: Acute (11) Anemia Code(s): D64.9 - ANEMIA, UNSPECIFIED Status: Chronic QualifierTitle: Anemia type: unspecified type Qualified Code(s): D64.9 - Anemia, unspecified (12) Supratherapeutic INR Code(s): R79.1 - ABNORMAL COAGULATION PROFILE Status: Resolved (13) Constipation Code(s): K59.00 - CONSTIPATION, UNSPECIFIED Status: Acute (14) CHF exacerbation Code(s): I50.9 - HEART FAILURE, UNSPECIFIED Status: Acute - Plan Plan: (1) AICD discharge - Plan for interrogation of AICD - Initial read shows event of V-tach - Cardiology consulted, appreciate recs - Dr. Arredondo has consulted EP, appreciate recs - Dr. Andino completed successful ablation 10/11 (2) Afib - Continue home meds - Currently V-paced - Coumadin stopped from yesterday's CHF exacerbation (3) CAD (coronary artery disease) - Continue home meds (4) CKD (chronic kidney disease) stage 3, GFR 30-59 ml/min - IVF d/c - Monitor Creatinine (5) DM2 (diabetes mellitus, type 2) - HgbA1C 9.5 - Increased regimen for better control - Accuchecks - increased SSI to aggressive - Will increase regimen for better control. (6) Ischemic cardiomyopathy - Continue home meds (7) COPD (chronic obstructive pulmonary disease) - Duonebs - Continue home meds (8) Tobacco abuse - Counseled on cessation - Nicotine patch if needed (9) CHF (congestive heart failure) - Monitor fluid status closely - Continue home meds - Will give lasix after transfusion (10) Hypokalemia, resolved - resolved (11) Anemia - Likely due to CKD - Hgb fluctuated on previous admissions - Hgb this AM 8.3, down from 8.6, s/p 1u pRBC - ECHO shows no pericardial bleed - No signs of retroperitoneal bleed at this time. - FOBT pending - Multiple ecchymosis from previous fall (12) Constipation - Miralax - Milk of Mag - Encourage BM today to check FOBT - Suppository this AM. (13) CHF exacerbation - Likely cause of Code green yesterday - Improved after lasix - Will monitor closely for signs of pulmonary edema Disposition: Stable, Patient would like to be placed in SNF for rehab upon discharge. <Rodo Landon - Last Filed: 10/14/17 07:11> (1) AICD discharge Code(s): Z45.02 - ENCNTR FOR ADJUST AND MGMT OF AUTOMATIC IMPLNTBL CARD DEFIB Status: Acute (2) Afib Code(s): I48.91 - UNSPECIFIED ATRIAL FIBRILLATION Status: Chronic Qualifiers: Atrial fibrillation type: chronic Qualified Code(s): I48.2 - Chronic atrial fibrillation (3) CAD (coronary artery disease) Code(s): I25.10 - ATHSCL HEART DISEASE OF [place] CORONARY ARTERY W/O ANG PCTRS Status: Chronic Qualifiers: Coronary Disease-Associated Artery/Lesion type: [place] artery [place] vs. transplanted heart: [place] heart Associated angina: without angina Qualified Code(s): I25.10 - Atherosclerotic heart disease of [place] coronary artery without angina pectoris (4) CKD (chronic kidney disease) stage 3, GFR 30-59 ml/min Status: Chronic (5) DM2 (diabetes mellitus, type 2) Status: Chronic Qualifiers: Diabetes mellitus shelter insulin use: with shelter use Diabetes mellitus complication status: with kidney complications Diabetes mellitus complication detail: with chronic kidney disease Chronic kidney disease stage : stage 3 (moderate) Qualified Code(s): E11.22 - Type 2 diabetes mellitus with diabetic chronic kidney disease; N18.3 - Chronic kidney disease, stage 3 ( moderate); N18.3 - Chronic kidney disease, stage 3 (moderate); Z79.4 - 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 harvesting supervisor (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 of insulin; Z79.4 - watermelon harvesting supervisor (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 of insulin; Z79.4 - watermelon harvesting supervisor (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 of insulin; Z79.4 - watermelon harvesting supervisor (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 of insulin (6) Ischemic cardiomyopathy Code(s): I25.5 - ISCHEMIC CARDIOMYOPATHY Status: Chronic (7) COPD (chronic obstructive pulmonary disease) Status: Acute (8) Tobacco abuse Code(s): Z72.0 - TOBACCO USE Status: Acute (9) CHF (congestive heart failure) Code(s): I50.9 - HEART FAILURE, UNSPECIFIED Status: Acute (10) Hypokalemia Code(s): E87.6 - HYPOKALEMIA Status: Acute (11) Anemia Code(s): D64.9 - ANEMIA, UNSPECIFIED Status: Chronic Qualifiers: Anemia type: unspecified type Qualified Code(s): D64.9 - Anemia, unspecified <Mikel Morgan R - Last Filed: 10/14/17 10:28> Attending Addendum - Attending Addendum Date/Time: 10/14/17 1025 I personally evaluated the patient and discussed the management with Dr. Landon. I agree with the History, Examination, Assessment and Plan documented above with any addition or exceptions noted below. Patient with significant improvement since yesterday. I expect that his diuresis made the biggest difference. He has received 1 u PRBCs as well, and we will continue diuresis to prevent fluid overload as best as possible. Overall, his respiratory status is improved, and his HR continues to be appropriate. Still evaluating where his blood loss is occurring, but seems possibly groin hematoma at this time. Will work to obtain bowel movement in this patient today. He has been taken off all anticoagulation due to his bleeding risk, INR 1.7. Labs improved and currently consistent with CHF. <Mikel Morgan R - Last Filed: 10/14/17 10:28>
[2017-10-14] MEDS ORDERED: Insulin Glargine 60 UNITS in Pre-Filled Syringe 1 EACH SC SCH (07:16)
[2017-10-14] MEDS: Polyethylene Glycol 3350 17 GM Packet PO SCH (08:38)
[2017-10-14] MEDS: Ferrous Sulfate 325 MG TAB PO SCH ×2 (08:38→21:01)
[2017-10-14] MEDS: Fleet Enema 133 ML BOT PR SCH ×2 (08:38→15:47)
[2017-10-14] MEDS: Amiodarone 200 MG TAB PO SCH (08:38)
[2017-10-14] MEDS: Furosemide 20 MG TAB PO SCH (08:55)
[2017-10-14] MEDS: Fluticasone Propionate Nasal Spray 16 gm Bottle NASAL SCH (08:55)
[2017-10-14] MEDS ORDERED: Sodium Chloride 0.65% Nasal 44 ML BOT EA NARE PRN (09:42)
[2017-10-14] MEDS ORDERED: Bisacodyl 5 MG TAB PO PRN (11:14)
--- NOTE | 2017-10-14 11:50 | PRG ---
DATE OF SERVICE: 10/14/2017 SUBJECTIVE: Mr. Soto looks dramatically better today. He is not short of breath, in fact he does ev en in need of oxygen. He is having no chest pain, he is not short of breath. PHYSICAL EXAMINATION: VITAL SIGNS: Blood pressure 113/47, pulse 70. LUNGS: Clear anteriorly and laterally. CARDIAC: Normal S1, S2. ABDOMEN: Soft, nontender. EXTREMITIES: There is some hematoma in the left groin, but it has improved. ASSESSMENT: 1. Congestive heart failure, systolic, acute on chronic, dramatically better today. 2. Recent EP procedure. 3. Groin hematoma. This looks stable, better today and hemoglobin is up to 8.3 following a unit of packed red cells. PLAN: 1. We will go and do ultrasound of both groins. 2. Carvedilol on hold. 3. Hold aspirin today, resume tomorrow. 4. It should be okay to resume the Coumadin at [address] Arredondo will resume care tom[place] donna
[2017-10-14] MEDS: HumaLOG 300 UNITS/3 ML VIAL SC SCH ×2 (12:10→17:06)
--- NOTE | 2017-10-14 12:42 | ULT ---
LIMITED SONOGRAPHIC EVALUATION OF BILATERAL INGUINAL REGIONS: HISTORY: Previous EP study, groin hematoma. FINDINGS: Limited sonographic evaluation of each inguinal region was performed. Color flow and Doppler evaluation demonstrates flow within the bilateral common femoral arteries and veins. There is no fluid collection seen within either inguinal region to suggest a hematoma. No en larged lymph nodes or masses seen in either inguinal region. IMPRESSION: No fluid collection seen in the inguinal regions bilaterally to suggest a hematoma. Flow is seen wit hin the bilateral common femoral arteries and veins. POS: KIELH
[2017-10-14] MEDS ORDERED: Simethicone Chewable 80 MG TAB PO PRN (14:47)
--- NOTE | 2017-10-14 15:26 | PRG ---
DATE OF SERVICE: 10/14/2017 SUBJECTIVE: Mr. Soto has no complaints. OBJECTIVE: VITAL SIGNS: He is afebrile, heart rate 70, respiratory rate 24, oximetry is 97 on 2 liters. He is up a little bit this morning. He was weaned to room air. He is 96 on room air. LUNGS: Clear. HEART: Regular rhythm. ABDOMEN: Soft. EXTREMITIES: Without asymmetry. NEUROLOGIC: Nonfocal. He still has a hematoma in his right hip IMPRESSION: 1. Systolic heart failure, improved. 2. Recent electrophysiology procedure. 3. Groin hematoma. 4. Blood loss anemia, status post transfusion. PLAN: Continue supportive care. He can move out of the Intermediate Care Unit in my opinion. Cultu res have been reviewed from 10/08/2017. They remain negative for 5 days.
[2017-10-14] MEDS: traMADol HCl 50 MG TAB PO PRN (15:52)
[2017-10-14] MEDS ORDERED: Warfarin Sodium 3 MG TAB PO SCH (17:00)
[2017-10-14] MEDS ORDERED: Magnesium Citrate 300 ML BOT PO SCH (20:00)
[2017-10-14] MEDS ORDERED: INSULIN GLARGINE SC SCH (21:00)
[2017-10-14] MEDS: Simvastatin 40 MG TAB PO SCH (21:01)
--- NOTE | 2017-10-14 21:22 | ADD-PRG ---
DATE OF SERVICE: 10/13/2017 ADDENDUM Mr. Soto looks dramatically better. He is breathing easily. He is on nasal cannula. Echocardiogram did not show pericardial effusion, but severely depressed left ventricular function. The patient is breathing comfortably, has received 1 unit of packed red blood cells. ASSESSMENT: 1. Abrupt worsening of respiratory status related to heart failure. 2. Anemia, appears stable. 3. Hematoma in the left leg appears stable. PLAN: Given a dose of Lasix tonight. Check CBC tomorrow. Does not appear to be actively bleeding.
[2017-10-15 04:55] LABS: INR-International Normal Ratio 1.9; Prothrombin Time 22.6 SEC (12.0-14.7)
--- NOTE | 2017-10-15 06:15 | PDOC.FM ---
- Subjective Subjective: Patient had a good night. He was not requiring oxygen and is not feeling SOB. His nasal congestion and MSK pain is improved today. No other complaints today. - Objective Vital Signs & Weight: Vital Signs (12 hours) Temp Pulse Pulse Pulse Resp BP BP 10/15/17 06:07 70 18 10/15/17 04:00 97.2 F L 70 21 H 10/15/17 02:29 71 16 10/15/17 02:08 70 20 10/15/17 00:00 97.6 F 70 20 10/14/17 22:40 71 16 10/14/17 22:30 71 10/14/17 20:00 97.6 F 70 21 H 10/14/17 19:45 97.6 F 70 21 H 10/14/17 19:31 70 16 10/14/17 18:28 65 69 122/54 L 121/56 L BP BP Pulse Ox Pulse Ox Pulse Ox 10/15/17 06:07 103/46 L 94 L 10/15/17 04:00 111/56 L 100 10/15/17 02:29 100 10/15/17 02:08 125/62 100 10/15/17 00:00 125/52 L 99 10/14/17 22:40 98 10/14/17 22:30 121/65 10/14/17 20:00 100 10/14/17 19:45 100 10/14/17 19:31 100 10/14/17 18:28 159/62 H 100 99 Weight Admit Weight 107.53 kg Weight 106.197 kg I&O: 10/13/17 10/14/17 10/15/17 06:59 06:59 06:59 Intake Total 830 1189 2390 Output Total 7111 7377 Balance 334 -6280 -9208 Result Diagrams: 10/15/17 04:31 10/14/17 03:38 Phys Exam - Physical Examination Constitutional: NAD HEENT: moist MMs Neck: no nodes Respiratory: no wheezing, clear to auscultation bilateral Cardiovascular: RRR, no significant murmur Gastrointestinal: soft, non-tender, no distention, positive bowel sounds Musculoskeletal: edema present multiple ecchymosis Neurological: non-focal, normal sensation, moves all 4 limbs Lymphatic: no nodes Psychiatric: normal affect, A&O x 3 Skin: no rash Dx/Plan (1) AICD discharge Code(s): Z45.02 - ENCNTR FOR ADJUST AND MGMT OF AUTOMATIC IMPLNTBL CARD DEFIB Status: Acute (2) Afib Code(s): I48.91 - UNSPECIFIED ATRIAL FIBRILLATION Status: Chronic Qualifiers: Atrial fibrillation type: chronic Qualified Code(s): I48.2 - Chronic atrial fibrillation (3) CAD (coronary artery disease) Code(s): I25.10 - ATHSCL HEART DISEASE OF [place] CORONARY ARTERY W/O ANG PCTRS Status: Chronic Qualifiers: Coronary Disease-Associated Artery/Lesion type: [place] artery [place] vs. transplanted heart: [place] heart Associated angina: without angina Qualified Code(s): I25.10 - Atherosclerotic heart disease of [place] coronary artery without angina pectoris (4) CKD (chronic kidney disease) stage 3, GFR 30-59 ml/min Status: Chronic (5) DM2 (diabetes mellitus, type 2) Status: Chronic Qualifiers: Diabetes mellitus detention insulin use: with middle or intermediate school principal use Diabetes mellitus complication status: with kidney complications Diabetes mellitus complication detail: with chronic kidney disease Chronic kidney disease stage : stage 3 (moderate) Qualified Code(s): E11.22 - Type 2 diabetes mellitus with diabetic chronic kidney disease; N18.3 - Chronic kidney disease, stage 3 ( moderate); N18.3 - Chronic kidney disease, stage 3 (moderate); Z79.4 - intermediate school teacher (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 of insulin; Z79.4 - custodial (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 of insulin; Z79.4 - custodial (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 of insulin; Z79.4 - custodial (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 of insulin (6) Ischemic cardiomyopathy Code(s): I25.5 - ISCHEMIC CARDIOMYOPATHY Status: Chronic (7) COPD (chronic obstructive pulmonary disease) Status: Acute (8) Tobacco abuse Code(s): Z72.0 - TOBACCO USE Status: Acute (9) CHF (congestive heart failure) Code(s): I50.9 - HEART FAILURE, UNSPECIFIED Status: Acute (10) Hypokalemia Code(s): E87.6 - HYPOKALEMIA Status: Acute (11) Anemia Code(s): D64.9 - ANEMIA, UNSPECIFIED Status: Chronic Qualifiers: Anemia type: unspecified type Qualified Code(s): D64.9 - Anemia, unspecified (12) Supratherapeutic INR Code(s): R79.1 - ABNORMAL COAGULATION PROFILE Status: Resolved (13) Constipation Code(s): K59.00 - CONSTIPATION, UNSPECIFIED Status: Acute (14) CHF exacerbation Code(s): I50.9 - HEART FAILURE, UNSPECIFIED Status: Acute - Plan Plan: (1) AICD discharge - Plan for interrogation of AICD - Initial read shows event of V-tach - Cardiology consulted, appreciate recs - Dr. Arredondo has consulted EP, appreciate recs - Dr. Andino completed successful ablation 10/11 (2) Afib - Continue home meds - Currently V-paced, with underlying A-fib rhythm - Coumadin restarted (3) CAD (coronary artery disease) - Continue home meds (4) CKD (chronic kidney disease) stage 3, GFR 30-59 ml/min - IVF d/c - Stable (5) DM2 (diabetes mellitus, type 2) - HgbA1C 9.5 - Increased regimen for better control - Accuchecks - increased SSI to aggressive (6) Ischemic cardiomyopathy - Continue home meds (7) COPD (chronic obstructive pulmonary disease) - Duonebs - Continue home meds (8) Tobacco abuse - Counseled on cessation - Nicotine patch if needed (9) CHF (congestive heart failure) - Monitor fluid status closely - Continue home meds - Will give lasix after transfusion (10) Hypokalemia, resolved - resolved (11) Anemia - Likely due to CKD - Hgb fluctuated on previous admissions - H & H 9.1 & 28.2 this AM. - ECHO shows no pericardial bleed - Lower extremity US shows no hematoma - No signs of retroperitoneal bleed at this time. - FOBT negative - Multiple ecchymosis from previous fall (12) Constipation - Miralax - Milk of Mag (13) CHF exacerbation - Likely cause of Code green yesterday - Improved after lasix, will continue home lasix dose - Will monitor closely for signs of pulmonary edema Disposition: Stable, Will transfer patient back to telemetry and prepare for discharge.
[2017-10-15 06:21] LABS: Hemoglobin 9.1 g/dL (14.0-18.0); Platelet Count 290 thou/uL (130-400)
--- NOTE | 2017-10-15 07:48 | PDOC.CTH ---
Cardiology Progress Note - Subjective Feels much better today. Pt was transferred to IMCU for respiratory distress over the weekend. - Objective Vital Signs Temp Pulse Resp BP Pulse Ox 10/15/17 07:26 97.8 F 83 20 110/51 L 93 L 10/15/17 06:07 70 18 103/46 L 94 L 10/15/17 04:00 97.2 F L 70 21 H 111/56 L 100 10/15/17 02:29 71 16 100 10/15/17 02:08 70 20 125/62 100 10/15/17 00:00 97.6 F 70 20 125/52 L 99 10/14/17 22:40 71 16 98 10/14/17 22:30 71 121/65 10/14/17 20:00 97.6 F 70 21 H 100 Admit Weight 237 lb 1 oz Weight 234 lb 2 oz 10/14/17 10/15/17 10/16/17 06:59 06:59 06:59 Intake Total 1189 2390 Output Total 2925 3975 250 Balance -1736 -1585 -250 - Physical Examination General/Neuro: alert & oriented x3, NAD Neck: carotid US brisk, no JVD present Lungs: unlabored respirations Heart: PMI normal Abdomen: no HSM, NT/ND, soft Extremities: + femoral B - Labs Result Diagrams: 10/15/17 04:31 10/14/17 03:38 Troponin/CKMB CK-MB (CK-2) 2.3 ng/mL (0-6.6) 10/08/17 20:54 Troponin I 0.027 ng/mL (< 0.028) 10/08/17 20:54 - Assessment/Plan 1. Ischemic cardiomyopathy 2. ICD discharge secondary to afib with RVR 3. s/p AVNA 4. Respiratory distress 3. s/p ICD 4. Anemia Anemia has stablilized after 2 units of PRBS Pt with episodes of SOB, acute over weekend requiring transfer to MICU; improving continue current treatment. Pt will likely need placement.
[2017-10-15] MEDS: Mometasone/Formoterol 120 PUFF INHALER INH SCH (08:04)
[2017-10-15] MEDS: HumaLOG 300 UNITS/3 ML VIAL SC SCH ×2 (08:52→14:27)
[2017-10-15] MEDS: Ferrous Sulfate 325 MG TAB PO SCH (08:52)
[2017-10-15] MEDS: Furosemide 20 MG TAB PO SCH (08:52)
[2017-10-15] MEDS: Fluticasone Propionate Nasal Spray 16 gm Bottle NASAL SCH (08:53)
[2017-10-15] MEDS: Amiodarone 200 MG TAB PO SCH (08:53)
[2017-10-15] MEDS: Polyethylene Glycol 3350 17 GM Packet PO SCH (08:53)
[2017-10-15 12:13] VITALS: TEMP 98.5
--- NOTE | 2017-10-15 14:26 | ADD-PRG ---
DATE OF SERVICE: 10/15/2017 ADDENDUM SUBJECTIVE: Mr. Soto is resting quietly in bed, in no distress. He is not short of breath. He has recovered completely from his mild exacerbation of heart failure and is resting quietly. He also has significant COPD and is on triple therapy with Symbicort and Spiriva. His INR is not quite therapeu tic at 1.9. I feel it would be okay to discharge him to continue monitoring and adjusting his Coumad in to obtain an INR of between 2 and 3. In the event, clinically he is stable and ready for transfer to nursing facility.
[2017-10-15] MEDS: Acetaminophen 325 MG TAB PO PRN (15:08)
[2017-10-15 16:24] VITALS: BP 123/58
--- NOTE | 2017-10-16 03:09 | DIS-2 ---
DATE OF ADMISSION: 10/09/2017 DATE OF DISCHARGE: 10/15/2017 RESIDENT: Dr. Landon ADMITTING ATTENDING: Dr. Morgan. DISCHARGE ATTENDING: Dr. Coffman. CONSULTS: Cardiology, Dr. Arredondo; Electrophysiology, Dr. Andino; Pulmonology, Dr. Steward; case management; CV team; PT evaluation and treatment; and wound care. PROCEDURES: The patient underwent a chest x-ray on 10/08/2017 that showed stable cardiomegaly and left ICD, atherosclerosis of aorta with ectasia. The patient underwent an EP study and radiofrequency ablation with Dr. Andino on 10/11/2017 that was successful AV alcon ablation. The patient also underwent a chest x-ray on 10/13/2017 that showed congestive heart failure. The patient underwent an echocardiogram on 10/13/2017 that showed left ventricle size is moderately increased with the ejection fraction is visually estimated at 25% to 30%, left atrium is severely dilated, moderate mitral regurgitation is present, structurally normal aortic valve with no significant stenosis or regurgitation. Mild tricuspid regurgitation. Moderately elevated pulmonary artery pressure. The patient also underwent a lower extremity ultrasound on 10/14/2017 that showed no fluid collection seen in the inguinal regions bilaterally to suggest a hematoma. Flow is seen within the bilateral common femoral arteries and veins. PRIMARY DIAGNOSES: 1. AICD discharge. 2. Atrial fibrillation. 3. Coronary artery disease. 4. Chronic kidney disease, stage 3. 5. Diabetes mellitus, type 2. 6. Ischemic cardiomyopathy. 7. Chronic obstructive pulmonary disease. 8. Tobacco abuse. 9. Congestive heart failure exacerbation. 10. Hypokalemia. 11. Anemia. 12. Supratherapeutic INR. 13. Constipation. DISCHARGE MEDICATIONS: 1. Simvastatin 80 mg p.o. q.p.m. 2. Aspirin 81 mg p.o. daily. 3. Warfarin 3 mg p.o. daily. 4. Carvedilol 3.125 mg p.o. b.i.d. 5. Amiodarone 200 mg p.o. daily. 6. Ferrous sulfate 324 mg p.o. b.i.d. 7. Symbicort 80/4.5 one puff inhaled b.i.d. 30 days. 8. DuoNeb 3 mL nebulized q.i.d. p.r.n. 9. Protonix 40 mg p.o. daily. 10. Furosemide 40 mg p.o. b.i.d. 11. Insulin glargine 70 units subcu at bedtime. 12. Tramadol 50 mg p.o. q.6 hours p.r.n. 13. Lisinopril 2.5 mg p.o. daily. DISCONTINUED MEDICATIONS: Insulin detemir 32 units subcu q.a.m. and metolazone 5 mg p.o. daily. HISTORY OF PRESENT ILLNESS AND HOSPITAL COURSE: This is a 72-year-old male who presents for multiple complaints. The patient states that one week ago he began to have lower extremity swelling. He states that his PCP changed his food pills around at that time. He states that his leg swelling has varied. He also states that yesterday he got up and walked to the bathroom. After he was walking back from the bathroom, he began to feel dizzy and lightheaded. He then states he lost consciousness and went down. While he was on the floor, he states he must have hit his leg and feet, but not his head. He also notes while on the floor that his AICD feel fired. He then felt better. He woke up this morning with pain in his legs which he thinks from the fall and got a call from his pacemaker company saying that his AICD went off. He then called the EMS for transport. During this hospitalization, the patient had some notable laboratory values of a hemoglobin initially of 8.2, that acutely worsened after day of ablation to 6.8. He was then transfused with 2 units of blood and his hemoglobin on day of discharge was 9.1. The patient also on admission had an INR of 6.1. He was subsequently given vitamin K with his INR decreasing now to 1.4. His Coumadin was then restarted and on day of discharge, his INR was 1.9. The patient's blood glucose is very poorly controlled at home. We increased his regimen here with a slightly better control where his blood glucose ranged from 88-162 on day of discharge. The patient was seen by Cardiology, Dr. Arredondo on 2017 that recommended reloading amiodarone therapy. We would also like to consult Electrophysiology for further recommendations. Dr. Andino with Electrophysiology saw the patient on 10/09/2017 and stated discussion of an AV alcon ablation because of his suboptimal left ventricle placing and his recurrence into atrial fibrillation, heart failure exacerbations. He also recommended an inclusion of a SETTER UP/ICD with suboptimal left ventricle pacing. The AV node ablation would allow for improved left ventricle pacing and therefore allow the patient to receive maximum benefit from cardiac resynchronization therapies. The patient then underwent the ablation on 2017 after his INR became subtherapeutic to decrease bleeding episodes. Stated that the procedure went well and was successful with no further AV alcon conduction was remained. The patient then was recovering well and then had the acute blood loss anemia that was treated with a unit of blood. Then, on 10/13/2017, the patient acutely became short of breath and had a code green called on him. The code green was called because the patient began to have an oxygen saturation of 76% on room air. A stat echo, ABG, and chest x- ray were ordered. The chest x-ray showed fluid overload state and echo was basically unchanged from previous, and his ABG did show a pH of 7.47, pO2 of 46 , and a pCO2 of 45.6. The patient was then restarted on his home diuretic dose with rapid improvement of his symptoms. The patient was also given 1 unit of packed red blood cells at that time with improvement of his symptoms, as well. The patient also attempted to get a FOBT upon admission to the hospital to understand if he had a significant bleeding source; however, that was not able to be accomplished until 10/14/2017 due to constipation. The patient did complain of several episodes of pain following his fall with a likely several small hematomas and ecchymoses scattered between his upper and lower extremities after his fall and a supratherapeutic INR. His PCP Dr. Mccormack was consulted to determine when the patient was last seen and had INR monitored and was found to be that his INR was last monitored in August that was 1.6. The patient does frequently come to the hospital for fluid overload states and has been seen in close follow up with his PCP. Finally, the patient stated that he was not able to feel comfortable going home and he did not have a strength up to the position where he will be successful at home. At that time a PT evaluation and treatment was done and they recommended a detention or a swing bed. The patient stated that he would like to be admitted to the swing bed facility in [place] and the case management was consulted and they were able to get him accepted to the [facility] for swing bed treatment. Further home planning will be decided at that time by the physicians taking care of him in the facility. The patient did have blood pressures that remained normotensive to hypotensive during this hospitalization as well as having increased oxygen requirements at one point in the hospitalization requiring the BiPAP therapy. However, on day of discharge, he was maintaining in the 90% oxygen saturation on room air with otherwise normal vital signs. The patient has a very delicate fluid balance and will need to be monitored closely, going home on diuretic therapy. We also recommend that this patient undergo further vaccinations as he is due or at least need to have received his pneumonia vaccines as an outpatient. We also recommend that he continue to follow up with his contractor general engineering to determine and to stay on top of his chronic congestive heart failure as well as atrial fibrillation. Otherwise, the patient had no further complications during the hospitalization and was discharged to [facility] in appropriate condition. DISPOSITION: Stable. DISCHARGE INSTRUCTIONS: 1. Location: He will be discharged to the swing bed at the [facility] in [place]. 2. Diet: Diet will be a diabetic diet, Coumadin prudent diet and heart healthy diet. 3. Activity: Activity will be as tolerated with cardiopulmonary limitations as he is not up to his normal strength. 4. Followup: Follow up will be with his PCP, Dr. Mccormack in [address] Arredondo with Cardiology in 14 days to further discuss management of his long-term disease. FANY
== END 2017-10-15 16:50 | disposition short-term general hospital (02) | DRG 273 ==
LOC: ERS 12:58 → 2NO 15:22 → OBSVTOIN 15:22 → 2NO 17:09 → IMCU/EMU 10-13 10:32 → 2NO 10-15 08:04
PROVIDERS: ADMIT Student in an Organized Health Care Education/Training Program; ATTEND Student in an Organized Health Care Education/Training Program
PROC: 02583ZZ Destruction of Conduction Mechanism, Percutaneous Approach (ICD-10-PCS; principal; 2017-10-11)
PROC: 30233N1 Transfusion of Nonautologous Red Blood Cells into Peripheral Vein, Percutaneous Approach (ICD-10-PCS; 2017-10-12)
DX: I47.2 Ventricular tachycardia (principal); I50.21 Acute systolic (congestive) heart failure; I13.0 Hypertensive heart and chronic kidney disease with heart failure and stage 1 through stage 4 chronic kidney disease, or unspecified chronic kidney disease; N18.3 Chronic kidney disease, stage 3 (moderate); D64.9 Anemia, unspecified; I51.7 Cardiomegaly; I25.10 Atherosclerotic heart disease of native coronary artery without angina pectoris; I48.91 Unspecified atrial fibrillation; E11.22 Type 2 diabetes mellitus with diabetic chronic kidney disease; I25.5 Ischemic cardiomyopathy; F17.210 Nicotine dependence, cigarettes, uncomplicated; J44.9 Chronic obstructive pulmonary disease, unspecified; E87.6 Hypokalemia; K59.00 Constipation, unspecified; S30.1XXA Contusion of abdominal wall, initial encounter; S70.12XA Contusion of left thigh, initial encounter; Z95.5 Presence of coronary angioplasty implant and graft; Z79.899 Other long term (current) drug therapy; Z79.4 Long term (current) use of insulin; Z79.82 Long term (current) use of aspirin; Z95.810 Presence of automatic (implantable) cardiac defibrillator; I48.2 Chronic atrial fibrillation
CPT/HCPCS: 36415; 36416; 36430; 71045; 76882; 76942; 80048; 80053; 80061; 81001; 82553; 82728; 82805; 83036; 83540; 83550; 83880; 84443; 84484; 85014; 85018; 85025; 85027; 85049; 85610; 85730; 86850; 86900; 86901; 87040; 90471; 90715; 93005; 93010; 93306; 93609; 93623; 93656; 94640; 94660; 94760; A4216; C1769; C2630; G8978-GP-CM; G8979-GP-CK; J1265; J1644; J1650; J1815; J2001; J2250; J2704; J3010; J3430; J7050; J7620; P9016

== ENCOUNTER 2017-11-06 11:27 | Emergency (ER) | payer MEDICARE, BC ==
[2017-11-06 12:57] LABS: Bilirubin Negative (Negative); Blood, Urine Negative (Negative); Clarity CLEAR (Clear); Glucose, Urine (Dipstick) Negative (Negative); Leukocyte Trace (Negative); Nitrite Negative (Negative); Protein, Urine (Dipstick) Negative (Neg-Trace); Specific Gravity, Urine 1.008 (1.002-1.036); pH, Urine 6.5 (5.0-9.0)
[2017-11-06 12:59] LABS: Bacteria/HPF None Seen HPF (None Seen); Hyaline Casts/LPF 0-3 HYALINE CAST LPF (0-3 Hyaline); Pathc Cast-AUWi Flag 0.14 (0-2.49); RBC/HPF 0-3 HPF (0-3); Squamous Epithelial None Seen HPF (0-3); WBC/HPF None Seen HPF (0-3)
[2017-11-06 13:00] LABS: #Eosinphils 0.2 thou/uL (0.0-0.7); #Lymphocytes 0.9 thou/uL (1.20-3.40); #Monocytes 0.9 thou/uL (0.11-0.59); #Neutrophils 7.2 thou/uL (1.40-6.50); %Basophils 0.4 % (0.0-1.0); %Eosinophils 2.5 % (0.0-10.0); %Lymphocytes 9.3 % (21.0-51.0); %Monocytes 9.6 % (0.0-10.0); %Neutrophils 78.3 % (42.0-75.0); Hemoglobin 10.6 g/dL (14.0-18.0); Mean Corpuscular HGB CONC 31.1 g/dL (32.0-36.0); Mean Corpuscular Hemoglobin 29.6 pg (27.0-31.0); Mean Corpuscular Volume 95.4 fl (80.0-94.0); Platelet Count 366 thou/uL (130-400); RBC Distribution Width 15.7 % (11.5-14.5); Red Blood Cell (RBC) Count 3.57 mill/uL (4.70-6.10); White Blood Cell (WBC) Count 9.2 thou/uL (4.8-10.8)
--- NOTE | 2017-11-06 13:22 | RAD ---
PORTABLE CHEST ONE VIEW: 11/06/2017 11:47 a.m. HISTORY: Altered mental status. COMPARISON: 10/20/2017 FINDINGS: The heart is enlarged. Left-sided AICD remains in place. The aorta is tortuous. There is obscurati on of the left hemidiaphragm. This may be due to technical factors or consolidation/atelectatic chavez ge/effusion or a combination thereof. No pneumothoraces are seen. The right lung is clear. POS: [facility]
[2017-11-06 13:29] LABS: ALT (SGPT) 28 U/L (8-55); AST (SGOT) 21 U/L (5-34); Albumin 3.5 g/dL (3.4-4.8); Alkaline Phosphatase 94 U/L (40-150); Anion Gap 14 mmol/L (10-20); BUN (Urea Nitrogen) 45 mg/dL (8.4-25.7); Bilirubin, Total 0.8 mg/dL (0.2-1.2); CK (CPK) 75 U/L (30-200); CKMB 2.2 ng/mL (0-6.6); Calc. Creatinine Clearance 0 mL/min (70-130); Carbon Dioxide 29 mmol/L (23-31); Chloride 98 mmol/L (98-107); Estimated GFR-MDRD 29; Globulin 3.4 g/dL (2.4-3.5); Lipase 12 U/L (8-78); Potassium 4.1 mmol/L (3.5-5.1); Protein, Total 6.9 g/dL (5.8-8.1); Sodium 137 mmol/L (136-145); Troponin I 0.035 ng/mL (< 0.028)
[2017-11-06 13:36] LABS: Glucose 55 mg/dL (83-110)
--- NOTE | 2017-11-24 15:43 | EKG ---
Test Reason : Blood Pressure : / mmHG Vent. Rate : 070 BPM Atrial Rate : 064 BPM P-R Int : 000 ms QRS Dur : 198 ms QT Int : 546 ms P-R-T Axes : 000 225 061 degrees QTc Int : 589 ms Ventricular-paced rhythm Biventricular pacemaker detected Abnormal ECG Confirmed by POLLY BISWAS, AFSHIN ([id number]), senior editor JOHNATHON CARBAJAL ([id number]) on 11/24/2017 3:43:05 PM Referred By: Confirmed By:AFSHIN MATIAS MD
== END 2017-11-06 17:48 | disposition home or self-care (01) ==
LOC: ERS 11:27
DX: E11.649 Type 2 diabetes mellitus with hypoglycemia without coma (principal); E78.5 Hyperlipidemia, unspecified; F17.210 Nicotine dependence, cigarettes, uncomplicated; J44.9 Chronic obstructive pulmonary disease, unspecified; I25.2 Old myocardial infarction; I25.10 Atherosclerotic heart disease of native coronary artery without angina pectoris; I48.91 Unspecified atrial fibrillation; I10 Essential (primary) hypertension; I42.9 Cardiomyopathy, unspecified; Z86.73 Personal history of transient ischemic attack (TIA), and cerebral infarction without residual deficits
CPT/HCPCS: 36415; 36416; 71045; 80053; 81003; 81015; 82550; 82553; 83690; 83880; 84484; 85025; 93005

== ENCOUNTER 2018-01-09 16:21 | Inpatient (IN) | payer MEDICARE, BC ==
[2018-01-09 17:07] LABS: #Eosinphils 0.3 thou/uL (0.0-0.7); #Lymphocytes 1.1 thou/uL (1.20-3.40); #Monocytes 0.7 thou/uL (0.11-0.59); #Neutrophils 5.8 thou/uL (1.40-6.50); %Basophils 0.4 % (0.0-1.0); %Eosinophils 3.8 % (0.0-10.0); %Lymphocytes 13.3 % (21.0-51.0); %Monocytes 9.1 % (0.0-10.0); %Neutrophils 73.3 % (42.0-75.0); Hemoglobin 13.1 g/dL (14.0-18.0); Mean Corpuscular HGB CONC 33.5 g/dL (32.0-36.0); Mean Corpuscular Hemoglobin 29.9 pg (27.0-31.0); Mean Corpuscular Volume 89.4 fL (78.0-98.0); Mean Platelet Volume 6.8 fL (7.4-10.4); Platelet Count 226 thou/uL (130-400); RBC Distribution Width 15.4 % (11.5-14.5); Red Blood Cell (RBC) Count 4.39 mill/uL (4.70-6.10); White Blood Cell (WBC) Count 7.8 thou/uL (4.8-10.8)
[2018-01-09 17:37] LABS: ALT (SGPT) 13 U/L (8-55); AST (SGOT) 13 U/L (5-34); Albumin 3.6 g/dL (3.4-4.8); Alkaline Phosphatase 115 U/L (40-150); Anion Gap 18 mmol/L (10-20); BUN (Urea Nitrogen) 71 mg/dL (8.4-25.7); Bilirubin, Total 0.6 mg/dL (0.2-1.2); Calc. Creatinine Clearance 0 mL/min (70-130); Calcium 8.8 mg/dL (7.8-10.44); Carbon Dioxide 22 mmol/L (23-31); Chloride 93 mmol/L (98-107); Estimated GFR-MDRD 14; Globulin 3.4 g/dL (2.4-3.5); Glucose 277 mg/dL (83-110); Potassium 4.9 mmol/L (3.5-5.1); Sodium 128 mmol/L (136-145)
[2018-01-09 17:38] LABS: Alcohol Less than 10 mg/dL (Less than 10); Salicylate Less than 8.0 mg/dL (15.0-30.0)
[2018-01-09 17:43] LABS: INR-International Normal Ratio 2.3; PTT 36.8 SEC (22.9-36.1); Prothrombin Time 25.1 SEC (12.0-14.7)
[2018-01-09 18:10] LABS: Bilirubin Negative (Negative); Blood, Urine Negative (Negative); Clarity CLEAR (Clear); Glucose, Urine (Dipstick) 100 mg/dL (Negative); Leukocyte Negative (Negative); Nitrite Negative (Negative); Protein, Urine (Dipstick) Negative (Neg-Trace); Specific Gravity, Urine 1.011 (1.002-1.036); Urobilinogen 0.2 mg/dL (0.2-1.0)
[2018-01-09 18:19] LABS: Amphetamine Not Detected (NotDetected); Barbiturates Screen Not Detected (NotDetected); Benzodiazepine Screen Not Detected (NotDetected); Cocaine Metabolite Screen Not Detected (NotDetected); Medtox Control Line Valid? VALID (VALID); Medtox Reader # READER 4; Methadone Not Detected (NotDetected); Methamphetamine Not Detected (NotDetected); Opiate Screen Not Detected (NotDetected); Oxycodone Screen Not Detected (NotDetected); Phencyclidine (PCP) Not Detected (NotDetected); THC/Cannabinoid Screen Not Detected (NotDetected); Tricyclic Screen Not Detected (NotDetected)
--- NOTE | 2018-01-09 18:30 | RAD ---
AP VIEW OF THE CHEST: 01/09/18 INDICATION: Hypotension with fever. IMPRESSION: Multilead AICD is unchanged. Mild cardiomegaly is stable. No contusion, pleural effusion, or pneumoth orax is evident. No acute osseous abnormality is evident when compared to the prior dated 11/06/17. POS: [facility]
--- NOTE | 2018-01-09 18:32 | CT ---
CT OF THE BRAIN WITHOUT CONTRAST: 01/09/18 INDICATION: History of fall, malaise, and Warfarin therapy. COMPARISON: Prior study dated 07/26/15. FINDINGS: No definite acute infarct, hemorrhage, or hydrocephalus is present. there is chronic ischemic change that appears stable to the prior exam. Patient is slightly rotated in the gantry is slightly limiting the exam. The mastoid air cells and paranasal sinuses are clear. Skull is intact. There are intracra nial calcifications of the major arteries of the brain. IMPRESSION: No acute intracranial abnormality. POS: [facility]
--- NOTE | 2018-01-09 20:25 | RAD ---
THREE VIEWS OF THE LEFT FOOT: 01/09/18 INDICATION: History of fever and hypotension. FINDINGS: There is a wound overlying the medial aspect of the great toe metatarsophalangeal joint. There is ost eolysis involving the medial aspect of the great toe metatarsal head. There is some irregularity and bone destructive changes of the great toe MTP joint space suspicious for changes of great toe MTP ladan nt space suspicious for changes of septic arthritis and osteomyelitis of the great toe metatarsal hea d and proximal phalanx. No additional destructive osteolysis is evident. IMPRESSION: Soft tissue wound along medial aspect great toe MTP joint with changes of septic arthritis, osteomyel itis of great toe MTP joint. POS: [facility]
[2018-01-09] MEDS ORDERED: Lactated Ringer's 500 ML IV SCH (20:45)
[2018-01-09 20:56] LABS: Troponin I 0.156 ng/mL (< 0.028)
[2018-01-09 21:00] LABS: CKMB 12.8 ng/mL (0-6.6)
[2018-01-09] MEDS ORDERED: Vancomycin HCl 500 MG in Sodium Chloride 0.9% 100 ML IVPB SCH (21:00)
[2018-01-09] MEDS ORDERED: LEVEMIR 60 UNIT SC SCH (21:00)
[2018-01-09] MEDS ORDERED: Insulin Glargine 60 UNITS in Pre-Filled Syringe 1 EACH SC SCH (21:30)
[2018-01-09] MEDS ORDERED: Atorvastatin Calcium 40 MG TAB PO SCH (21:30)
--- NOTE | 2018-01-09 21:42 | PDOC.FPRHP ---
- History of Present Illness Chief Complaint: Fatigue History of Present Illness: 72 yo M with COPD, CKD, DM, HTN, hx of afib, CHF (EF 25-30%), HLD, and prev PA presents for fatigue and "feeling worse." Pt here previously for hx of a fall and cardiac arrythmias in October. Pt has been on outpt therapy for his cellulitis/ foot ulcer, and ran out of his medication two weeks ago (he does not recall the name of the antibiotic). Pt denies any headache, fever/chills, chest pain, SOB, leg/foot pain, weakness or numbness. In the ED he was tachycardic with BP 80s/60s, which improved after 500 NS bolus to 108/80 and his tachycardia resolved. WBC was normal. Received Vanc 1 g then an additional .5 g. EKG showed pacer spikes. CXR showed No acute process. CT brain showed chronic ischemic changes but no acute process. Foot XR showed osteomyelitis. blood cultures were drawn. UDS was negative. - Allergies/Adverse Reactions Allergies Allergy/AdvReac Type Severity Reaction Status Date / Time ham Allergy Unknown Uncoded 01/10/18 03:20 - Home Medications Medication Instructions Recorded Confirmed Type Amiodarone [Cordarone] 200 mg PO DAILY #30 tab 11/02/17 01/10/18 Rx Aspirin [Aspirin Chewable Tablet] 81 mg PO DAILY #30 tab 11/02/17 01/10/18 Rx Carvedilol [Coreg] 3.125 mg PO BID #60 tab 11/02/17 01/10/18 Rx Pantoprazole [Protonix] 40 mg PO DAILY #30 tab 11/02/17 01/10/18 Rx Simvastatin [Zocor] 80 mg PO QPM #30 tab 11/02/17 01/10/18 Rx Ferrous Sulfate 325 mg PO DAILY 01/10/18 01/10/18 History Furosemide 20 mg PO BID 01/10/18 01/10/18 History Insulin Detemir [Levemir] 60 unit SQ QAM 01/10/18 01/10/18 History Warfarin Sodium [Coumadin] 2 mg PO DAILY 01/10/18 01/10/18 History predniSONE [Prednisone] 5 mg PO DAILY 01/10/18 History - History PMHx: CKD, DM, HTN, hx of Afib, hx of MRSA, CHF, HLD, hx of PA in 2008 PSHx: AICD/Pacer unit, appendectomy, cataract surgery FHx: Denied hx of cancer/heart disease Social: 120 pack year hx, denied alcohol or drug use - Review of Systems General: reports: fatigue, other (denied headache). denies: fever/chills Eyes: denies: eye pain, vision changes ENT: reports: rhinorrhea. denies: nasal congestion Respiratory: denies: cough, congestion, shortness of breath Cardiovascular: denies: chest pain, palpitation Gastrointestinal: denies: nausea, vomiting, diarrhea, constipation, abdominal pain, GI bleeding Genitourinary: denies: incontinence, dysuria, discharge Skin: reports: rashes Musculoskeletal: denies: pain, tenderness Neurological: reports: weakness (diffuse weakness intermittently). denies: numbness Psychological: reports: depression (No SI/HI, pt wishes to get out and see people more often). denies: anxiety - Vital signs BP 108/80, P 76, R 18, T 98.3, O2 99% on RA, Wt 90 kg - Physical Exam Constitutional: NAD, awake, alert and oriented HEENT: normocephalic and atraumatic, PERRLA, EOMI, conjunctiva clear, MMM, oropharynx clear, other (poor dentition) Neck: supple, no LAD Heart: RRR, normal S1/S2, no murmurs/rubs/gallops, pulses present (diminished pulses in lower extremities bilaterally, edema around the ulcer on left foot, minimal pitting edema on both lower extremities bilaterally) Lungs: other (Diffuse wheezing, poor air movement in lower lobes, no crackles) Abdomen: soft, non-tender, bowel sounds present, no masses/distention Musculoskeletal: normal structure, normal tone, ROM grossly normal Skin: other (scabbed erythematous papular lesions near sacrum and behind the rt knee, ulcer over MCP joint and heal fof left lower extremity. Streaked erythema from MCP ulcer; erythema surrounding eschar on heal.) Psychiatric: normal mood and affect FMR H&P: Results - Labs Result Diagrams: 01/10/18 04:54 01/10/18 04:54 Lab results: WBC 7.8 thou/uL (4.8-10.8) 01/09/18 16:55 Hgb 13.1 g/dL (14.0-18.0) L 01/09/18 16:55 Hct 39.2 % (42.0-52.0) L 01/09/18 16:55 MCV 89.4 fL (78.0-98.0) 01/09/18 16:55 Plt Count 226 thou/uL (130-400) 01/09/18 16:55 Neutrophils % 73.3 % (42.0-75.0) 01/09/18 16:55 ESR Westergren 24 mm/hr (Less than 20) 01/09/18 16:55 Sodium 128 mmol/L (136-145) L 01/09/18 16:55 Potassium 4.9 mmol/L (3.5-5.1) 01/09/18 16:55 Chloride 93 mmol/L (98-107) L 01/09/18 16:55 Carbon Dioxide 22 mmol/L (23-31) L 01/09/18 16:55 BUN 71 mg/dL (8.4-25.7) H 01/09/18 16:55 Creatinine 4.06 mg/dL (0.6-1.3) H 01/09/18 16:55 Glucose 277 mg/dL (83-110) H 01/09/18 16:55 Lactic Acid 1.4 mmol/L (0.5-2.2) 01/09/18 16:55 Calcium 8.8 mg/dL (7.8-10.44) 01/09/18 16:55 Total Bilirubin 0.6 mg/dL (0.2-1.2) 01/09/18 16:55 AST 13 U/L (5-34) 01/09/18 16:55 ALT 13 U/L (8-55) 01/09/18 16:55 Alkaline Phosphatase 115 U/L (40-150) 01/09/18 16:55 CK-MB (CK-2) 12.8 ng/mL (0-6.6) H* 01/09/18 20:20 C-Reactive Protein 3.73 mg/dL (= or < 0.5) H 01/09/18 16:55 B-Natriuretic Peptide 468.2 pg/mL (0-100) H 01/09/18 20:20 Serum Total Protein 7.0 g/dL (5.8-8.1) 01/09/18 16:55 Albumin 3.6 g/dL (3.4-4.8) 01/09/18 16:55 Urine Ketones Negative mg/dL (Negative) 01/09/18 17:45 Urine Blood Negative (Negative) 01/09/18 17:45 Urine Nitrite Negative (Negative) 01/09/18 17:45 Ur Leukocyte Esterase Negative (Negative) 01/09/18 17:45 - EKG Interpretation EKG: Pacer spikes, wide QRS, sinus rhythm - Radiology Interpretation Chest x-ray Status: image reviewed by me (No acute process), report reviewed by me CT scan - head Status: report reviewed by me (chronic ischemic changes, no acute process) Other Status: image reviewed by me (XR left foot: osteomyelitis), report reviewed by me FMR H&P: A/P - Problem List (1) Sepsis Current Visit: Yes Status: Acute Code(s): A41.9 - SEPSIS, UNSPECIFIED ORGANISM (2) Hyponatremia Current Visit: Yes Status: Acute Code(s): E87.1 - HYPO-OSMOLALITY AND HYPONATREMIA (3) CKD (chronic kidney disease) Current Visit: Yes Status: Chronic Code(s): N18.9 - CHRONIC KIDNEY DISEASE, UNSPECIFIED (4) HTN (hypertension) Current Visit: No Status: Chronic Code(s): I10 - ESSENTIAL (PRIMARY) HYPERTENSION (5) Hx of myocardial infarction Current Visit: Yes Status: Chronic Code(s): I25.2 - OLD MYOCARDIAL INFARCTION (6) Status post biventricular pacemaker Current Visit: Yes Status: Chronic Code(s): Z95.0 - PRESENCE OF CARDIAC PACEMAKER (7) CAD (coronary artery disease) Current Visit: Yes Status: Chronic Priority: Medium Code(s): I25.10 - ATHSCL HEART DISEASE OF [place] CORONARY ARTERY W/O ANG PCTRS Qualifiers: Coronary Disease-Associated Artery/Lesion type: [place] artery [place] vs. transplanted heart: [place] heart Associated angina: without angina Qualified Code(s): I25.10 - Atherosclerotic heart disease of [place] coronary artery without angina pectoris (8) CHF (congestive heart failure) Current Visit: Yes Status: Chronic Code(s): I50.9 - HEART FAILURE, UNSPECIFIED (9) COPD (chronic obstructive pulmonary disease) Current Visit: Yes Status: Chronic (10) DM2 (diabetes mellitus, type 2) Current Visit: Yes Status: Chronic Qualifiers: Diabetes mellitus assisted insulin use: with astrophysics professor use Diabetes mellitus complication status: with kidney complications Diabetes mellitus complication detail: with chronic kidney disease Chronic kidney disease stage : stage 3 (moderate) Qualified Code(s): E11.22 - Type 2 diabetes mellitus with diabetic chronic kidney disease; N18.3 - Chronic kidney disease, stage 3 ( moderate); Z79.4 - care home (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 of insulin (11) GAVIN (acute kidney injury) Current Visit: Yes Status: Acute Code(s): N17.9 - ACUTE KIDNEY FAILURE, UNSPECIFIED (12) Hypotension Current Visit: Yes Status: Acute - Plan 72 yo M with sepsis 2/2 to osteomyelitis. Sepsis 2/2 to Osteomyelitis of the L foot -Hypotensive and tachycardic upon admission, normal WBC. L Foot XR showed osteomyelitis. LA 1.4. CRP 3.72. ESR 24. - UA negative, CXR no acute process. EKG showed paced rhythm. -Fluid bolus NS 500, LR 500 -LR @ 110 for gentle MIVF -Blood cultures drawn -Vanc and zosyn started, renally dosed -Random vanc trough and vanc trough 1 hr before 3rd dose ordered Osteomyelitis, Foot Ulcers -Foot XR showed osteomyelitis -Wound cultures pending -Wound care consulted -Surgery consult in the morning for possible amputation -NPO at midnight, warfarin switched to heparin for hx of a fib Hyponatremia -Sodium corrects to 131 -fluid restricted to <1800 ml/day -will continue to monitor GAVIN on CKD -BUN/Cr 71/4.06 -Receiving fluids, continue to monitor. Vanc and zosyn renally dosed. Head CT -Originally concern for fall, but according to patient fall was 3 months ago and he had a workup for it afterwards. CT brain showed chronic ischemic changes but no acute process. No further workup necessary at this time. DM 2 -Moderate SSI -glucose 277 on admission HTN -Because of his sepsis and low BP, home HTN meds held at this time CHF, HLD -continue home medications. Lasix held for hypotension and fluid resuscitation. COPD -duoneb, continue prednisone, dulera Code status: DNR L Carline, PGY-1 FMR H&P: Upper Level - Pertinent history 72M presents for left foot wound. He states this has been an issue approximately 3 months ago. His AICD device shocked him and he fell, injuring the medial aspect of his left first digit. It has worsen since then. He was started on an abx which he does not know the name of. His wound did not improve. His foot wound is associated with fever and malaise. He denies pain or numbness in extremities, SOB, coughing, chest pain. In ED, he received 500 ml of NS and 1 gm of vanc. His pressure was originally 70/50, but recovered after fluid. PMHx: CKD, DM, HTN, hx of afib, hx of MRSA, CHFrEF, HLD, PA PSHx: AICD/Pacer, appendectomy FHx: Denied hx of heart disease Social: 120 pack year tobacco use ROS Gen: Endorse fatigue, deny fever/chill CV: Deny chest pain, palpitaiton Resp: Deny cough, congestion : Denies dyruisa GI: Denies nausea, vomiting Neurological: Endorses generalized weakness Psych: Endorse depression without SI/HI - Pertinent findings Vitals: 108/80,Pulse 69, Resp 19, Tmax 99% RA, Weight 90.7 kg Gen: NAD, watching TV, pleasant HEENT: Moist mucosal membrane, poor dentition, supple neck, no icterus CV: RRR with no apparent m/g/r, distant heart sound Resp: Wheezing in both lung field, diminished breath sound GI: Soft abd, non tender, normoactive Derm: Area of eschar approximately 1.5 cm surrounded by erythema and swelling at left foot, first digit. There is possible pressure ulcer on heel of left foot , approximately 2 cm. No discharge, no pain on palpation. Possible friction blister on sacrum, multiple bullous area about .75 cm in diameter MSK: Strength 5/5 in LE Neuro: CN II-XII grossly intact, strength 5/5 in LE Psych: Pleasant, Lab: Na 128, Glucose 277, BUN 71, Cr 4.06, CRP 3.73, INR 2.3, UA negative, LA 1.4, Foot XR: Osteomyelitis - Plan Date/Time: 01/09/18 2140 I, [Jeff Ly], have evaluated this patient and agree with findings/plan as outlined by academic intern resident. Pertinent changes/additions are listed here. 1.Osteomyelitis: Recent stay at health care facility. Zosyn and vancomycin for pseudomonas and MRSA/strep coverage. In morning, consult Gen Surg for evaluation , possible debridement 2.Sepsis: Covering with abx. Due to hx of CHFrEF of 20-25%, will be conservative with fluid. 500 ml bolus, 110 ml/hr fluid. NPO at midnight. 3.GAVIN on CKD: Gentle fluid hydration. Monitor clinical status. Repeat lab. Abx dosed for kidney function. 4.Hyponatremia: Likely hypovolemic hyponatremia. Will correct with fluid repletion. 5.CHrEF. BNP 400. Lower then previous visit. Will give him IV fluid at this time during acute phase of shock. Reevaluate his clinical picture daily for timing on stopping fluid. 6.DM2: Continue home insulin, SSI 7.HTN: Hold home med due to sepsis 8.HLD: Continue home med 9.Hx of Afib: Start on heparin due to renal failure.. Stop Coumadin due to possibility of surgical treatment. Continue amiodarone. 10.GERD, continue protonix 11.COPD: Continue with prednisone. Duoneb treatment as needed. Continue duoneb/ dulera treatment. 12. PPx: Hold coumadin, start on heparin. Attending Addendum - Attending Addendum Date/Time: 01/09/180 I personally evaluated the patient and discussed the management with Dr. Crowley/ Joana. I agree with the History, Examination, Assessment and Plan documented above with any addition or exceptions noted below. Please see event note from 01/09/18 for further attending details.
[2018-01-09] MEDS ORDERED: Heparin 5,000 UNITS/ML VIAL SC SCH (22:15)
--- NOTE | 2018-01-09 23:38 | PDOC.EVN ---
Attending Addendum - Attending Addendum Date/Time: 01/09/182129 I personally evaluated the patient and discussed the management with Dr. Cha Crowley /German Bernadr. I agree with the History, Examination, Assessment and Plan documented in the electronic H&P with any addition or exceptions noted below. Patient is 72 yo gentleman admitted by me 3 months ago with history of sCHF ( EF20-25%), AICD placement, pAfib, T2DM, HTN, HLD, CAD CKD3, and COPD who is presenting with worsening foot pain. Patient reports receiving outpatient abx for L toe ulcer and associated infection over the last few weeks, and completed the abx therapy about 2 weeks ago. Reports feeling well during that time but has had worsening pain in the L foot since cessation of abx. Reports increasing redness near the L great toe as well as around an ulcer on the heel aspect of L foot. Denies purulence, fevers, chills, nausea, vomiting. Reports only pain and redness. Reports taking all medications as prescribed. Though he has these foot ulcers chronically, he has never had any major issues with his feet. Reports that he lives at home with his . On exam, vitals are stable. Afebrile, HR 70s, v paced on monitor, BP 100/60s, normal oxygenation status. He is pleasant in conversation, NAD. Lungs overall clear, heart RRR. Abdomen soft and nontender. Extremity exam reveals moderate size ulcer with eschar formation on the medial aspect of L foot near his great toe, and another on the posterior aspect near his heel. No purulence noted. Pulses palpable but faint. Surround erythema to midfoot associated with the L great toe proximity ulceration. Foul smelling. No cyanosis or peripheral edema in either leg. Patient also noted to have new forming ulcer on the plantar surface of the R foot, does not appear infected. Labs do not show evidence of systemic infection, though ESR and CRP are elevated. Mild hyponatremia. Renal values show worsening from last admission. XR of L foot shows changes consistent with possible septic arthritis versus bony destruction from osteomyelitis. CT brain and CXR stable from previous. Patient will be admitted to telemetry for: 1. Sepsis 2/2 L foot diabetic ulceration with possible underlying osteomyelitis - full admit. Consult Wound care and will consult GenSurg in the morning. Systemic IV abx with Vanc and Zosyn, renally dosed. Blood and wound cx obtained. Will likely need surgical debridement versus amputation, which the patient has been made aware of that possibility. Defer on MRI since XR is consistent with diagnosis. Aggressive sliding scale and will work to get blood sugars under ideal control. 2. Chronic coumadin therapy- due to potential for surgery, will hold coumadin and begin heparin therapy. Current INR appropriate. 3. Acute on chronic CKD- patient appears hypovolemic on exam, and reports being seen in ER recently for dehydration. He may need modulation of his diuretic therapy. He will be given an additional bolus of 500ml IVF, and will start some gentle maintenance fluids overnight. Due to severe sCHF, will need to keep close eye on his fluid status. Holding diuretics tonight. Recheck renal function in AM. Will need to renally dose all medications. 4. DM- aggressive sliding scale and home medications. 5. sCHF- strict I/O. Will be fine balance between improving renal function and worsening fluid status. Re-evaluate frequently as last admission he became volume overloaded with subsequent IMCU admission with BIPAP until diuresed adequately. 6. pAfib- currently V paced and no evidence of aberrancy. Cardiac enzymes indeterminate but known troponin leak due to his CHF and recent hypotension likely resulting in ischemia. He has no chest pain or shortness of breath. Monitor on tele. Heparin for anticoagulation. 7. DVT ppx- Heparin 8. Code status- patient indicates he is a DNR and that he would not want to be placed "on any machines". He is "ok" with a short trial of CPR if necessary but declines intubation or life support measures.
[2018-01-09 23:51] LABS: Hemoglobin 13.9 g/dL (14.0-18.0); Platelet Count 248 thou/uL (130-400)
[2018-01-09] MEDS ORDERED: Dextrose 5% in Water 1,000 ML IV PRN (23:53)
[2018-01-09] MEDS ORDERED: Acetaminophen 325 MG TAB PO PRN (23:53)
[2018-01-09 23:59] LABS: INR-International Normal Ratio 2.1; PTT 35.4 SEC (22.9-36.1); Prothrombin Time 23.5 SEC (12.0-14.7)
[2018-01-10] MEDS: Lactated Ringer's 1,000 ML IV SCH ×2 (00:31→07:28)
[2018-01-10] MEDS: Carvedilol 3.125 MG TAB PO SCH ×2 (00:32→08:53)
[2018-01-10] MEDS: HumaLOG 300 UNITS/3 ML VIAL SC PRN (01:06)
[2018-01-10] MEDS: Piperacillin/Tazobactam 2.25 GM in Sodium Chloride 0.9% 100 ML IVPB SCH ×5 (03:06→22:37)
[2018-01-10 05:31] LABS: #Eosinphils 0.2 thou/uL (0.0-0.7); #Lymphocytes 1.3 thou/uL (1.20-3.40); #Monocytes 0.7 thou/uL (0.11-0.59); #Neutrophils 4.8 thou/uL (1.40-6.50); %Basophils 0.7 % (0.0-1.0); %Eosinophils 2.4 % (0.0-10.0); %Lymphocytes 18.1 % (21.0-51.0); %Monocytes 10.2 % (0.0-10.0); %Neutrophils 68.6 % (42.0-75.0); Hemoglobin 12.3 g/dL (14.0-18.0); Mean Corpuscular Hemoglobin 29.7 pg (27.0-31.0); Mean Corpuscular Volume 89.9 fL (78.0-98.0); Mean Platelet Volume 6.8 fL (7.4-10.4); Platelet Count 217 thou/uL (130-400); RBC Distribution Width 15.3 % (11.5-14.5); Red Blood Cell (RBC) Count 4.16 mill/uL (4.70-6.10)
--- NOTE | 2018-01-10 05:37 | PDOC.FM ---
- Subjective Subjective: Has no complaints this morning. Denies pain in his left foot. Denies foot pain, chest pain, SOB, or abdominal pain. - Objective MAR Reviewed: Yes Vital Signs & Weight: Vital Signs (12 hours) Temp Pulse Resp BP Pulse Ox 01/09/18 23:53 97.6 F 71 18 94 L 01/09/18 23:20 97.6 F 71 18 105/63 94 L Weight Weight 88.451 kg Result Diagrams: 01/10/18 04:54 01/10/18 04:54 <Ugo Mcdowell - Last Filed: 01/10/18 08:40> - Objective Vital Signs & Weight: Vital Signs (12 hours) Temp Pulse Pulse Resp BP BP BP 01/13/18 14:10 71 120/60 01/13/18 11:56 97.0 F L 75 27 H 119/66 01/13/18 07:46 97.4 F L 79 26 H 01/13/18 07:35 97.4 F L 79 26 H 115/54 L 01/13/18 06:29 74 18 01/13/18 06:27 74 18 01/13/18 04:00 97.7 F 72 18 121/69 Pulse Ox Pulse Ox 01/13/18 14:10 100 01/13/18 11:56 96 01/13/18 07:46 100 01/13/18 07:35 95 01/13/18 06:29 99 01/13/18 06:27 99 01/13/18 04:00 99 Weight Admit Weight 88.451 kg Weight 87.906 kg I&O: 01/12/18 01/13/18 01/14/18 06:59 06:59 06:59 Intake Total 1450 1720 Output Total 1100 1780 Balance 350 -60 Result Diagrams: 01/13/18 04:07 01/13/18 04:06 <Mikaela Frost - Last Filed: 01/13/18 14:53> Phys Exam - Physical Examination Constitutional: NAD (resting) HEENT: PERRLA dry mucus membranes Neck: no JVD, full ROM Respiratory: no wheezing, clear to auscultation bilateral Cardiovascular: RRR, no significant murmur Gastrointestinal: soft, non-tender, no distention, positive bowel sounds Musculoskeletal: pulses present Neurological: normal sensation, moves all 4 limbs Psychiatric: A&O x 3 Skin: normal turgor, cap refill <2 seconds Deviation from normal: Has 1.5x1.5 cm lesion on foot with erythema surrounding the area <Ugo Mcdowell - Last Filed: 01/10/18 08:40> Dx/Plan (1) Osteomyelitis of left foot Code(s): M86.9 - OSTEOMYELITIS, UNSPECIFIED Status: Acute (2) Acute kidney injury superimposed on chronic kidney disease Code(s): N17.9 - ACUTE KIDNEY FAILURE, UNSPECIFIED; N18.9 - CHRONIC KIDNEY DISEASE, UNSPECIFIED Status: Acute (3) Hyponatremia Code(s): E87.1 - HYPO-OSMOLALITY AND HYPONATREMIA Status: Acute (4) Sepsis Code(s): A41.9 - SEPSIS, UNSPECIFIED ORGANISM Status: Acute (5) CAD (coronary artery disease) Code(s): I25.10 - ATHSCL HEART DISEASE OF [place] CORONARY ARTERY W/O ANG PCTRS Status: Chronic Qualifiers: Coronary Disease-Associated Artery/Lesion type: [place] artery [place] vs. transplanted heart: [place] heart Associated angina: without angina Qualified Code(s): I25.10 - Atherosclerotic heart disease of [place] coronary artery without angina pectoris (6) CHF (congestive heart failure) Code(s): I50.9 - HEART FAILURE, UNSPECIFIED Status: Chronic - Plan Plan: This is a 72 yo male with a PMH of Afib, CHF, CKD, HTN, DM, COPD, HLD Sepsis 2/2 osteomyelitis -Hypotension resolving. Pt. is on vanc and zosyn with pending random vanc and vanc trough levels. Pt. has been responsive to IVFs, we will continue to monitor his fluid status vs. his vital signs for an appropriate stopping point of fluids. Blood cultures are pending. UA is negative. EKG shows paced rhythm, CXR shows no acute process. We will continue monitoring vital signs Osteomyelitis -With failed outpt treatment of cellulitis with unknown abx. Wound care has been consulted. We will consult surgery this morning. Pt. is currently NPO and warfarin has been switched to heparin Hyponatremia -corrected 131 last night, pending AM labs. Pt. is on fluid restriction <1800 mL /day GAVIN on CKD -BUN/Cr 71/4.06 baseline creatinine appears to be around 2. Pt. is receiving fluids and we will continue to monitor Afib -Pt. is on warfarin at home and INR was therapeutic upon admission. Pt. has been switched to heparin pending any surgeries today DM2 -Moderate SSI, continue home basal insulin, attempt tight glucose control to aid in wound healing CHF -Continue to monitor fluid status. Lasix held for hypotension HLD -Continue home meds COPD -Duoneb, Continue prednisone Code: DNR Prophylaxis: none Family: none at bedside Disposition: home in 1-2 days <Ugo Mcdowell - Last Filed: 01/10/18 08:40> Attending Addendum - Attending Addendum Date/Time: 01/10/18 2576 I personally evaluated the patient and discussed the management with Dr. Mcdowell I agree with the History, Examination, Assessment and Plan documented above with any addition or exceptions noted below. 72 yo male with cardiovascular disease and DM admitted for osteomylitis. Stable overnight. BP has improved. On emperic antibx, however poor profusion. Unable to palpate pulses. Wound care consulted. Will consult CV surg. JamelMD <Mikaela Frost - Last Filed: 01/13/18 14:53>
[2018-01-10 05:44] LABS: Anion Gap 14 mmol/L (10-20); BUN (Urea Nitrogen) 62 mg/dL (8.4-25.7); Calc. Creatinine Clearance 25 mL/min (70-130); Carbon Dioxide 23 mmol/L (23-31); Chloride 100 mmol/L (98-107); Estimated GFR-MDRD 19; Potassium 4.3 mmol/L (3.5-5.1); Sodium 133 mmol/L (136-145)
[2018-01-10 05:46] LABS: Glucose 49 mg/dL (83-110)
[2018-01-10] MEDS: Dextrose 50% Abboject 50 ML SYRINGE SLOW IVP PRN (05:55)
[2018-01-10] MEDS: Mometasone/Formoterol 120 PUFF INHALER INH SCH ×2 (06:43→18:28)
[2018-01-10] MEDS: Ferrous Sulfate 325 MG TAB PO SCH ×2 (08:53→16:34)
[2018-01-10] MEDS: Ascorbic Acid 500 mg Chewable Tablet PO SCH (08:53)
[2018-01-10] MEDS: Amiodarone 200 MG TAB PO SCH (08:53)
[2018-01-10] MEDS: Heparin 5,000 UNITS/ML VIAL SC SCH ×3 (08:53→20:37)
[2018-01-10] MEDS ORDERED: Lactated Ringer's 1,000 ML IV SCH ×2 (08:55→13:00)
[2018-01-10] MEDS ORDERED: Furosemide 40 MG TAB PO SCH (09:00)
[2018-01-10] MEDS ORDERED: Lactated Ringer's 250 ML IV SCH (13:00)
--- NOTE | 2018-01-10 13:46 | CON ---
DATE OF CONSULTATION: 01/10/2018 HISTORY OF PRESENT ILLNESS: This is a 72-year-old gentleman with multiple severe medical problems. He was admitted at this time after his home nurse found that he was severely hypotensive at home, pro mpting admission to the hospital. The patient was recently discharged from the hospital after a prol onged 2-3 week stay following his defibrillator firing at home and him being found down. He was in [facility] for a prolonged period of time and then transferred to a [facility] unit. Over the course of that prolonged stay, he developed a pressure heel ulcer on the left as well as an ulcer on the left first metatarsal head. This has been treated with outpatient oral antibiotics and has not r esolved. The patient states his legs hurt below the knees. He states over the last 2 days, he has h ad some difficulty sleeping at night due to pain and had difficulty standing up due to pain and weakn ess. His cardiac history is significant and he has severe cardiomyopathy with an ejection fraction o f 20%-25% with a defibrillator in place. He has had a cardiac catheterization within the past few ye ars, showing moderate coronary artery disease, but no critical disease. He also had a history of atr ial fibrillation and underwent ablation this past October while he was hospitalized. He has type 2 diabe mariann mellitus, COPD with [id number] smoking history, although none in 5 years. He has hypertension and chronic kidney disease. MEDICATIONS AT HOME: Included amiodarone 200 mg a day, aspirin 81 a day, Coreg 3.125 b.i.d., Zocor 8 0 q.p.m., Protonix 40 daily, Lasix 20 b.i.d., Levemir 60 units every morning, Coumadin 2 mg a day, pr ednisone 5 mg a day. ALLERGIES: To HAM. LABORATORY DATA: On this admission include a creatinine of 3.23 today and 4.06 yesterday. Sugars ar e in the 250-300 range. Troponins are slightly elevated at 0.18 and a BNP is elevated at 468. His w jaswinder count is normal. PHYSICAL EXAMINATION: GENERAL: He is an alert, cooperative gentleman. NECK: No carotid bruits. LUNGS: Bilateral expiratory wheezes. CARDIAC: Regular rate and rhythm. No murmurs. AICD in left upper chest wall. ABDOMEN: Nontender, no organomegaly. EXTREMITIES: He has some brownish pigmentation in both legs below the knee with no peripheral edema. He has palpable femoral pulses bilaterally as well as popliteal pulses with the right, slightly brenda g, more prominent than the left. He has no palpable pedal pulses. He has a biphasic Doppler signal in the right DP and right PT and biphasic in the left PT. He has a 1.5 cm2 eschar in the left embedded software programmer ior lateral heel area and then he has a 1 cm or so punched out lesion over the lateral aspect of the first metatarsal head with some erythema and enlargement of the metatarsal head area to palpation wit h no tenderness or warmth or drainage. There is an odor of gangrene. PLAN: At this time, the patient probably has both superficial femoral artery and tibioperoneal disea se bilaterally. Unfortunately, with his elevated creatinine, angiography probably carries a prohibit aniceto risk. I do not think his circulation is adequate to allow for toe or ray amputation with any hop es of healing. At the present time, below-knee amputation is probably appropriate, but he is not int erested in pursuing this procedure at the present time. We would continue local wound care and do no t think IV antibiotics have much to add at this point. If the patient is bothered by ischemic rest p ain or of his ulcerations worsen or become infected, then amputation might be something that he is wi lling to pursue at that time.
--- NOTE | 2018-01-10 15:17 | PDOC.PULCN ---
<DonajosephDarron - Last Filed: 01/10/18 16:21> Pulmonology Consult: HPI - Date of Consult Date: 01/10/18 Time: 15:00 - Consult Details Reason for Consult: hypotension, sepsis Requesting Physician: christ - History of Present Illness HPI: DEMOND MCADAMS is a 72 year-old M admitted after being found to have hypotension by his home health nurse. Evaluation in the ED showed Osteomyelitis of L foot. He has PMH including moderate CAD, CHF w/ EF 20-25%, AICD, COPD 60+ pack year smoking history, CKD, HTN, DM. He was seen by Dr. Underwood for evalution of wounds on the foot. Dr. Underwood advised BKA but patient is not ready for that at this point. Chart review shows history of MRSA in the foot as well as Ucx growing out MRSA. Pulmonology Consult: ROS - Review of Systems Constitutional: negative: fever, chills, sweats Cardiovascular: negative: chest pain Respiratory: negative: chest soreness, short of breath Pulmonology Consult: PMH Source: patient, other (chart) Past Medical History: moderate CAD, CHF w/ EF 20-25%, AICD, COPD 60+ pack-years, CKD, HTN, DM - Family History Family history: reviewed and not pertinent - Social History Smoking Status: Former smoker Alcohol Use: none Drug Use History: none Living Situation: Pulmonology Consult: Meds - Medications MAR Reviewed: Yes Medications: Current Medications Acetaminophen (Tylenol) 650 mg PO Q6H PRN PRN Reason: Fever/Mild Pain Albuterol/Ipratropium (Duoneb) 3 ml NEB [id number] PRN PRN Reason: SOB &/or Wheezing Albuterol/Ipratropium (Duoneb) 3 ml NEB NOW [facility] Stop: 01/10/18 17:00 Last Admin: 01/10/18 15:06 Dose: Not Given Amiodarone HCl (Cordarone) 200 mg PO DAILY [facility] Last Admin: 01/10/18 08:53 Dose: 200 mg Ascorbic Acid (Vitamin C) 500 mg PO QAM-WM [facility] Last Admin: 01/10/18 08:53 Dose: 500 mg Aspirin (Aspirin Chewable) 81 mg PO DAILY [facility] Last Admin: 01/10/18 08:53 Dose: 81 mg Dextrose/Water (Dextrose 50%) 25 gm SLOW IVP PRN PRN PRN Reason: Hypoglycemia Last Admin: 01/10/18 05:55 Dose: 25 gm Ferrous Sulfate (Feosol) 325 mg PO BID-WM [facility] Last Admin: 01/10/18 08:53 Dose: 325 mg Glucagon (Glucagon) 1 mg IM PRN PRN PRN Reason: Hypoglycemia Heparin Sodium (Porcine) (Heparin) 5,000 units SC TID [facility] Last Admin: 01/10/18 14:40 Dose: 5,000 units Vancomycin HCl 1.25 gm/ Sodium (Chloride) 250 mls @ 166.67 mls/hr IVPB 1800 [facility] Insulin Glargine 60 units/ (Miscellaneous Medication) 0.6 mls @ 0 mls/hr SC HS [facility] Dextrose/Water (D5w) 1,000 mls @ 0 mls/hr IV .Q0M PRN PRN Reason: Hypoglycemia Piperacillin Sod/Tazobactam (Sod 2.25 gm/ Sodium Chloride) 100 mls @ 200 mls/ hr IVPB Q6H [facility] Last Admin: 01/10/18 15:07 Dose: 100 mls Insulin Human Lispro (Humalog) 0 units SC .MODERATE SLIDING SC PRN PRN Reason: Moderate Correctional Scale Insulin Human Lispro (Humalog) 0 units SC .BEDTIME SLIDING SC PRN PRN Reason: Bedtime Correctional Scale Last Admin: 01/10/18 01:06 Dose: 3 unit Mometasone Furoate/Formoterol Fumar (Dulera 100 Mcg/5 Mcg Inhaler) 1 puff INH BID-RT [facility] Last Admin: 01/10/18 06:43 Dose: 1 puff Pantoprazole Sodium (Protonix) 40 mg PO DAILY [facility] Last Admin: 01/10/18 08:53 Dose: 40 mg - Allergies Allergies/Adverse Reactions: Allergies Allergy/AdvReac Type Severity Reaction Status Date / Time ham Allergy Unknown Uncoded 01/10/18 03:20 Pulmonology Consult: PE - Physical Exam Constitutional: NAD HEENT: moist MMs Cardiovascular: RRR, no significant murmur Deviation from normal: crackles, good air movement after neb, wheezing b4 neb Gastrointestinal: soft, non-tender, no distention, positive bowel sounds Deviation from normal: Wounds at L 1st MTP, L heal, R 5th MTP -: pulses difficult to appreciate Neurological: moves all 4 limbs Psychiatric: A&O x 3 Skin: normal turgor, cap refill <2 seconds Deviation from normal: redness surrounding wounds Pulmonology Consult: Results - Labs Result Diagrams: 01/10/18 04:54 01/10/18 04:54 Pulmonology Consult: A/P - Time Time: 50% of the time was spent in coordination of care (as documented) at patient's floor/unit and/or counseling patient. 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 () Resp (likely COPD, fluid overload) - duoneb q4 prn - lasix 40mg PO, daily CV (hypotensive, CAD, PVD) - BKA recommended by Kj, pt refused - plan for long-term abx therapy - echo to check for dyssyncrony 2/2 AICD GI () Nutrition - heart healthy Hematologic () /Renal (GAVIN on CKD) - Cr 3.23, baseline around 2 Infection (osteomyelitis,sepsis) - Vanc, Zosyn - previous bone biopsy showed MRSA, pseudomonas, and enterococcus - contact precautions - discussed low likelihood of saving foot Endo (DM) - glargine 60U qHS - aggressive sliding scale Code status: DNR PPx: scd, heparin Diet: heart healthy Dispo: > 2 days <Morro Srivastava M - Last Filed: 01/10/18 18:49> Pulmonology Consult: HPI - History of Present Illness HPI: DEMOND MCADAMS is a 72 year-old M Pulmonology Consult: Meds - Medications Medications: Current Medications Acetaminophen (Tylenol) 650 mg PO Q6H PRN PRN Reason: Fever/Mild Pain Albuterol/Ipratropium (Duoneb) 3 ml NEB [id number] PRN PRN Reason: SOB &/or Wheezing Amiodarone HCl (Cordarone) 200 mg PO DAILY [facility] Last Admin: 01/10/18 08:53 Dose: 200 mg Ascorbic Acid (Vitamin C) 500 mg PO QAM-WM [facility] Last Admin: 01/10/18 08:53 Dose: 500 mg Aspirin (Aspirin Chewable) 81 mg PO DAILY [facility] Last Admin: 01/10/18 08:53 Dose: 81 mg Dextrose/Water (Dextrose 50%) 25 gm SLOW IVP PRN PRN PRN Reason: Hypoglycemia Last Admin: 01/10/18 05:55 Dose: 25 gm Ferrous Sulfate (Feosol) 325 mg PO BID-WM [facility] Last Admin: 01/10/18 16:34 Dose: 325 mg Furosemide (Lasix) 40 mg PO DAILY-AC [facility] Glucagon (Glucagon) 1 mg IM PRN PRN PRN Reason: Hypoglycemia Heparin Sodium (Porcine) (Heparin) 5,000 units SC TID [facility] Last Admin: 01/10/18 14:40 Dose: 5,000 units Vancomycin HCl 1.25 gm/ Sodium (Chloride) 250 mls @ 166.67 mls/hr IVPB 1800 [facility] Insulin Glargine 60 units/ (Miscellaneous Medication) 0.6 mls @ 0 mls/hr SC HS [facility] Dextrose/Water (D5w) 1,000 mls @ 0 mls/hr IV .Q0M PRN PRN Reason: Hypoglycemia Piperacillin Sod/Tazobactam (Sod 2.25 gm/ Sodium Chloride) 100 mls @ 200 mls/ hr IVPB Q6H [facility] Last Admin: 01/10/18 15:07 Dose: 100 mls Insulin Human Lispro (Humalog) 0 units SC .MODERATE SLIDING SC PRN PRN Reason: Moderate Correctional Scale Insulin Human Lispro (Humalog) 0 units SC .BEDTIME SLIDING SC PRN PRN Reason: Bedtime Correctional Scale Last Admin: 01/10/18 01:06 Dose: 3 unit Mometasone Furoate/Formoterol Fumar (Dulera 100 Mcg/5 Mcg Inhaler) 1 puff INH BID-RT [facility] Last Admin: 01/10/18 18:28 Dose: 1 puff Pantoprazole Sodium (Protonix) 40 mg PO DAILY [facility] Last Admin: 01/10/18 08:53 Dose: 40 mg Pulmonology Consult: Results - Labs Result Diagrams: 01/10/18 04:54 01/10/18 04:54 Pulmonology Consult: A/P - Time Time: 50% of the time was spent in coordination of care (as documented) at patient's floor/unit and/or counseling patient. Attending Addendum - Attending Addendum Date/Time: 01/10/181848 I personally evaluated the patient and discussed the management with Dr. Crowley. I agree with the History, Examination, Assessment and Plan documented above with any addition or exceptions noted below. 70 minutes have been devoted to this patient in various activities. I personally reviewed all imaging studies and laboratory data noted within this document. For 50% of this time, I was interacting with the patient at bedside or coordinating care with the care team. For the remainder of the time, I was immediately available to the patient in the hospital unit.
--- NOTE | 2018-01-10 15:37 | RAD ---
PORTABLE CHEST: 01/10/18 HISTORY: Shortness of breath. COMPARISON: 01/09/18. Heart size is upper normal but stable. AICD leads again noted. Lung stewart appear clear. No infiltrat e or vascular congestion. No effusion. No interval change. IMPRESSION: No acute finding. POS: [facility]
[2018-01-10] MEDS ORDERED: Furosemide 20 MG TAB PO SCH (15:45)
--- NOTE | 2018-01-10 16:57 | RAD ---
RIGHT FOOT THREE VIEWS: 01/10/18 HISTORY: Foot pain. Ulceration. FINDINGS: Lisfranc joint alignment is anatomic. Plantar arch maintained. Osteophytosis throughout the foot. Inc ompletely healed distal fibular shaft fracture. Severe osteoarthritic changes first metatarsophalange al joint, including complete loss of joint space. Soft tissue swelling about the base of the fifth to e. No aggressive osseous destruction or soft tissue gas. IMPRESSION: Soft tissue swelling. No radiographic evidence of aggressive osseous destruction. Incompletely healed fracture distal right fibular shaft. 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 POS: [facility]
[2018-01-10] MEDS ORDERED: Warfarin Sodium 3 MG TAB PO SCH (17:00)
[2018-01-10 18:44] LABS: Vancomycin, Random 15.3 ug/mL (See Comment)
[2018-01-10] MEDS: Vancomycin HCl 1.25 GM in Sodium Chloride 0.9% 250 ML 250 ML IVPB SCH (20:37)
[2018-01-10] MEDS ORDERED: Atorvastatin Calcium 40 MG TAB PO SCH (21:00)
[2018-01-10] MEDS: Insulin Glargine 60 UNITS in Pre-Filled Syringe 1 EACH SC SCH (22:37)
[2018-01-11] MEDS: Piperacillin/Tazobactam 2.25 GM in Sodium Chloride 0.9% 100 ML IVPB SCH ×4 (03:04→20:59)
[2018-01-11 05:14] LABS: #Basophils 0.1 thou/uL (0.0-0.2); #Eosinphils 0.2 thou/uL (0.0-0.7); #Lymphocytes 0.9 thou/uL (1.20-3.40); #Monocytes 0.6 thou/uL (0.11-0.59); #Neutrophils 5.1 thou/uL (1.40-6.50); %Basophils 0.7 % (0.0-1.0); %Eosinophils 3.5 % (0.0-10.0); %Lymphocytes 12.6 % (21.0-51.0); %Monocytes 8.9 % (0.0-10.0); %Neutrophils 74.2 % (42.0-75.0); Hemoglobin 11.6 g/dL (14.0-18.0); Mean Corpuscular HGB CONC 33.1 g/dL (32.0-36.0); Mean Corpuscular Hemoglobin 30.1 pg (27.0-31.0); Mean Corpuscular Volume 91.1 fL (78.0-98.0); Mean Platelet Volume 6.8 fL (7.4-10.4); Platelet Count 196 thou/uL (130-400); RBC Distribution Width 15.4 % (11.5-14.5); Red Blood Cell (RBC) Count 3.83 mill/uL (4.70-6.10); White Blood Cell (WBC) Count 6.9 thou/uL (4.8-10.8)
[2018-01-11 05:24] LABS: Anion Gap 12 mmol/L (10-20); BUN (Urea Nitrogen) 42 mg/dL (8.4-25.7); Calc. Creatinine Clearance 31 mL/min (70-130); Calcium 8.4 mg/dL (7.8-10.44); Carbon Dioxide 24 mmol/L (23-31); Chloride 100 mmol/L (98-107); Estimated GFR-MDRD 24; Glucose 278 mg/dL (83-110); Potassium 4.4 mmol/L (3.5-5.1); Sodium 132 mmol/L (136-145)
--- NOTE | 2018-01-11 06:17 | PDOC.FM ---
- Subjective Subjective: Pt denies dizziness, headaches, chest pain, or SOB. He states he did well over night. Pt. states his feet were itching all over. Pt. denies pain in his feet. Pt. denies pain in his feet. - Objective MAR Reviewed: Yes Vital Signs & Weight: Vital Signs (12 hours) Temp Pulse Resp BP Pulse Ox 01/11/18 03:58 98.4 F 70 20 106/54 L 100 01/11/18 00:00 98.0 F 70 18 136/62 100 01/10/18 20:00 97.6 F 72 20 103/56 L 100 01/10/18 18:28 69 12 99 Weight Admit Weight 88.451 kg Weight 87.906 kg I&O: 01/09/18 01/10/18 01/11/18 06:59 06:59 06:59 Intake Total 459 1350 Output Total 300 800 Balance 159 550 Result Diagrams: 01/11/18 04:30 01/11/18 04:30 <Ugo Mcdowell - Last Filed: 01/11/18 07:46> - Objective Vital Signs & Weight: Vital Signs (12 hours) Temp Pulse Resp BP Pulse Ox 01/11/18 11:08 97.4 F L 70 20 91/51 L 97 01/11/18 08:00 99.3 F 71 20 100 01/11/18 07:31 99.3 F 71 20 106/51 L 100 01/11/18 07:12 68 16 99 01/11/18 03:58 98.4 F 70 20 106/54 L 100 Weight Admit Weight 88.451 kg Weight 87.906 kg I&O: 01/10/18 01/11/18 01/12/18 06:59 06:59 06:59 Intake Total 459 1350 Output Total 300 800 Balance 159 550 Result Diagrams: 01/11/18 04:30 01/11/18 04:30 <Wilder Rodriguez - Last Filed: 01/11/18 13:03> Phys Exam - Physical Examination Constitutional: NAD (sitting up, eating breakfast) HEENT: PERRLA, moist MMs Neck: full ROM Respiratory: no wheezing Crackles at lung bases irregular rate, Gastrointestinal: soft, non-tender, no distention Musculoskeletal: no edema pulses abscent in left LLE No pain with palpation over previous fractured right fibula Neurological: normal sensation, moves all 4 limbs Psychiatric: normal affect, A&O x 3 Skin: normal turgor, cap refill <2 seconds <Ugo Mcdowell - Last Filed: 01/11/18 07:46> Dx/Plan (1) Osteomyelitis of left foot Code(s): M86.9 - OSTEOMYELITIS, UNSPECIFIED Status: Acute (2) Acute kidney injury superimposed on chronic kidney disease Code(s): N17.9 - ACUTE KIDNEY FAILURE, UNSPECIFIED; N18.9 - CHRONIC KIDNEY DISEASE, UNSPECIFIED Status: Acute (3) Hyponatremia Code(s): E87.1 - HYPO-OSMOLALITY AND HYPONATREMIA Status: Acute (4) Sepsis Code(s): A41.9 - SEPSIS, UNSPECIFIED ORGANISM Status: Acute (5) CAD (coronary artery disease) Code(s): I25.10 - ATHSCL HEART DISEASE OF [place] CORONARY ARTERY W/O ANG PCTRS Status: Chronic Qualifiers: Coronary Disease-Associated Artery/Lesion type: [place] artery [place] vs. transplanted heart: [place] heart Associated angina: without angina Qualified Code(s): I25.10 - Atherosclerotic heart disease of [place] coronary artery without angina pectoris (6) CHF (congestive heart failure) Code(s): I50.9 - HEART FAILURE, UNSPECIFIED Status: Chronic - Plan Plan: This is a 72 yo male with a PMH of Afib, CHF, CKD, HTN, DM, COPD, HLD Sepsis 2/2 osteomyelitis -Hypotension resolving. Pt. is on vanc and zosyn with random vanc (15.3) and pending vanc trough. Pt. has been responsive to IVFs, we will continue to monitor his fluid status vs. his vital signs for an appropriate stopping point of fluids. Blood cultures, urine, wound cultures are pending. UA is negative. EKG shows paced rhythm, CXR shows no acute process. We will continue monitoring vital signs Osteomyelitis -With failed outpt treatment of cellulitis with unknown abx. Wound care has been consulted. Dr. Underwood evaluated pt. and deemed that BKA was the most appropriate treatment for the ostoemyelitis. PtSheila quigley does not wish to pursue this avenue. We will work to get outpt. wound care set up with this pt. I contacted Dr. Mccormack, Pt. PCP and we discussed pt. and prognosis. He believe the best option is to push for a fdc. Hyponatremia -Improving, now 135 corrected. Pt. is on fluid restriction <1800 mL/day GAVIN on CKD -BUN/Cr 42/2.63 baseline creatinine appears to be around 2. Pt. is receiving fluids and we will continue to monitor Afib -Pt. is on warfarin at home and INR was therapeutic upon admission. Pt. has been switched to heparin pending any surgeries, pt. is now not going for surgery and has been switched back to warfarin. DM2 -Moderate SSI, continue home basal insulin, attempt tight glucose control to aid in wound healing CHF -Continue to monitor fluid status. Lasix held for hypotension. Pt. is down .5kg in wt and up 550 mL from yesterday. HLD -Continue home meds COPD -Duoneb, Continue prednisone Code: DNR Prophylaxis: none Family: none at bedside Disposition: home in 1-2 days <Ugo Mcdowell - Last Filed: 01/11/18 07:46> Attending Addendum - Attending Addendum Date/Time: 01/11/18 1251 I personally evaluated the patient and discussed the management with Dr. Mcdowell I agree with the History, Examination, Assessment and Plan documented above with any addition or exceptions noted below.Pleasant Gentleman continues with precarious volume status, when more hemodynamically stable can look into [place] rehab and continued wound therapy, patient with osteomyelitis per plain films of left foot with poor peripheral circulation. COPD would not make him a good candidate for hyperbaric oygen treatment .Patient is aware he ultimately may require amputation of leg at BKA level. Poor RFT precludes vascular study by contrast at this time. Opinion from ID regard benefit,choice ,route and length of treatment of antibiotics rec consult today, Blood sugars need improved control. <Wilder Rodriguez - Last Filed: 01/11/18 13:03>
[2018-01-11] MEDS: HumaLOG 300 UNITS/3 ML VIAL SC PRN (06:22)
[2018-01-11] MEDS: Mometasone/Formoterol 120 PUFF INHALER INH SCH ×2 (07:12→18:44)
[2018-01-11] MEDS: Ferrous Sulfate 325 MG TAB PO SCH ×2 (08:13→16:31)
[2018-01-11] MEDS: Furosemide 40 MG TAB PO SCH (08:13)
[2018-01-11] MEDS: Amiodarone 200 MG TAB PO SCH (08:13)
[2018-01-11] MEDS: Ascorbic Acid 500 mg Chewable Tablet PO SCH (08:13)
--- NOTE | 2018-01-11 09:34 | PRG ---
DATE OF SERVICE: 01/11/2018 SERVICE: Pulmonary Medicine. INTERVAL HISTORY: The patient is doing fine from a respiratory standpoint. He denies any current chest pain, nausea, vomiting, fevers or chills. He is actually breathing much better today. Otherwise, there has been no interval change to his condition. PHYSICAL EXAMINATION: VITAL SIGNS: Afebrile, pulse 71, blood pressure 106/51, respirations 20, saturation 100% on 2 liters nasal cannula. GENERAL: The patient is awake, alert, no apparent distress. LUNGS: Decent air entry. There are some dependent crackles present. I really do not appreciate prolonged expiratory phase or wheezing today. HEART: Normal rate, regular. ABDOMEN: Soft, nontender and nondistended. Bowel sounds are positive. MUSCULOSKELETAL: No cyanosis or clubbing. There is diffuse 2+ pitting throughout. He has got lesions on the bilateral feet. LABORATORY DATA: WBC 6.9, hemoglobin 11.6, platelets 196,000. Creatinine 2.63 and beautifully improving, BUN 42. Basic metabolic profile is otherwise unremarkable. Blood sugar ranges from 89-240. Urinalysis is unremarkable. Urine drug screen is negative. Random vancomycin level is 15.3. Blood cultures x2, body fluid culture, urine culture all remain negative today. IMAGING DATA: X-ray of the right foot demonstrates soft tissue swelling with no radiographic evidence of aggressive osseous destruction on the right side. That being said, there is known osteomyelitis of the left foot. ASSESSMENT: 1. Severe sepsis. 2. Osteomyelitis. 3. Chronic systolic heart failure with history of ventricular tachycardia arrest. 4. Acute kidney injury on chronic kidney disease, stage 4. 5. Type 2 diabetes mellitus. 6. Peripheral vascular disease. DISCUSSION AND PLAN: The patient is doing really quite well from a respiratory standpoint. We can consider downgrading him back to the telemetry unit. We get physical therapy involved with the patient today. Otherwise, supportive measures and antibiotics will be continued. FANY
[2018-01-11] MEDS: Warfarin Sodium 2 MG TAB PO SCH (16:31)
[2018-01-11 17:26] LABS: Vancomycin, Trough 20.2 ug/mL
[2018-01-11] MEDS: Vancomycin HCl 1.25 GM in Sodium Chloride 0.9% 250 ML 250 ML IVPB SCH (18:19)
[2018-01-11] MEDS: Insulin Glargine 60 UNITS in Pre-Filled Syringe 1 EACH SC SCH (20:59)
[2018-01-12] MEDS: Piperacillin/Tazobactam 2.25 GM in Sodium Chloride 0.9% 100 ML IVPB SCH ×4 (03:05→21:13)
[2018-01-12 05:22] LABS: #Eosinphils 0.3 thou/uL (0.0-0.7); #Lymphocytes 1.1 thou/uL (1.20-3.40); #Monocytes 0.8 thou/uL (0.11-0.59); #Neutrophils 5.5 thou/uL (1.40-6.50); %Basophils 0.6 % (0.0-1.0); %Eosinophils 3.6 % (0.0-10.0); %Lymphocytes 14.4 % (21.0-51.0); %Monocytes 9.9 % (0.0-10.0); %Neutrophils 71.5 % (42.0-75.0); Hemoglobin 11.5 g/dL (14.0-18.0); Mean Corpuscular Hemoglobin 30.1 pg (27.0-31.0); Mean Corpuscular Volume 91.2 fL (78.0-98.0); Mean Platelet Volume 6.6 fL (7.4-10.4); Platelet Count 194 thou/uL (130-400); RBC Distribution Width 15.3 % (11.5-14.5); Red Blood Cell (RBC) Count 3.83 mill/uL (4.70-6.10); White Blood Cell (WBC) Count 7.6 thou/uL (4.8-10.8)
[2018-01-12 05:37] LABS: Anion Gap 10 mmol/L (10-20); BUN (Urea Nitrogen) 31 mg/dL (8.4-25.7); Calc. Creatinine Clearance 36 mL/min (70-130); Calcium 8.8 mg/dL (7.8-10.44); Carbon Dioxide 28 mmol/L (23-31); Chloride 101 mmol/L (98-107); Estimated GFR-MDRD 29; Glucose 207 mg/dL (83-110); Potassium 4.3 mmol/L (3.5-5.1); Sodium 135 mmol/L (136-145)
--- NOTE | 2018-01-12 05:54 | PDOC.FM ---
- Subjective Subjective: Pt. states he did well overnight. He states that he is depressed this morning when thinking about his feet. He says he also does not want to be inside all the time at the retirement but is willing to do that if it is what it takes. He states that he did not talk to his yesterday about moving to the retirement. He states that he will today. Pt. denies chest pain, dyspnea, pain in his foot. He does state that his foot is itchy. - Objective MAR Reviewed: Yes Vital Signs & Weight: Vital Signs (12 hours) Temp Pulse Resp BP Pulse Ox 01/12/18 04:00 97.8 F 72 24 H 129/63 95 01/12/18 00:00 98.1 F 72 17 104/50 L 100 01/11/18 20:00 98.5 F 73 18 98 01/11/18 19:30 98.5 F 73 18 122/62 98 01/11/18 18:47 99 01/11/18 18:46 72 23 H 99 01/11/18 18:44 99 Weight Admit Weight 88.451 kg Weight 87.906 kg I&O: 01/10/18 01/11/18 01/12/18 06:59 06:59 06:59 Intake Total 459 1350 1450 Output Total 549 140 6282 Balance 159 550 350 Result Diagrams: 01/12/18 05:08 01/12/18 05:08 <Ugo Mcdowell - Last Filed: 01/12/18 07:42> - Objective Vital Signs & Weight: Vital Signs (12 hours) Temp Pulse Resp BP Pulse Ox 01/12/18 11:20 98.2 F 77 19 126/54 L 100 01/12/18 08:05 98.8 F 70 16 100 01/12/18 07:45 70 16 99 01/12/18 07:16 98.8 F 72 18 125/68 100 01/12/18 04:00 97.8 F 72 24 H 129/63 95 Weight Admit Weight 88.451 kg Weight 87.906 kg I&O: 01/11/18 01/12/18 01/13/18 06:59 06:59 06:59 Intake Total 1350 1450 Output Total 800 1100 Balance 550 350 Result Diagrams: 01/12/18 05:08 01/12/18 05:08 <Nehemiah Majano - Last Filed: 01/12/18 12:35> Phys Exam - Physical Examination Constitutional: NAD HEENT: PERRLA, moist MMs Neck: no JVD, full ROM Good air movement, crackles heard at bases Cardiovascular: RRR, no significant murmur Gastrointestinal: soft, non-tender, no distention, positive bowel sounds Musculoskeletal: no edema No pulses in left leg Neurological: normal sensation, moves all 4 limbs Psychiatric: A&O x 3 Deviation from normal: Slightly depressed affect Skin: normal turgor, cap refill <2 seconds <Ugo Mcdowell - Last Filed: 01/12/18 07:42> Dx/Plan (1) Osteomyelitis of left foot Code(s): M86.9 - OSTEOMYELITIS, UNSPECIFIED Status: Acute (2) Acute kidney injury superimposed on chronic kidney disease Code(s): N17.9 - ACUTE KIDNEY FAILURE, UNSPECIFIED; N18.9 - CHRONIC KIDNEY DISEASE, UNSPECIFIED Status: Acute (3) Hyponatremia Code(s): E87.1 - HYPO-OSMOLALITY AND HYPONATREMIA Status: Acute (4) Sepsis Code(s): A41.9 - SEPSIS, UNSPECIFIED ORGANISM Status: Acute (5) CAD (coronary artery disease) Code(s): I25.10 - ATHSCL HEART DISEASE OF [place] CORONARY ARTERY W/O ANG PCTRS Status: Chronic Qualifiers: Coronary Disease-Associated Artery/Lesion type: [place] artery [place] vs. transplanted heart: [place] heart Associated angina: without angina Qualified Code(s): I25.10 - Atherosclerotic heart disease of [place] coronary artery without angina pectoris (6) CHF (congestive heart failure) Code(s): I50.9 - HEART FAILURE, UNSPECIFIED Status: Chronic - Plan Plan: This is a 72 yo male with a PMH of Afib, CHF, CKD, HTN, DM, COPD, HLD Sepsis 2/2 osteomyelitis -Hypotension resolving. Pt. is on vanc and zosyn with random vanc (15.3) and pending vanc trough. Pt. has been responsive to IVFs, we will continue to monitor his fluid status vs. his vital signs for an appropriate stopping point of fluids. Blood cultures, urine, wound cultures are pending. UA is negative. EKG shows paced rhythm, CXR shows no acute process. We will continue monitoring vital signs Osteomyelitis -With failed outpt treatment of cellulitis with unknown abx. Wound care has been consulted. Dr. Underwood evaluated pt. and deemed that BKA was the most appropriate treatment for the ostoemyelitis. PtSheila quigley does not wish to pursue this avenue. We will work to get outpt. wound care set up with this pt. I contacted Dr. Mccormack, Pt. PCP and we discussed pt. and prognosis. He believe the best option is to push for a retirement. Hyponatremia -Improving, now 137 corrected. Pt. is on fluid restriction <1800 mL/day GAVIN on CKD -BUN/Cr . baseline creatinine appears to be around 2. Pt. is receiving fluids and we will continue to monitor Afib -Pt. is on warfarin at home and INR was therapeutic upon admission. Pt. has been switched to heparin pending any surgeries, pt. is now not going for surgery and has been switched back to warfarin. Pending AM INR DM2 -Moderate SSI, Will increase home basal insulin for better control, attempt tight glucose control to aid in wound healing CHF -Continue to monitor fluid status. Lasix held for hypotension. HLD -Continue home meds COPD -Duoneb, Continue prednisone Code: DNR Prophylaxis: none Family: none at bedside Disposition: home in 1-2 days Depending on patient's willingness to go to [place] for wound care and rehab <Ugo Mcdowell - Last Filed: 01/12/18 07:42> Attending Addendum - Attending Addendum Date/Time: 01/12/18 3689 I personally evaluated the patient and discussed the management with Dr. Mcdowell. I agree with the History, Examination, Assessment and Plan documented above with any addition or exceptions noted below. With his vascular disease, I do suspect that antibiotics will be effective. We will seek Dr Young's advice in this matter. His is ill and will be placed in a NH so he is favorable to this. Another option for consideration is hospice therapy. <Nehemiah Majano - Last Filed: 01/12/18 12:35>
[2018-01-12 06:05] LABS: INR-International Normal Ratio 1.4; Prothrombin Time 16.9 SEC (12.0-14.7)
[2018-01-12] MEDS: HumaLOG 300 UNITS/3 ML VIAL SC PRN ×2 (06:09→17:39)
[2018-01-12] MEDS: Mometasone/Formoterol 120 PUFF INHALER INH SCH ×2 (07:45→19:08)
[2018-01-12] MEDS: Ferrous Sulfate 325 MG TAB PO SCH ×2 (08:42→17:39)
[2018-01-12] MEDS: Amiodarone 200 MG TAB PO SCH (08:43)
[2018-01-12] MEDS: Furosemide 40 MG TAB PO SCH (08:43)
[2018-01-12] MEDS: Ascorbic Acid 500 mg Chewable Tablet PO SCH (08:43)
--- NOTE | 2018-01-12 13:56 | PRG ---
DATE OF SERVICE: 01/12/2018 SUBJECTIVE: Mr. Westbrook doing well, has no complaints. OBJECTIVE: VITAL SIGNS: Temperature 99.8, pulse 70, respiration 16, O2 sat 100%, blood pressure 125/68. HEENT: Unremarkable. NECK: No JVD. CHEST: Clear without wheeze or rhonchi. CARDIAC: S1 and S2 regular. ABDOMEN: Soft. EXTREMITIES: Left toe wound. LABORATORY DATA: White blood cell count 7.6, hematocrit 34.9, platelet count 194. INR 1.4. Sodium 135, potassium 4.3, chloride , BUN 31, creatinine 2.2, glucose 207. ASSESSMENT: 1. Sepsis, which is improved. 2. Osteomyelitis. 3. Chronic systolic heart failure with a history of V-tach arrest. 4. Acute kidney injury. 5. Diabetes mellitus. PLAN: The patient can be transferred to telemetry. Continue antibiotics.
--- NOTE | 2018-01-12 17:21 | CON ---
DATE OF CONSULTATION: 01/12/2018 REASON FOR CONSULTATION: Type 2 diabetes, sepsis and left foot inflammatory changes. HISTORY OF PRESENT ILLNESS: A 72-year-old who has a history of type 2 diabetes , COPD, and CKD as well as hypertension and coronary disease admitted with general malaise and a history of recent treatment for left foot inflammatory process with oral antimicrobial therapy in the outpatient setting. On arrival, he was tachycardic and hypotensive, given IV fluid bolus and started on broad spectrum coverage. The patient has had Pulmonary Medicine consultation. Dr. Srivastava evaluated the patient and felt that there was evidence of osteomyelitis of the foot and he probably had sepsis. Currently, Mr. White is awake. He appears in no distress. He is oriented, denies any headaches, no neck pain, no shortness of breath, no abdominal pain. He is voiding spontaneously. The patient also had evaluation by Dr. Underwood and he felt that he probably has both SFA and tibioperoneal disease bilaterally. Because of his elevated creatinine, angiography was felt to be prohibitive due to the risk of renal failure. He did think that his circulation was adequate for healing after ray amputation and he suggested below knee amputation. The patient declined that option. PAST MEDICAL HISTORY: Includes type 2 diabetes, hypertension, CKD, atrial fibrillation, and coronary artery disease with prior DC in 2008. PAST SURGICAL HISTORY: Appendectomy, AICD placement, cataract surgery. FAMILY HISTORY: Noncontributory. SOCIAL HISTORY: Quit smoking 2-3 months ago. CURRENT MEDICATIONS: Include Tylenol, DuoNeb, Cordarone, vitamin C, aspirin, ferrous sulfate, furosemide, insulin, Zosyn, warfarin. ALLERGIES: No drug allergy history. PHYSICAL EXAMINATION: VITAL SIGNS: T-max 98.5-98.8, blood pressure 120/50, pulse 77, respirations 19 , O2 sat 100. SKIN: Shows the area of ulceration and erythema around the first MPJ skin site , left foot. The area of erythema kind of wraps around the base of the left first toe and the distal forefoot medial aspect. The base of this ulcer measures about 0.9 cm. This has sort of a reddish scab covering it. There is evidence of hyperkeratosis with fissuring at the base of the left foot. Loss of hair and dermal thinning, the patient has a peripheral IV access and voiding spontaneously. No lymphadenopathy. HEENT: Ocular movements conjugate. Numerous missing teeth. The lower gum disease, gum resorption. NECK: Supple, no jugular vein distention. LUNGS: Symmetric air entry, faint basilar inspiratory crackles, left AICD pocket site without any inflammatory changes. HEART: S1, S2, regular rate with a soft aortic murmur. No S3. ABDOMEN: Not distended. No evidence of ascites, no organomegaly or bladder distention. GENITOURINARY: Genital examination appears normal. EXTREMITIES: I could not feel any popliteal or dorsalis pedis pulses. Cap refill was delayed. He moves his extremities on command. He is oriented, follows commands, little bit of difficulty in telling me the name of the hospital and short term and long-term recollection is somewhat limited. LABORATORY DATA: White cell count of 7.8 and now 7.6, hemoglobin 11.5, platelets 194. Sodium 135, creatinine 2.23, started at 4.06 when he came in. Liver profile normal. CRP 3.73. BNP 468, albumin 3.6. Urinalysis fairly unremarkable. Toxic screen negative. Microbiology: Two sets of blood cultures negative. Left foot swab pending cultures. Urine culture no growth. IMAGING STUDIES: We have a foot x-ray with severe osteoarthritic changes first metatarsophalangeal joint, soft tissue swelling, but no radiographic evidence of aggressive osseous destruction. The left foot x-ray shows soft tissue wound with findings consistent with septic arthritis and osteomyelitis of the great toe MTP joint. ASSESSMENT: Type 2 diabetes with chronic renal insufficiency, coronary artery disease, peripheral vascular disease, and a chronic ulcer, left first MPJ skin site with evidence of septic arthritis and osteomyelitis of that area. The patient has declined a BKA amputation. DISCUSSION: Mr. Soto is not eligible for conservative management due to the presence of peripheral vascular disease and significant destruction of the bone. He unfortunately, cannot benefit from revascularization due to the presence of renal insufficiency and the risk of ESRD after iodine contrast studies required for revascularization. Recently, other types of contrast agents have been used for vascular studies including carbon dioxide imaging and I would inquire regarding the possibility of doing that, which would allow the consideration of revascularization procedures that might be amenable to improve supply to the extremity, if areas of focal stenosis were found and the larger vessels. I am not sure if this type of contrast agent allows enough detail to give us the proper anatomy for intervention. In the meantime, continue current antimicrobials at least for the time being. If the patient refuses amputation and if he is not eligible for any alternative imaging study with the intention of determining revascularization potential, then could envision discharge planning with oral antimicrobial therapy for a protracted period of time as a palliative intervention. MTDD
[2018-01-12] MEDS: Warfarin Sodium 2 MG TAB PO SCH (17:39)
[2018-01-12] MEDS: Vancomycin HCl 1.25 GM in Sodium Chloride 0.9% 250 ML 250 ML IVPB SCH (18:54)
[2018-01-12] MEDS: Insulin Glargine 60 UNITS in Pre-Filled Syringe 1 EACH SC SCH (21:11)
[2018-01-13] MEDS: Piperacillin/Tazobactam 2.25 GM in Sodium Chloride 0.9% 100 ML IVPB SCH ×4 (03:59→20:39)
[2018-01-13 04:55] LABS: #Basophils 0.1 thou/uL (0.0-0.2); #Eosinphils 0.3 thou/uL (0.0-0.7); #Lymphocytes 1.1 thou/uL (1.20-3.40); #Monocytes 0.9 thou/uL (0.11-0.59); #Neutrophils 5.3 thou/uL (1.40-6.50); %Basophils 0.6 % (0.0-1.0); %Eosinophils 4.1 % (0.0-10.0); %Lymphocytes 14.5 % (21.0-51.0); %Monocytes 11.3 % (0.0-10.0); %Neutrophils 69.4 % (42.0-75.0); Hemoglobin 11.2 g/dL (14.0-18.0); Mean Corpuscular HGB CONC 32.9 g/dL (32.0-36.0); Mean Corpuscular Hemoglobin 29.9 pg (27.0-31.0); Mean Corpuscular Volume 90.9 fL (78.0-98.0); Mean Platelet Volume 6.8 fL (7.4-10.4); Platelet Count 201 thou/uL (130-400); RBC Distribution Width 15.4 % (11.5-14.5); Red Blood Cell (RBC) Count 3.73 mill/uL (4.70-6.10); White Blood Cell (WBC) Count 7.7 thou/uL (4.8-10.8)
[2018-01-13 05:20] LABS: Anion Gap 11 mmol/L (10-20); BUN (Urea Nitrogen) 24 mg/dL (8.4-25.7); Calc. Creatinine Clearance 43 mL/min (70-130); Carbon Dioxide 27 mmol/L (23-31); Chloride 101 mmol/L (98-107); Estimated GFR-MDRD 35; Glucose 246 mg/dL (83-110); Potassium 4.1 mmol/L (3.5-5.1); Sodium 135 mmol/L (136-145)
--- NOTE | 2018-01-13 05:53 | PDOC.FM ---
- Subjective Subjective: Pt. states he is doing well today. He voices some concern for his who is back home in [facility]. He denies chest pain, SOB, dyspnea, light headedness, and nausea/vomiting. - Objective MAR Reviewed: Yes Vital Signs & Weight: Vital Signs (12 hours) Temp Pulse Resp BP Pulse Ox 01/13/18 04:00 97.7 F 72 18 121/69 99 01/13/18 00:00 98.7 F 70 18 117/56 L 97 01/12/18 20:00 98.8 F 70 20 91/38 L 100 01/12/18 19:09 98 01/12/18 19:08 98 Weight Admit Weight 88.451 kg Weight 86.999 kg I&O: 01/11/18 01/12/18 01/13/18 06:59 06:59 06:59 Intake Total 1350 1450 1720 Output Total 800 1100 1780 Balance 550 350 -60 Result Diagrams: 01/13/18 04:07 01/13/18 04:06 <Ugo Mcdowell - Last Filed: 01/13/18 07:51> - Objective Vital Signs & Weight: Vital Signs (12 hours) Temp Pulse Resp BP BP Pulse Ox 01/13/18 11:56 97.0 F L 75 27 H 119/66 96 01/13/18 07:46 97.4 F L 79 26 H 100 01/13/18 07:35 97.4 F L 79 26 H 115/54 L 95 01/13/18 06:29 74 18 99 01/13/18 06:27 74 18 99 01/13/18 04:00 97.7 F 72 18 121/69 99 Weight Admit Weight 88.451 kg Weight 87.906 kg I&O: 01/12/18 01/13/18 01/14/18 06:59 06:59 06:59 Intake Total 1450 1720 Output Total 1100 1780 Balance 350 -60 Result Diagrams: 01/13/18 04:07 01/13/18 04:06 <Nehemiah Majano - Last Filed: 01/13/18 13:12> Phys Exam - Physical Examination Constitutional: NAD HEENT: PERRLA, moist MMs Neck: no JVD, full ROM Respiratory: no wheezing Crackles heard at bases Cardiovascular: RRR 2/6 systolic murmur Gastrointestinal: soft, non-tender, no distention, positive bowel sounds Musculoskeletal: no edema pulses present on right lower extremity, still abscent on left Neurological: normal sensation, moves all 4 limbs Psychiatric: normal affect, A&O x 3 Skin: normal turgor, cap refill <2 seconds <Ugo Mcdowell - Last Filed: 01/13/18 07:51> Dx/Plan (1) Osteomyelitis of left foot Code(s): M86.9 - OSTEOMYELITIS, UNSPECIFIED Status: Acute (2) Acute kidney injury superimposed on chronic kidney disease Code(s): N17.9 - ACUTE KIDNEY FAILURE, UNSPECIFIED; N18.9 - CHRONIC KIDNEY DISEASE, UNSPECIFIED Status: Acute (3) Hyponatremia Code(s): E87.1 - HYPO-OSMOLALITY AND HYPONATREMIA Status: Acute (4) Sepsis Code(s): A41.9 - SEPSIS, UNSPECIFIED ORGANISM Status: Acute (5) CAD (coronary artery disease) Code(s): I25.10 - ATHSCL HEART DISEASE OF [place] CORONARY ARTERY W/O ANG PCTRS Status: Chronic Qualifiers: Coronary Disease-Associated Artery/Lesion type: [place] artery [place] vs. transplanted heart: [place] heart Associated angina: without angina Qualified Code(s): I25.10 - Atherosclerotic heart disease of [place] coronary artery without angina pectoris (6) CHF (congestive heart failure) Code(s): I50.9 - HEART FAILURE, UNSPECIFIED Status: Chronic - Plan Plan: This is a 72 yo male with a PMH of Afib, CHF, CKD, HTN, DM, COPD, HLD Sepsis 2/2 osteomyelitis -Hypotension resolving. Pt. is on vanc and zosyn with random vanc (15.3) and pending vanc trough. Pt. has been responsive to IVFs, we will continue to monitor his fluid status vs. his vital signs for an appropriate stopping point of fluids. Blood cultures, urine, wound cultures are pending. UA is negative. EKG shows paced rhythm, CXR shows no acute process. We will continue monitoring vital signs Osteomyelitis -With failed outpt treatment of cellulitis with unknown abx. Wound care has been consulted. Dr. Underwood evaluated pt. and deemed that BKA was the most appropriate treatment for the ostoemyelitis. PtSheila quigley does not wish to pursue this avenue. We will work to get outpt. wound care set up with this pt. I contacted Dr. Mccormack, Pt. PCP and we discussed pt. and prognosis. He believe the best option is to push for a jail. Dr. Young recommended either revascularization with other methods or palliative PO antibiotics. Will discuss goals today as well as hospice care. Hyponatremia -Improving, now 136.5 corrected. Pt. is on fluid restriction <1800 mL/day GAVIN on CKD -BUN/Cr baseline creatinine appears to be around 2. Pt. is receiving fluids and we will continue to monitor Afib -Pt. is on warfarin at home and INR was therapeutic upon admission. Pt. has been switched to heparin pending any surgeries, pt. is now not going for surgery and has been switched back to warfarin. Pending AM INR DM2 -Moderate SSI, Will increase home basal insulin for better control, attempt tight glucose control to aid in wound healing CHF -Continue to monitor fluid status. Lasix held for hypotension. HLD -Continue home meds COPD -Duoneb, Continue prednisone Code: DNR Prophylaxis: none Family: none at bedside Disposition: home in 1-2 days Depending on patient's willingness to go to [place] for wound care and rehab <Ugo Mcdowell - Last Filed: 01/13/18 07:51> Attending Addendum - Attending Addendum Date/Time: 01/13/18 1312 I personally evaluated the patient and discussed the management with Dr. Mcdowell. I agree with the History, Examination, Assessment and Plan documented above with any addition or exceptions noted below. <Nehemiah Majano - Last Filed: 01/13/18 13:12>
[2018-01-13] MEDS: HumaLOG 300 UNITS/3 ML VIAL SC PRN ×4 (06:03→21:26)
[2018-01-13] MEDS: Mometasone/Formoterol 120 PUFF INHALER INH SCH ×2 (06:29→19:14)
[2018-01-13] MEDS: Amiodarone 200 MG TAB PO SCH (08:34)
[2018-01-13] MEDS: Furosemide 40 MG TAB PO SCH (08:34)
[2018-01-13] MEDS: Ascorbic Acid 500 mg Chewable Tablet PO SCH (08:34)
[2018-01-13] MEDS: Ferrous Sulfate 325 MG TAB PO SCH ×2 (08:34→17:27)
--- NOTE | 2018-01-13 11:25 | PRG ---
DATE OF SERVICE: 01/13/2018 SUBJECTIVE: He is doing okay, had no complaints. OBJECTIVE: VITAL SIGNS: Temperature 97.4, pulse 79, respirations 26, O2 saturation 100% on 2 liters, blood pres sure 115/54. HEENT: Unremarkable. NECK: No JVD. LUNGS: Clear. CARDIAC: S1 and S2 regular. ABDOMEN: Soft. EXTREMITIES: Left toe bandage in place. LABORATORY DATA: White blood cell count 7.7, hematocrit 33.9, platelet count 201. Sodium 135, potas sium 4.1, chloride 101, CO2 27, BUN 24, creatinine 1.8, glucose 246. ASSESSMENT: 1. Peripheral vascular disease/cellulitis, osteomyelitis 2. Chronic systolic heart failure with history of V-tach arrest. PLAN: The patient will continue antibiotics. No further recommendations.
[2018-01-13] MEDS: Warfarin Sodium 2 MG TAB PO SCH (17:27)
[2018-01-13] MEDS: Vancomycin HCl 1.25 GM in Sodium Chloride 0.9% 250 ML 250 ML IVPB SCH (17:27)
[2018-01-13 17:29] LABS: Vancomycin, Trough 25.3 ug/mL
[2018-01-13] MEDS: Insulin Glargine 60 UNITS in Pre-Filled Syringe 1 EACH SC SCH (20:38)
[2018-01-14] MEDS: Piperacillin/Tazobactam 2.25 GM in Sodium Chloride 0.9% 100 ML IVPB SCH ×4 (03:57→21:03)
[2018-01-14 04:12] LABS: #Eosinphils 0.4 thou/uL (0.0-0.7); #Lymphocytes 1.1 thou/uL (1.20-3.40); #Monocytes 0.8 thou/uL (0.11-0.59); #Neutrophils 5.4 thou/uL (1.40-6.50); %Basophils 0.4 % (0.0-1.0); %Eosinophils 5.4 % (0.0-10.0); %Lymphocytes 13.8 % (21.0-51.0); %Monocytes 10.2 % (0.0-10.0); %Neutrophils 70.2 % (42.0-75.0); Hemoglobin 11.4 g/dL (14.0-18.0); Mean Corpuscular HGB CONC 33.3 g/dL (32.0-36.0); Mean Corpuscular Hemoglobin 30.5 pg (27.0-31.0); Mean Corpuscular Volume 91.5 fL (78.0-98.0); Mean Platelet Volume 6.6 fL (7.4-10.4); Platelet Count 198 thou/uL (130-400); RBC Distribution Width 15.4 % (11.5-14.5); Red Blood Cell (RBC) Count 3.72 mill/uL (4.70-6.10); White Blood Cell (WBC) Count 7.7 thou/uL (4.8-10.8)
[2018-01-14 04:31] LABS: Anion Gap 13 mmol/L (10-20); BUN (Urea Nitrogen) 26 mg/dL (8.4-25.7); Calc. Creatinine Clearance 44 mL/min (70-130); Carbon Dioxide 26 mmol/L (23-31); Chloride 98 mmol/L (98-107); Estimated GFR-MDRD 37; Glucose 292 mg/dL (83-110); Potassium 4.2 mmol/L (3.5-5.1); Sodium 133 mmol/L (136-145)
[2018-01-14] MEDS: HumaLOG 300 UNITS/3 ML VIAL SC PRN ×3 (05:55→16:49)
--- NOTE | 2018-01-14 06:03 | PDOC.FM ---
- Subjective Subjective: This is a 72 yo M here for sepsis 2/2 to osteomyelitis, much improved. On exam this morning patient is resting comfortably in bed. He states he is doing well and ready to be placed in senior living with his . Per Hannah, we will contact CV surg about alternative contrast revascularization vs palliative abx. Patient is willing to undergo revascularlization and if the procedure cannot be done he understands he will need to be on antibiotics for an extended period of time. He endorses mild pain in his feet overnight. He denies chest pain, SOB, fever, NVD. - Objective MAR Reviewed: Yes Vital Signs & Weight: Vital Signs (12 hours) Temp Pulse Resp BP Pulse Ox 01/14/18 04:28 98.1 F 77 24 H 109/51 L 100 01/14/18 00:00 98.2 F 74 22 H 113/59 L 97 01/13/18 20:39 98.4 F 77 24 H 117/49 L 100 01/13/18 19:16 99 01/13/18 19:15 99 01/13/18 19:14 99 Weight Admit Weight 88.451 kg Weight 87.906 kg I&O: 01/12/18 01/13/18 01/14/18 06:59 06:59 06:59 Intake Total 1450 1720 1890 Output Total 1100 1780 775 Balance 350 -60 1115 Result Diagrams: 01/14/18 03:56 01/14/18 03:56 <Ludmila Garcia - Last Filed: 01/14/18 12:25> - Objective Vital Signs & Weight: Vital Signs (12 hours) Temp Pulse Resp BP BP Pulse Ox 01/14/18 15:34 97.6 F 84 26 H 127/69 97 01/14/18 11:50 97.8 F 74 25 H 109/66 95 01/14/18 08:00 97.6 F 84 26 H 01/14/18 07:30 97.8 F 74 29 H 125/73 97 01/14/18 04:28 98.1 F 77 24 H 109/51 L 100 Weight Admit Weight 88.451 kg Weight 87.906 kg I&O: 01/13/18 01/14/18 01/15/18 06:59 06:59 06:59 Intake Total 1720 2540 600 Output Total 1780 1250 300 Balance -60 1290 300 Result Diagrams: 01/14/18 03:56 01/14/18 03:56 <Yoselin Walton - Last Filed: 01/14/18 16:28> Phys Exam - Physical Examination Constitutional: NAD HEENT: PERRLA, moist MMs Neck: supple, full ROM Respiratory: no wheezing, no rales, no rhonchi, clear to auscultation bilateral Cardiovascular: RRR, no significant murmur Gastrointestinal: soft, non-tender, no distention, positive bowel sounds pulses present on RLE, absent pulses on LLE Psychiatric: normal affect, A&O x 3 Skin: no rash, normal turgor <Ludmila Garcia - Last Filed: 01/14/18 12:25> Dx/Plan (1) Acute kidney injury superimposed on chronic kidney disease Code(s): N17.9 - ACUTE KIDNEY FAILURE, UNSPECIFIED; N18.9 - CHRONIC KIDNEY DISEASE, UNSPECIFIED Status: Acute (2) Hyponatremia Code(s): E87.1 - HYPO-OSMOLALITY AND HYPONATREMIA Status: Acute (3) Osteomyelitis of left foot Code(s): M86.9 - OSTEOMYELITIS, UNSPECIFIED Status: Acute (4) Sepsis Code(s): A41.9 - SEPSIS, UNSPECIFIED ORGANISM Status: Acute (5) CHF (congestive heart failure) Code(s): I50.9 - HEART FAILURE, UNSPECIFIED Status: Chronic (6) COPD (chronic obstructive pulmonary disease) Status: Chronic (7) DM2 (diabetes mellitus, type 2) Status: Chronic Qualifiers: Diabetes mellitus custodial insulin use: with exterminator use Diabetes mellitus complication status: with kidney complications Diabetes mellitus complication detail: with chronic kidney disease Chronic kidney disease stage : stage 3 (moderate) Qualified Code(s): E11.22 - Type 2 diabetes mellitus with diabetic chronic kidney disease; N18.3 - Chronic kidney disease, stage 3 ( moderate); Z79.4 - assistant terminal manager (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 of insulin (8) Afib Code(s): I48.91 - UNSPECIFIED ATRIAL FIBRILLATION Status: Chronic Qualifiers: Atrial fibrillation type: chronic Qualified Code(s): I48.2 - Chronic atrial fibrillation (9) HLD (hyperlipidemia) Code(s): E78.5 - HYPERLIPIDEMIA, UNSPECIFIED Status: Acute - Plan Plan: This is a 72 yo male with a PMH of Afib, CHF, CKD, HTN, DM, COPD, HLD Sepsis 2/2 osteomyelitis - Hypotension resolvin-119/49-67 - Pt. is on vanc and zosyn with random vanc 15.3 and vanc trough 25.3. Per pharmacy - Patient's vanc dose will be held today. Decreased dose tomorrow. Draw vanc trough before 3rd dose. If discharged to [facility] will put in order for vanc trough to be drawn there. - Pt. has been responsive to IVFs, we will continue to monitor his fluid status vs. his vital signs for an appropriate stopping point of fluids. - Blood cultures, urine, wound cultures neg. UA is negative. - EKG shows paced rhythm, CXR shows no acute process. - We will continue monitoring vital signs Osteomyelitis - With failed outpt treatment of cellulitis with unknown abx. - Wound care has been consulted. - Dr. Underwood evaluated pt. and deemed that BKA was the most appropriate treatment for the ostoemyelitis. PtSheila quigley does not wish to pursue this avenue. We will work to get outpt. wound care set up with this pt. - Dr. Mccormack contacted: Pt. PCP and discussed pt. and prognosis. He believes the best option is to push for a senior living. - Dr. Young recommended either revascularization with alternative contrast agents or palliative PO antibiotics - Will contact CV surg about revascularization options - Will discuss d/c plan with case management Hyponatremia - Improving, now 138 corrected - Pt. is on fluid restriction <2000 mL/day GAVIN on CKD - BUN/Cr 24/1.87 baseline creatinine appears to be around 2. Today BUN/Cr 26/ 1.82 - Pt. receiving fluids and will continue to monitor Afib -Pt. is on warfarin at home and INR was therapeutic upon admission. Pt is not going for surgery and has been switched back to warfarin DM2 - Moderate SSI - Glucose elevated at 292 today: increased glargine to 65u CHF - Continue to monitor fluid status. Lasix continue to be held. - diet: fluid restrict HLD -Continue home meds COPD -Duoneb, Continue prednisone Code: DNR Prophylaxis: none Family: none at bedside Disposition: [facility] in 1-2 days for wound care and rehab <Ludmila Garcia - Last Filed: 01/14/18 12:25> Attending Addendum - Attending Addendum Date/Time: 01/14/18 2873 I personally evaluated the patient and discussed the management with Dr. Garcia. I agree with the History, Examination, Assessment and Plan documented above with any addition or exceptions noted below. Will try to see if alternative imaging studies are an option. Case management is working on placement for the patient. Vanc is supratherapeutic and we will adjust dosing. Renal function is slightly improved. <Yoselin Walton - Last Filed: 01/14/18 16:28>
[2018-01-14] MEDS: Mometasone/Formoterol 120 PUFF INHALER INH SCH ×2 (06:46→19:33)
[2018-01-14] MEDS: Amiodarone 200 MG TAB PO SCH (11:37)
[2018-01-14] MEDS: Furosemide 40 MG TAB PO SCH (11:37)
[2018-01-14] MEDS: Ascorbic Acid 500 mg Chewable Tablet PO SCH (11:37)
[2018-01-14] MEDS: Ferrous Sulfate 325 MG TAB PO SCH ×2 (11:38→16:47)
--- NOTE | 2018-01-14 12:52 | PRG ---
DATE OF SERVICE: 01/14/2018 SERVICE: Pulmonary Medicine INTERVAL HISTORY: The patient is doing fine from a respiratory standpoint. He is breathing comforta j luis on room air. He denies any chest pain, nausea, vomiting, fevers or chills. There have been no e vents on telemetry over the weekend. He has no specific complaints. There were no events reported b y nursing. PHYSICAL EXAMINATION: VITAL SIGNS: Afebrile, pulse 74, blood pressure 109/66, respirations 25, saturation 95% on room air. GENERAL: The patient is awake, alert, in no apparent distress. LUNGS: Decent air entry. There is no prolonged expiratory phase. Dependent crackles are identified . No rhonchi or wheezing appreciated. HEART: Normal rate, regular. ABDOMEN: Soft, nontender, nondistended. Bowel sounds are positive. MUSCULOSKELETAL: No cyanosis or clubbing. No pitting in the bilateral lower extremities. NEUROLOGIC: Grossly nonfocal. LABORATORY DATA: WBC 7.7, hemoglobin 11.4, platelets 198,000. Creatinine 1.82, which is roughly bas ayaka for him. Basic metabolic profile is otherwise unremarkable. Blood cultures x2, body fluid cul ture, urine culture all remain negative to date. ASSESSMENT: 1. Severe sepsis. 2. Osteomyelitis. 3. Chronic systolic heart failure with history of ventricular tachycardia arrest. 4. Acute kidney injury on chronic kidney disease 4, resolved to baseline. 5. Type 2 diabetes mellitus. 6. Peripheral vascular disease, severe. DISCUSSION AND PLAN: The patient is doing fine for the last 3 days from the respiratory standpoint. At this point, he can be transitioned back to the floor. We will watch him on telemetry. He has no further requirements for inpatient Pulmonary or Critical Care opinion at this time, and I will sign off when he leaves the [facility].
[2018-01-14 13:16] LABS: INR-International Normal Ratio 1.3; Prothrombin Time 15.8 SEC (12.0-14.7)
[2018-01-14] MEDS: Warfarin Sodium 2 MG TAB PO SCH (16:47)
[2018-01-14] MEDS ORDERED: Warfarin Sodium 2.5 MG TAB PO SCH (17:45)
[2018-01-14] MEDS ORDERED: Vancomycin HCl 1 GM in Premix Bag 1 BAG IVPB SCH (20:00)
[2018-01-14] MEDS: Insulin Glargine 65 UNITS in Pre-Filled Syringe 1 EACH SC SCH (21:00)
[2018-01-14] MEDS ORDERED: Melatonin 3 MG TAB PO PRN (23:56)
[2018-01-14] MEDS ORDERED: Doxepin HCl 10 MG CAP PO PRN (23:56)
[2018-01-15] MEDS ORDERED: Doxepin HCl 10 MG CAP PO PRN (00:28)
[2018-01-15] MEDS: Piperacillin/Tazobactam 2.25 GM in Sodium Chloride 0.9% 100 ML IVPB SCH ×4 (03:21→22:09)
--- NOTE | 2018-01-15 05:28 | PDOC.FM ---
- Subjective Subjective: This is a 72 yo M here initially for sepsis 2/2 to osteomyelitis, improved. Overnight, the patient requested something to help with sleep and was given doxepin and melatonin. On exam today, patient complains of mild foot pain, the same as yesterday. He has no other complaints at this time and understands that he will be going to a fci. We are awaiting approval from [facility]. He denies SOB, chest pain, abdominal pain, fever, NVD. - Objective MAR Reviewed: Yes Vital Signs & Weight: Vital Signs (12 hours) Temp Pulse Resp BP Pulse Ox 01/15/18 04:00 98.0 F 72 22 H 122/63 95 01/15/18 00:00 98.9 F 80 20 121/56 L 93 L 01/14/18 20:20 98.2 F 76 26 H 01/14/18 19:46 98.2 F 76 26 H 130/67 97 01/14/18 19:33 75 18 98 Weight Admit Weight 88.451 kg Weight 87.906 kg I&O: 01/13/18 01/14/18 01/15/18 06:59 06:59 06:59 Intake Total 1720 2540 1400 Output Total 1780 1250 900 Balance -60 1290 500 Result Diagrams: 01/15/18 04:45 01/15/18 04:45 <Ludmila Garcia - Last Filed: 01/15/18 11:34> - Objective Vital Signs & Weight: Vital Signs (12 hours) Temp Pulse Resp BP Pulse Ox 01/15/18 11:29 98.0 F 75 21 H 123/59 L 97 01/15/18 08:00 97.6 F 74 23 H 98 01/15/18 07:47 97.6 F 74 23 H 127/61 98 01/15/18 04:00 98.0 F 72 22 H 122/63 95 Weight Admit Weight 88.451 kg Weight 87.906 kg I&O: 01/14/18 01/15/18 01/16/18 06:59 06:59 06:59 Intake Total 2540 2050 Output Total 1250 1500 Balance 1290 550 Result Diagrams: 01/15/18 04:45 01/15/18 04:45 <Yoselin Walton - Last Filed: 01/15/18 13:01> Phys Exam - Physical Examination Constitutional: NAD patient sitting comfortably eating breakfast HEENT: PERRLA, moist MMs Neck: supple, full ROM Respiratory: no wheezing, no rales, no rhonchi, clear to auscultation bilateral Cardiovascular: RRR, no significant murmur Gastrointestinal: soft, non-tender, positive bowel sounds pulses absent in LLE, mild edema Neurological: non-focal, moves all 4 limbs decreased sensation in the LLE Psychiatric: normal affect, A&O x 3 Skin: no rash, normal turgor Deviation from normal: discoloration of dorsal hands -stable <Ludmila Garcia - Last Filed: 01/15/18 11:34> Dx/Plan (1) Acute kidney injury superimposed on chronic kidney disease Code(s): N17.9 - ACUTE KIDNEY FAILURE, UNSPECIFIED; N18.9 - CHRONIC KIDNEY DISEASE, UNSPECIFIED Status: Acute (2) Hyponatremia Code(s): E87.1 - HYPO-OSMOLALITY AND HYPONATREMIA Status: Acute (3) Osteomyelitis of left foot Code(s): M86.9 - OSTEOMYELITIS, UNSPECIFIED Status: Acute (4) Sepsis Code(s): A41.9 - SEPSIS, UNSPECIFIED ORGANISM Status: Acute (5) CHF (congestive heart failure) Code(s): I50.9 - HEART FAILURE, UNSPECIFIED Status: Chronic (6) COPD (chronic obstructive pulmonary disease) Status: Chronic (7) DM2 (diabetes mellitus, type 2) Status: Chronic Qualifiers: Diabetes mellitus termite control servicer insulin use: with fdc use Diabetes mellitus complication status: with kidney complications Diabetes mellitus complication detail: with chronic kidney disease Chronic kidney disease stage : stage 3 (moderate) Qualified Code(s): E11.22 - Type 2 diabetes mellitus with diabetic chronic kidney disease; N18.3 - Chronic kidney disease, stage 3 ( moderate); Z79.4 - correction (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 of insulin (8) Afib Code(s): I48.91 - UNSPECIFIED ATRIAL FIBRILLATION Status: Chronic Qualifiers: Atrial fibrillation type: chronic Qualified Code(s): I48.2 - Chronic atrial fibrillation (9) HLD (hyperlipidemia) Code(s): E78.5 - HYPERLIPIDEMIA, UNSPECIFIED Status: Acute - Plan Plan: Plan: This is a 72 yo male with a PMH of Afib, CHF, CKD, HTN, DM, COPD, HLD - initially presented for sepsis 2/2 to osteomyelitis of left foot. Patient refused BKA. Now awaiting placement at a fci. Sepsis 2/2 osteomyelitis - Hypotension resolvins/50-60s - Pt. is on vanc and zosyn with random vanc 15.3 and vanc trough 25.3. Per pharmacy - Patient's vanc dose will be decreased today. Draw vanc trough before 3rd dose. Once discharged to [place] will put in order for vanc trough to be drawn there. - Pt. has been responsive to IVFs, we will continue to monitor his fluid status vs. his vital signs for an appropriate stopping point of fluids. - Blood cultures, urine, wound cultures remain neg. UA is negative. - EKG shows paced rhythm, CXR shows no acute process. - We will continue monitoring vital signs Osteomyelitis - With failed outpt treatment of cellulitis with unknown abx. - Wound care has been consulted. - Dr. Underwood evaluated pt. and deemed that BKA was the most appropriate treatment for the ostoemyelitis. Pt. currently does not wish to pursue this avenue. We will work to get outpt. wound care set up with this pt. Alternative Co2 revascularization not possible in the patient as it would not give enough detail. - Dr. Mccormack contacted and discussed pt. and prognosis. He believes the best option is to push for a fci. - Dr. Young recommended palliative PO antibiotics - Will discharge on cipro and augmentin for 4 weeks - Will discuss d/c plan with case management Hyponatremia - Improving, now 138 corrected - Pt. is on fluid restriction <2000 mL/day GAVIN on CKD - BUN/Cr 24/1.87 baseline creatinine appears to be around 2. Today BUN/Cr 26/ 1.82 - Pt. receiving fluids and will continue to monitor Afib -Pt. is on warfarin at home and INR was therapeutic upon admission. Pt is not going for surgery and has been switched back to warfarin. Increased dose of warfarin as INR came back subtherapeutic at 1.3. Will recheck. DM2 - Moderate SSI - Glucose elevated at 292 today: increased glargine to 65u. Improved glucose today. Consider increasing dose. CHF - Continue to monitor fluid status. Lasix continue to be held. - diet: fluid restrict HLD -Continue home meds COPD -Duoneb, Continue prednisone Code: DNR Prophylaxis: none Family: none at bedside Disposition: home today pending placement at [facility] <Ludmila Garcia - Last Filed: 01/15/18 11:34> Attending Addendum - Attending Addendum Date/Time: 01/15/18 1300 I personally evaluated the patient and discussed the management with Dr. Garcia. I agree with the History, Examination, Assessment and Plan documented above with any addition or exceptions noted below. Pt is unable to have additional imaging studies per CV surg. He is otherwise doing well and will be discharged on antibiotics per Dr. Young' recommendations. <Yoselin Walton - Last Filed: 01/15/18 13:01>
[2018-01-15 05:38] LABS: #Basophils 0.1 thou/uL (0.0-0.2); #Eosinphils 0.3 thou/uL (0.0-0.7); #Lymphocytes 1.2 thou/uL (1.20-3.40); #Monocytes 0.7 thou/uL (0.11-0.59); #Neutrophils 3.6 thou/uL (1.40-6.50); %Basophils 1.1 % (0.0-1.0); %Eosinophils 4.7 % (0.0-10.0); %Lymphocytes 21.2 % (21.0-51.0); Hemoglobin 11.3 g/dL (14.0-18.0); Mean Corpuscular HGB CONC 33.2 g/dL (32.0-36.0); Mean Corpuscular Hemoglobin 30.3 pg (27.0-31.0); Mean Corpuscular Volume 91.3 fL (78.0-98.0); Mean Platelet Volume 6.8 fL (7.4-10.4); Platelet Count 213 thou/uL (130-400); RBC Distribution Width 15.2 % (11.5-14.5); Red Blood Cell (RBC) Count 3.72 mill/uL (4.70-6.10); White Blood Cell (WBC) Count 5.9 thou/uL (4.8-10.8)
[2018-01-15 05:47] LABS: Anion Gap 13 mmol/L (10-20); BUN (Urea Nitrogen) 28 mg/dL (8.4-25.7); Calc. Creatinine Clearance 49 mL/min (70-130); Calcium 9.1 mg/dL (7.8-10.44); Carbon Dioxide 28 mmol/L (23-31); Chloride 101 mmol/L (98-107); Estimated GFR-MDRD 41; Potassium 3.8 mmol/L (3.5-5.1); Sodium 138 mmol/L (136-145)
[2018-01-15] MEDS: Dextrose 50% Abboject 50 ML SYRINGE SLOW IVP PRN (05:53)
[2018-01-15 05:54] LABS: Glucose 50 mg/dL (83-110)
[2018-01-15] MEDS: Mometasone/Formoterol 120 PUFF INHALER INH SCH ×2 (07:07→18:12)
[2018-01-15] MEDS: Ascorbic Acid 500 mg Chewable Tablet PO SCH (09:30)
[2018-01-15] MEDS: Ferrous Sulfate 325 MG TAB PO SCH ×2 (09:31→16:00)
[2018-01-15] MEDS: Amiodarone 200 MG TAB PO SCH (09:31)
[2018-01-15] MEDS: Furosemide 40 MG TAB PO SCH (09:31)
[2018-01-15] MEDS: HumaLOG 300 UNITS/3 ML VIAL SC PRN (11:14)
[2018-01-15 13:05] VITALS: BMI 27.5
[2018-01-15] MEDS: Warfarin Sodium 2.5 MG TAB PO SCH (16:00)
--- NOTE | 2018-01-15 18:08 | PRG ---
DATE OF SERVICE: 01/15/2018 SERVICE: Pulmonary Medicine. INTERVAL HISTORY: The patient is doing fine from a respiratory standpoint. He is breathing comforta j luis. He has no complaints of chest pain, nausea, vomiting, fevers or chills. Otherwise, there has b een no interval change to his condition. PHYSICAL EXAMINATION: VITAL SIGNS: Afebrile, pulse 82, blood pressure 128/61, respirations 16, saturation 97% on room air. GENERAL: The patient is awake, alert, no apparent distress. LUNGS: Excellent air entry. There is no prolonged expiratory phase. There is minimal dependent crane helper ckles present. HEART: Normal rate, regular. ABDOMEN: Soft, nontender, nondistended. Bowel sounds are positive. MUSCULOSKELETAL: No cyanosis or clubbing. There is no pitting in the bilateral lower extremities. NEUROLOGIC: Grossly nonfocal. LABORATORY DATA: Creatinine 1.64 and down trending. Blood sugars ranged from 166-185. CBC is compl etely stable for many days now. Vancomycin trough was previously 25.3. Blood cultures x2 and urine culture remain negative. Body fluid culture on the left foot is negative as well. Echocardiogram de monstrates normal ejection fraction. Moderately dilated left atrium. No vegetations are otherwise i dentified. ASSESSMENT: 1. Severe sepsis. 2. Osteomyelitis. 3. Chronic systolic heart failure with history of ventricular tachycardia arrest. 4. Acute kidney injury on chronic kidney disease, resolved to baseline. 5. Type 2 diabetes mellitus. 6. Peripheral vascular disease, severe. DISCUSSION AND PLAN: From my perspective, the patient has no further requirements for IMCU admission . He can go to telemetry or be discharged from the hospital if everything is situated. I will victorina nue to follow if he remains in this location for the time being.
[2018-01-15] MEDS ORDERED: Vancomycin HCl 1 GM in Premix Bag 1 BAG IVPB SCH (20:00)
[2018-01-15] MEDS: Insulin Glargine 65 UNITS in Pre-Filled Syringe 1 EACH SC SCH (21:23)
[2018-01-15] MEDS: Acetaminophen 325 MG TAB PO PRN (23:21)
[2018-01-16] MEDS: Piperacillin/Tazobactam 2.25 GM in Sodium Chloride 0.9% 100 ML IVPB SCH ×3 (03:26→15:53)
[2018-01-16 04:59] LABS: #Basophils 0.1 thou/uL (0.0-0.2); #Eosinphils 0.3 thou/uL (0.0-0.7); #Lymphocytes 1.7 thou/uL (1.20-3.40); #Monocytes 0.8 thou/uL (0.11-0.59); #Neutrophils 4.4 thou/uL (1.40-6.50); %Basophils 0.9 % (0.0-1.0); %Eosinophils 3.7 % (0.0-10.0); %Lymphocytes 23.4 % (21.0-51.0); %Monocytes 10.6 % (0.0-10.0); %Neutrophils 61.4 % (42.0-75.0); Mean Corpuscular HGB CONC 33.7 g/dL (32.0-36.0); Mean Corpuscular Hemoglobin 30.8 pg (27.0-31.0); Mean Corpuscular Volume 91.5 fL (78.0-98.0); Mean Platelet Volume 6.4 fL (7.4-10.4); Platelet Count 219 thou/uL (130-400); RBC Distribution Width 15.3 % (11.5-14.5); Red Blood Cell (RBC) Count 3.57 mill/uL (4.70-6.10); White Blood Cell (WBC) Count 7.1 thou/uL (4.8-10.8)
[2018-01-16 05:23] LABS: Anion Gap 13 mmol/L (10-20); BUN (Urea Nitrogen) 26 mg/dL (8.4-25.7); Calc. Creatinine Clearance 50 mL/min (70-130); Calcium 8.9 mg/dL (7.8-10.44); Carbon Dioxide 28 mmol/L (23-31); Chloride 101 mmol/L (98-107); Estimated GFR-MDRD 43; Glucose 80 mg/dL (83-110); Potassium 3.6 mmol/L (3.5-5.1); Sodium 138 mmol/L (136-145)
--- NOTE | 2018-01-16 06:00 | PDOC.FM ---
- Subjective Subjective: This is a 72 yo M here initially for sepsis 2/2 to osteomyelitis, improved. He has no other complaints at this time and understands that he will be going to a senior care. States his feet feel much better today and he was not having any pain while walking with his walker. We are awaiting approval from [facility] as his placement was delayed for hx of no payment. He denies SOB, chest pain, abdominal pain, fever, NVD - Objective MAR Reviewed: Yes Vital Signs & Weight: Vital Signs (12 hours) Temp Pulse Resp BP BP Pulse Ox 01/16/18 05:10 98.8 F 74 20 120/74 93 L 01/16/18 00:00 98.7 F 68 20 113/70 95 01/15/18 20:00 98.4 F 83 18 111/72 95 01/15/18 18:10 75 16 98 Weight Admit Weight 88.451 kg Weight 86.999 kg I&O: 01/14/18 01/15/18 01/16/18 06:59 06:59 06:59 Intake Total 2540 2050 920 Output Total 1250 1500 710 Balance 1290 550 210 Result Diagrams: 01/16/18 04:12 01/16/18 04:12 <Ludmila Garcia - Last Filed: 01/16/18 11:52> - Objective Vital Signs & Weight: Vital Signs (12 hours) Temp Pulse Resp BP Pulse Ox 01/16/18 16:27 98 F 67 16 115/74 94 L 01/16/18 08:00 98.6 F 84 16 93 L 01/16/18 07:37 98.6 F 84 16 122/74 93 L 01/16/18 06:40 72 16 94 L Weight Admit Weight 88.451 kg Weight 86.001 kg I&O: 01/15/18 01/16/18 01/17/18 06:59 06:59 06:59 Intake Total 2050 1520 Output Total 1500 1610 Balance 550 -90 Result Diagrams: 01/16/18 04:12 01/16/18 04:12 <Yoselin Walton - Last Filed: 01/16/18 18:11> Phys Exam - Physical Examination Constitutional: NAD HEENT: PERRLA, moist MMs, sclera anicteric Neck: supple, full ROM Respiratory: no wheezing, clear to auscultation bilateral Cardiovascular: RRR, no significant murmur Gastrointestinal: soft, non-tender, positive bowel sounds absent pulses in LLE Neurological: non-focal, normal sensation Psychiatric: normal affect, A&O x 3 <JoseLudmila - Last Filed: 01/16/18 11:52> Dx/Plan (1) Acute kidney injury superimposed on chronic kidney disease Code(s): N17.9 - ACUTE KIDNEY FAILURE, UNSPECIFIED; N18.9 - CHRONIC KIDNEY DISEASE, UNSPECIFIED Status: Acute (2) Hyponatremia Code(s): E87.1 - HYPO-OSMOLALITY AND HYPONATREMIA Status: Acute (3) Osteomyelitis of left foot Code(s): M86.9 - OSTEOMYELITIS, UNSPECIFIED Status: Acute (4) Sepsis Code(s): A41.9 - SEPSIS, UNSPECIFIED ORGANISM Status: Acute (5) CHF (congestive heart failure) Code(s): I50.9 - HEART FAILURE, UNSPECIFIED Status: Chronic (6) COPD (chronic obstructive pulmonary disease) Status: Chronic (7) DM2 (diabetes mellitus, type 2) Status: Chronic Qualifiers: Diabetes mellitus remote computer terminal operator insulin use: with remote computer terminal operator use Diabetes mellitus complication status: with kidney complications Diabetes mellitus complication detail: with chronic kidney disease Chronic kidney disease stage : stage 3 (moderate) Qualified Code(s): E11.22 - Type 2 diabetes mellitus with diabetic chronic kidney disease; N18.3 - Chronic kidney disease, stage 3 ( moderate); Z79.4 - moth exterminator (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 of insulin (8) Afib Code(s): I48.91 - UNSPECIFIED ATRIAL FIBRILLATION Status: Chronic Qualifiers: Atrial fibrillation type: chronic Qualified Code(s): I48.2 - Chronic atrial fibrillation (9) HLD (hyperlipidemia) Code(s): E78.5 - HYPERLIPIDEMIA, UNSPECIFIED Status: Acute - Plan Plan: This is a 72 yo male with a PMH of Afib, CHF, CKD, HTN, DM, COPD, HLD - initially presented for sepsis 2/2 to osteomyelitis of left foot. Patient refused BKA. Now awaiting placement at a senior care - pt has BCBS so hopeful to be placed today. Sepsis 2/2 osteomyelitis - Hypotension resolvins/70s - Pt. is on vanc and zosyn with random vanc 15.3 and vanc trough 25.3. Per pharmacy - Patient's vanc dose will be decreased today. Draw vanc trough before 3rd dose. Once discharged to [facility] will put in order for vanc trough to be drawn there. - Pt. has been responsive to IVFs, we will continue to monitor his fluid status vs. his vital signs for an appropriate stopping point of fluids. - Blood cultures, urine, wound cultures remain neg. UA is negative. - EKG shows paced rhythm, CXR shows no acute process. - We will continue monitoring vital signs Osteomyelitis - With failed outpt treatment of cellulitis with unknown abx. - Wound care has been consulted. - Dr. Underwood evaluated pt. and deemed that BKA was the most appropriate treatment for the ostoemyelitis. Pt. currently does not wish to pursue this avenue. We will work to get outpt. wound care set up with this pt. Alternative Co2 revascularization not possible in the patient as it would not give enough detail. - Dr. Mccormack contacted and discussed pt. and prognosis. He believes the best option is to push for a senior care. - Dr. Young recommended palliative PO antibiotics - Will discharge on cipro and augmentin for 4 weeks - Will discuss d/c plan with case management Hyponatremia - Improved - Pt. is on fluid restriction <2000 mL/day GAVIN on CKD - Resolving. BUN/Cr 24/1.87 baseline creatinine appears to be around 2. Today BUN/Cr 26/1.58 - Will continue to monitor Afib -Pt. is on warfarin at home and INR was therapeutic upon admission. Pt is not going for surgery and has been switched back to warfarin. Increased dose of warfarin as INR came back subtherapeutic at 1.3. Will recheck. DM2 - Moderate SSI - Glucose elevated at 292 today: increased glargine to 65u. Improved glucose today. Consider increasing dose. CHF - Continue to monitor fluid status. Lasix continue to be held. - diet: fluid restrict HLD -Continue home meds COPD -Duoneb, Continue prednisone Code: DNR Prophylaxis: none Family: none at bedside Disposition: home today pending placement at [facility]. <Ludmila Garcia - Last Filed: 01/16/18 11:52> Attending Addendum - Attending Addendum Date/Time: 01/16/181810 I personally evaluated the patient and discussed the management with Dr. Garcia. I agree with the History, Examination, Assessment and Plan documented above with any addition or exceptions noted below. The patient is doing well. There is a question on placement and whether he still has skilled days available. Case management is helping with d/c planning. Pt will continue antibiotics. <Yoselin Walton - Last Filed: 01/16/18 18:11>
[2018-01-16] MEDS: Mometasone/Formoterol 120 PUFF INHALER INH SCH ×2 (06:40→18:29)
[2018-01-16] MEDS: Amiodarone 200 MG TAB PO SCH (08:04)
[2018-01-16] MEDS: Ferrous Sulfate 325 MG TAB PO SCH ×2 (08:04→15:53)
[2018-01-16] MEDS: Ascorbic Acid 500 mg Chewable Tablet PO SCH (08:04)
[2018-01-16] MEDS: Furosemide 40 MG TAB PO SCH (08:05)
[2018-01-16] MEDS: HumaLOG 300 UNITS/3 ML VIAL SC PRN ×2 (12:03→17:07)
[2018-01-16] MEDS: Warfarin Sodium 2.5 MG TAB PO SCH (15:54)
--- NOTE | 2018-01-16 17:23 | PRG ---
DATE OF SERVICE: 01/16/2018 SUBJECTIVE: Mr. Soto is transferred to the floor. He has had no complaints. Denies any headaches, no shortness of breath or abdominal pain, no foot pain. OBJECTIVE: VITAL SIGNS: Essentially normal. EXTREMITIES: The left foot first MPJ skin site with marked improvement in inflammatory changes. LABORATORY DATA: White cell count 7.1, hemoglobin 11. Chemistry with a creatinine of 1.58, which is markedly improved from admission. Microbiology, the aspirate from the foot with negative cultures. Previous cultures from the toe with MRSA, Pseudomonas aeruginosa, Enterococcus. Pseudomonas aerugin prabhjot was a very broad susceptibility profile. 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 The patient has declined amputation and he is not going to have vascular study done, it looks li ke. I would at this time recommend oral Cipro and minocycline for discharge planning. Treat for tiffany roximately 4-6 weeks. Followup imaging studies and CBC, CRP and comprehensive metabolic panel.
[2018-01-16] MEDS: Cipro 250 MG TAB PO SCH (20:15)
[2018-01-16] MEDS: Insulin Glargine 65 UNITS in Pre-Filled Syringe 1 EACH SC SCH (20:16)
[2018-01-17] MEDS: Acetaminophen 325 MG TAB PO PRN (00:49)
[2018-01-17] MEDS: Cipro 250 MG TAB PO SCH (05:10)
[2018-01-17 05:11] LABS: #Eosinphils 0.2 thou/uL (0.0-0.7); #Lymphocytes 1.2 thou/uL (1.20-3.40); #Monocytes 0.5 thou/uL (0.11-0.59); %Eosinophils 3.6 % (0.0-10.0); %Lymphocytes 24.9 % (21.0-51.0); %Monocytes 10.1 % (0.0-10.0); %Neutrophils 60.4 % (42.0-75.0); Hemoglobin 11.2 g/dL (14.0-18.0); Mean Corpuscular HGB CONC 31.9 g/dL (32.0-36.0); Mean Corpuscular Hemoglobin 29.1 pg (27.0-31.0); Mean Corpuscular Volume 91.4 fL (78.0-98.0); Mean Platelet Volume 6.4 fL (7.4-10.4); Platelet Count 236 thou/uL (130-400); RBC Distribution Width 15.2 % (11.5-14.5); Red Blood Cell (RBC) Count 3.84 mill/uL (4.70-6.10); White Blood Cell (WBC) Count 4.9 thou/uL (4.8-10.8)
[2018-01-17 05:17] LABS: INR-International Normal Ratio 2.4; Prothrombin Time 26.2 SEC (12.0-14.7)
[2018-01-17 05:30] LABS: ALT (SGPT) 17 U/L (8-55); AST (SGOT) 18 U/L (5-34); Albumin 3.4 g/dL (3.4-4.8); Alkaline Phosphatase 83 U/L (40-150); Anion Gap 14 mmol/L (10-20); BUN (Urea Nitrogen) 28 mg/dL (8.4-25.7); Bilirubin, Total 0.4 mg/dL (0.2-1.2); CRP (Inflammatory) 5.63 mg/dL (= or < 0.5); Calc. Creatinine Clearance 46 mL/min (70-130); Calcium 9.4 mg/dL (7.8-10.44); Carbon Dioxide 27 mmol/L (23-31); Chloride 101 mmol/L (98-107); Estimated GFR-MDRD 39; Globulin 3.2 g/dL (2.4-3.5); Potassium 3.8 mmol/L (3.5-5.1); Protein, Total 6.6 g/dL (5.8-8.1); Sodium 138 mmol/L (136-145)
[2018-01-17 05:39] LABS: Glucose 48 mg/dL (83-110)
--- NOTE | 2018-01-17 05:57 | PDOC.FM ---
Addendum entered and electronically signed by Ludmila Garcia MD 01/17/18 11:44 : Patient has been placed at a SNF facility in [place], [place]. Patient agrees and understands. Ready for discharge today. Original Note: - Subjective Subjective: This is a 72 yo M here initially for sepsis 2/2 to osteomyelitis, improved. He has no other complaints at this time and understands that he will be going to a correction. States his feet feel much better today and he was not having any pain while walking with his walker. Patient was unable to be placed at SNF, so we will be sending him home with home health and home wound care. Patient is happy with this as he wants to be with his . He denies SOB, chest pain, abdominal pain, fever, NVD - Objective Vital Signs & Weight: Vital Signs (12 hours) Temp Pulse Resp BP Pulse Ox 01/17/18 04:30 97.5 F L 79 18 128/77 93 L 01/17/18 04:15 60 18 98 01/17/18 00:47 98.4 F 71 16 113/70 95 01/16/18 20:15 97.7 F 81 18 94 L 01/16/18 19:17 97.7 F 81 18 102/66 94 L 01/16/18 18:28 76 22 H 94 L Weight Admit Weight 88.451 kg Weight 86.001 kg I&O: 01/15/18 01/16/18 01/17/18 06:59 06:59 06:59 Intake Total 2050 1520 Output Total 1500 1610 150 Balance 550 -90 -150 Result Diagrams: 01/17/18 04:03 01/17/18 04:03 <Ludmila Garcia - Last Filed: 01/17/18 08:32> - Objective Vital Signs & Weight: Vital Signs (12 hours) Temp Pulse Resp BP Pulse Ox 01/17/18 08:00 98.5 F 83 18 117/78 93 L Weight Admit Weight 88.451 kg Weight 86.001 kg I&O: 01/16/18 01/17/18 01/18/18 06:59 06:59 06:59 Intake Total 1520 700 Output Total 1610 150 Balance -90 550 Result Diagrams: 01/17/18 04:03 01/17/18 04:03 <Yoselin Walton - Last Filed: 01/17/18 19:31> Phys Exam - Physical Examination Constitutional: NAD HEENT: PERRLA, moist MMs Neck: supple, full ROM Respiratory: no wheezing, clear to auscultation bilateral Cardiovascular: RRR, no significant murmur Gastrointestinal: soft, non-tender, positive bowel sounds absent in LLE Neurological: non-focal, moves all 4 limbs Psychiatric: normal affect, A&O x 3 Skin: no rash <Ludmila Garcia - Last Filed: 01/17/18 08:32> Dx/Plan (1) Acute kidney injury superimposed on chronic kidney disease Code(s): N17.9 - ACUTE KIDNEY FAILURE, UNSPECIFIED; N18.9 - CHRONIC KIDNEY DISEASE, UNSPECIFIED Status: Acute (2) Hyponatremia Code(s): E87.1 - HYPO-OSMOLALITY AND HYPONATREMIA Status: Acute (3) Osteomyelitis of left foot Code(s): M86.9 - OSTEOMYELITIS, UNSPECIFIED Status: Acute (4) Sepsis Code(s): A41.9 - SEPSIS, UNSPECIFIED ORGANISM Status: Acute (5) CHF (congestive heart failure) Code(s): I50.9 - HEART FAILURE, UNSPECIFIED Status: Chronic (6) COPD (chronic obstructive pulmonary disease) Status: Chronic (7) DM2 (diabetes mellitus, type 2) Status: Chronic Qualifiers: Diabetes mellitus detention insulin use: with detention use Diabetes mellitus complication status: with kidney complications Diabetes mellitus complication detail: with chronic kidney disease Chronic kidney disease stage : stage 3 (moderate) Qualified Code(s): E11.22 - Type 2 diabetes mellitus with diabetic chronic kidney disease; N18.3 - Chronic kidney disease, stage 3 ( moderate); Z79.4 - halfway (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 of insulin (8) Afib Code(s): I48.91 - UNSPECIFIED ATRIAL FIBRILLATION Status: Chronic Qualifiers: Atrial fibrillation type: chronic Qualified Code(s): I48.2 - Chronic atrial fibrillation (9) HLD (hyperlipidemia) Code(s): E78.5 - HYPERLIPIDEMIA, UNSPECIFIED Status: Acute - Plan Plan: This is a 72 yo male with a PMH of Afib, CHF, CKD, HTN, DM, COPD, HLD - initially presented for sepsis 2/2 to osteomyelitis of left foot. Patient refused BKA. Now awaiting placement with home health and home wound care. Sepsis 2/2 osteomyelitis - Hypotension resolvins/70s - Pt. is on vanc and zosyn with random vanc 15.3 and most recent vanc trough 22. - Pt. has been responsive to IVFs, we will continue to monitor his fluid status vs. his vital signs for an appropriate stopping point of fluids. - Blood cultures, urine, wound cultures remain neg. UA is negative. - EKG shows paced rhythm, CXR shows no acute process. - We will continue monitoring vital signs Osteomyelitis - With failed outpt treatment of cellulitis with unknown abx. - Wound care has been consulted. - Dr. Underwood evaluated pt. and deemed that BKA was the most appropriate treatment for the ostoemyelitis. Pt. currently does not wish to pursue this avenue. We will work to get outpt. wound care set up with this pt. Alternative Co2 revascularization not possible in the patient as it would not give enough detail. - Dr. Mccormack contacted and discussed pt. and prognosis. He believes the best option is to push for a correction. - Dr. Young recommended palliative PO antibiotics - Will discharge on cipro and minocyclin for 4 weeks. Follow up imaging, CBC, CRP and BMP. - Will touch base with CM to make sure patient is set to go home today with home health and wound care Hyponatremia - Improved - Pt. is on fluid restriction <2000 mL/day GAVIN on CKD - Stable. BUN/Cr 24/1.87 baseline creatinine appears to be around 2. Today BUN/ Cr 28/1.72 - Will continue to monitor Afib - Pt. is on warfarin at home and INR was therapeutic upon admission. INR therapeutic today at 2.4. DM2 - Moderate SSI - Increased glargine to 65u. Improved glucose today. CHF - Continue to monitor fluid status. Lasix continue to be held. - diet: fluid restrict HLD -Continue home meds COPD -Duoneb, Continue prednisone Code: DNR Prophylaxis: none Family: none at bedside Disposition: home today with home health and home wound care. Case discussed with Dr. Walton <Ludmila Garcia - Last Filed: 01/17/18 08:32> Attending Addendum - Attending Addendum Date/Time: 01/17/181929 I personally evaluated the patient and discussed the management with Dr. Gracia. I agree with the History, Examination, Assessment and Plan documented above with any addition or exceptions noted below. It was initially thought the patient would go home with home health as he was declined by [facility] but case management got acceptance in [place]. Patient has agreed to go to this facility and will be discharged today. <Yoselin Walton - Last Filed: 01/17/18 19:31>
[2018-01-17] MEDS: Mometasone/Formoterol 120 PUFF INHALER INH SCH (06:57)
[2018-01-17 08:15] VITALS: BP 117/78; TEMP 98.5
[2018-01-17] MEDS: Ferrous Sulfate 325 MG TAB PO SCH (08:21)
[2018-01-17] MEDS: Amiodarone 200 MG TAB PO SCH (08:21)
[2018-01-17] MEDS: Furosemide 40 MG TAB PO SCH (08:22)
[2018-01-17] MEDS: Ascorbic Acid 500 mg Chewable Tablet PO SCH (08:22)
[2018-01-17] MEDS: HumaLOG 300 UNITS/3 ML VIAL SC PRN (12:36)
--- NOTE | 2018-01-18 13:04 | DIS-2 ---
DATE OF ADMISSION: 01/09/2018 DATE OF DISCHARGE: 01/17/2018 RESIDENT: Ludmila Garcia MD ADMITTING ATTENDING: Mikel Morgan MD DISCHARGE ATTENDING: Yoselin Walton MD CONSULTATIONS: Dr. Young, ID; Dr. Srivastava, Pulmonary; Dr. Underwood, Cardiovascular Surgery. PROCEDURES: 1. Chest x-ray on 01/09/2018: Multi-lead automated implantable cardioverter defibrillator is unchanged. Mild cardiomegaly is stable. 2. CT brain on 01/09/2018: No acute intracranial abnormality. 3. X-ray of left foot on 01/09/2018: Soft tissue wound along the medial aspect of great toe metatarsophalangeal joint with changes of septic arthritis, osteomyelitis of the great big toe metatarsophalangeal joint. 4. Chest x-ray on 01/10/2018: No acute findings. 5. X-ray of right foot on 01/10/2018: Soft tissue swelling. No radiographic evidence of aggressive osseous destruction. Incompletely healed fracture, right fibular shaft. Severe osteoarthritic changes, first metatarsophalangeal joint. PRIMARY DIAGNOSIS: Osteomyelitis of left foot. SECONDARY DIAGNOSES: Acute kidney injury on chronic kidney disease, diabetes mellitus type 2, hypertension, congestive heart failure, hyperlipidemia, chronic obstructive pulmonary disease, atrial fibrillation. DISCHARGE MEDICATIONS: 1. Warfarin (Coumadin) 2.5 mg oral at 1700 hours. 2. Ciprofloxacin 250 mg oral twice daily. 3. Minocycline 100 mg oral twice daily. 4. Amiodarone (Cordarone) 200 mg oral daily. 5. Aspirin 81 mg oral daily. 6. Simvastatin (Zocor) 80 mg oral every evening. 7. Carvedilol (Coreg) 3.125 mg oral twice daily. 8. Insulin detemir (Levemir) 60 units subq every morning. 9. Ferrous sulfate 325 mg oral daily. 10. Furosemide 20 mg oral twice daily. DISCONTINUED MEDICATIONS: None. HISTORY OF PRESENT ILLNESS AND HOSPITAL COURSE: This is a 72-year-old male who initially presented with sepsis secondary to osteomyelitis of the left foot. This is a patient of Dr. Mccormack. The patient was treated with unknown antibiotic in the outpatient setting and failed treatment for cellulitis. The patient was started on vancomycin and Zosyn IV. Blood and urine culture showed no growth throughout the stay. Patient had hypotension initially and received IV fluids. On admission, the patient also had hyponatremia and acute kidney injury, which resolved by the end of the stay. Patient has a history of atrial fibrillation and he remained on warfarin for this issue throughout his stay. Dr. Underwood was consulted and recommended BKA of the left lower extremity, but patient declined this procedure. Dr. Young recommended palliative antibiotics for 4-6 weeks since the patient refused getting BKA and revascularization was not possible. The patient had several social issues that delayed placement at a group home facility. He was eventually placed at the group home facility in [place], [place] where he will have wound care and supervision. DISPOSITION: Stable. DISCHARGE INSTRUCTIONS: 1. Location: [facility] facility in the [place], [place]. 2. Diet: Heart healthy. 3. Activity: [place] with walker. 4. Follow up with Dr. Mccormack as soon as out of the SNF. I will contact Dr. Mccormack and update him on the patient's condition. FANY
--- NOTE | 2018-01-19 12:10 | EKG ---
Test Reason : Blood Pressure : / mmHG Vent. Rate : 070 BPM Atrial Rate : 069 BPM P-R Int : 000 ms QRS Dur : 204 ms QT Int : 532 ms P-R-T Axes : 000 217 033 degrees QTc Int : 574 ms Ventricular-paced rhythm Biventricular pacemaker detected Abnormal ECG Confirmed by THUAN ALBRECHT ([id number]), proposal editor CRISTEL PRESTON ([id number]) on 01/19/2018 12:10:17 PM Referred By: Confirmed By:THUAN ALBRECHT
--- NOTE | 2018-01-19 12:10 | EKG ---
Test Reason : Blood Pressure : / mmHG Vent. Rate : 070 BPM Atrial Rate : 068 BPM P-R Int : 000 ms QRS Dur : 210 ms QT Int : 538 ms P-R-T Axes : 000 217 031 degrees QTc Int : 581 ms Ventricular-paced rhythm Biventricular pacemaker detected Abnormal ECG Confirmed by THUAN ALBRECHT ([id number]), acquisitions editor CRISTEL PRESTON ([id number]) on 01/19/2018 12:10:19 PM Referred By: Confirmed By:THUAN ALBRECHT
== END 2018-01-17 14:59 | DRG 872 ==
LOC: ERS 16:21 → 2NO 23:19 → IMCU/EMU 01-10 15:19 → T4-A 01-15 18:43
PROVIDERS: ADMIT Student in an Organized Health Care Education/Training Program; ATTEND Student in an Organized Health Care Education/Training Program
DX: A41.9 Sepsis, unspecified organism (principal); N17.9 Acute kidney failure, unspecified; E87.1 Hypo-osmolality and hyponatremia; I50.22 Chronic systolic (congestive) heart failure; L97.429 Non-pressure chronic ulcer of left heel and midfoot with unspecified severity; I13.0 Hypertensive heart and chronic kidney disease with heart failure and stage 1 through stage 4 chronic kidney disease, or unspecified chronic kidney disease; M86.8X7 Other osteomyelitis, ankle and foot; N18.4 Chronic kidney disease, stage 4 (severe); R65.20 Severe sepsis without septic shock; E11.621 Type 2 diabetes mellitus with foot ulcer; E78.5 Hyperlipidemia, unspecified; E11.51 Type 2 diabetes mellitus with diabetic peripheral angiopathy without gangrene; I48.0 Paroxysmal atrial fibrillation; J44.9 Chronic obstructive pulmonary disease, unspecified; I25.2 Old myocardial infarction; I25.10 Atherosclerotic heart disease of native coronary artery without angina pectoris; S30.820A Blister (nonthermal) of lower back and pelvis, initial encounter; Z66 Do not resuscitate; E11.22 Type 2 diabetes mellitus with diabetic chronic kidney disease; Z86.74 Personal history of sudden cardiac arrest; K21.9 Gastro-esophageal reflux disease without esophagitis; Z95.810 Presence of automatic (implantable) cardiac defibrillator; Z86.14 Personal history of Methicillin resistant Staphylococcus aureus infection; Z87.891 Personal history of nicotine dependence; Z79.4 Long term (current) use of insulin; Z79.01 Long term (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 of anticoagulants
CPT/HCPCS: 36415; 36416; 70450; 71045; 80048; 80053; 80202; 80306; 80307; 81003; 82553; 83605; 83880; 84484; 85025; 85610; 85652; 85730; 86140; 87040; 87070; 87086; 87205; 93005; 93306; 94640; 96365; A4216; G8978-GP-CL; G8979-GP-CJ; G8987-GO-CI; J1644; J2543; J3370; J7050; J7120; J7620